=== PATIENT | female | born 1945 | race Caucasian/White ===

== ENCOUNTER 2016-12-29 20:00 | Observation (INO) | payer MEDICARE ==
[2016-12-29] MEDS ORDERED: Ondansetron 4 MG/2 ML SDV IVPUSH ONE (20:45)
[2016-12-29] MEDS ORDERED: Sodium Chloride 0.9% 1,000 ML IV ONE (20:45)
--- NOTE | 2016-12-29 21:10 | EDM.PDOC ---
ED HPI GENERAL MEDICAL PROBLEM - General Chief Complaint: General Stated Complaint: LIGHT HEADED Time Seen by Provider: 12/29/16 20:38 Source of Information: Reports: Patient, Family (son) History Limitations: Reports: No Limitations - History of Present Illness INITIAL COMMENTS - FREE TEXT/NARRATIVE: Patient presents to ER after getting her platelet transfusion here in the hospital, with lightheadedness and nearly fainted when walking out of the hospital. She says she has had diarrhea 4 times today and vomited once. She hasn't been drinking very much water she admits. She had a recent UTI and finished antibiotics 4 days ago with no recent dysuria. She has Myelodysplastic Syndrome. No CHF. She has had episodes of vomiting, diarrhea and dehydration with her chemo a few times in the past. She is still having nausea. - Related Data Allergies Allergy/AdvReac Type Severity Reaction Status Date / Time Penicillins Allergy Respiratory Verified 12/29/16 20:30 Distress Home Meds: Home Meds Cholestyramine/Sucrose [Cholestyramine Packet] 4 gm PO DAILY PRN 09/08/16 [ History] Citalopram Hydrobromide [Celexa] 40 mg PO DAILY 09/08/16 [History] LORazepam 1 mg PO Q6HR PRN 09/08/16 [History] traZODone HCl [Trazodone HCl] 50 mg PO BEDTIME 09/08/16 [History] Albuterol [Proventil Neb Soln] 1 ampule INH QID PRN 12/08/16 [History] Ferrous Sulfate 325 mg PO DAILY 12/08/16 [History] Omeprazole 20 mg PO DAILY PRN 12/08/16 [History] Cholecalciferol (Vitamin D3) [Vitamin D3] 1,000 units PO DAILY 12/09/16 [History ] Cyanocobalamin (Vitamin B12) [Vitamin B12] 500 mcg PO DAILY 12/09/16 [History] Methocarbamol [Robaxin] 500 mg PO TID PRN 12/09/16 [History] Ondansetron [Zofran ODT] 4 mg PO Q6H PRN 12/09/16 [History] Turmeric/Turmeric Root Extract [Turmeric 500 mg Capsule] 1 cap PO DAILY [History] hydrOXYzine HCl [Atarax] 25 mg PO Q6H PRN 12/09/16 [History] Fluticasone/Vilanterol [Breo Ellipta 200-25 Mcg INH] 1 puff INH DAILY 12/29/16 [ History] Past Medical History HEENT History: Reports: Impaired Vision Cardiovascular History: Reports: Blood Clots/VTE/DVT, Hypertension, SOB on Exertion Respiratory History: Reports: COPD Gastrointestinal History: Reports: Chronic Diarrhea Genitourinary History: Reports: None 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: Musculoskeletal History: Reports: Arthritis Psychiatric History: Reports: Anxiety, Depression, Panic Attack Hematologic History: Reports: Other (See Below) Other Hematologic History: platelets range from 8-10 with MDS Immunologic History: Reports: Immunosuppression Oncologic (Cancer) History: Reports: Other (See Below) Other Oncologic History: MDS Dermatologic History: Reports: Psoriasis - Infectious Disease History Infectious Disease History: Reports: Chicken Pox, Measles, Mumps, Shingles - Past Surgical History HEENT Surgical History: Reports: None Cardiovascular Surgical History: Reports: None Respiratory Surgical History: Reports: None GI Surgical History: Reports: Cholecystectomy, Colonoscopy, EGD Female Surgical History: Reports: Hysterectomy Musculoskeletal Surgical History: Reports: None Oncologic Surgical History: Reports: None Dermatological Surgical History: Reports: None Social & Family History - Tobacco Use Smoking Status *Q: Former Smoker Years of Tobacco use: 35 Packs/Tins Daily: 1 Used Tobacco, but Quit: Yes Month Tobacco Last Used: 05/31/2013 Second Hand Smoke Exposure: No - Caffeine Use Caffeine Use: Reports: Coffee, Tea - Alcohol Use Days Per Week of Alcohol Use: 7 Number of Drinks Per Day: 20 Total Drinks Per Week: 140 - Recreational Drug Use Recreational Drug Use: Yes Drug Use in Last 12 Months: No Recreational Drug Type: Reports: Amphetamines (Speed), Marijuana/Hashish ED ROS GENERAL - Review of Systems Review Of Systems: See Below Constitutional: Reports: Decreased Appetite. Denies: Fever, Chills, Diaphoresis HEENT: Denies: Throat Pain, Vision Change Respiratory: Denies: Shortness of Breath, Cough Cardiovascular: Reports: Lightheadedness, Syncope (near). Denies: Chest Pain GI/Abdominal: Reports: Diarrhea, Vomiting. Denies: Abdominal Pain, Constipation : Denies: Dysuria, Flank Pain Musculoskeletal: Reports: No Symptoms Skin: Denies: Cyanosis, Jaundice, Mottled, Pallor, Diaphoresis Neurological: Denies: Confusion, Dizziness, Headache, Seizure, Syncope, Trouble Speaking Psychiatric: Denies: Agitation, Anxiety, Confusion ED EXAM, GENERAL - Physical Exam Exam: See Below Exam Limited By: No Limitations General Appearance: Alert, WD/WN, No Apparent Distress Eye Exam: Bilateral Eye: EOMI, Normal Inspection, PERRL Ears: Normal External Exam, Hearing Grossly Normal Nose: Normal Inspection, No Blood Throat/Mouth: Normal Inspection, Normal Lips, Normal Oropharynx, Normal Voice, No Airway Compromise Head: Atraumatic, Normocephalic Neck: Normal Inspection, Supple, Non-Tender, Full Range of Motion Respiratory/Chest: No Respiratory Distress, Lungs Clear, Normal Breath Sounds, No Accessory Muscle Use Cardiovascular: Normal Peripheral Pulses, Regular Rate, Rhythm, No Murmur Peripheral Pulses: 2+: Carotid (L), Carotid (R), Radial (L), Radial (R), Posterior Tibial (L), Posterior Tibial (R) GI/Abdominal: Normal Bowel Sounds, Soft, No Organomegaly, Tender (mildly, non- localized). No: Distended, Guarding, Rigid Back Exam: No: CVA Tenderness (L), CVA Tenderness (R) Extremities: Normal Inspection, Normal Range of Motion, Non-Tender, No Pedal Edema Neurological: Alert, Oriented, Normal Cognition, No Motor/Sensory Deficits Psychiatric: Normal Affect, Normal Mood Skin Exam: Warm, Dry, Intact, Normal Color, No Rash Course - Vital Signs Last Recorded V/S: Last Vital Signs Temp 98.3 F 12/29/16 20:00 Pulse 75 12/29/16 20:00 Resp 22 H 12/29/16 20:00 BP 125/54 L 12/29/16 20:00 Pulse Ox 82 L 12/29/16 20:00 - Orders/Labs/Meds Orders: Active Orders 24 hr Category Date Time Status Patient Status Manage Transfer [TRANSFER] Routine ADT 12/29/16 22:15 Ordered Patient Status [ADT] Routine ADT 12/29/16 22:14 Ordered RED BLOOD CELLS LP [BBK] Routine Lab 12/29/16 21:53 Ordered TYPE AND SCREEN [BBK] Stat Lab 12/29/16 21:53 Ordered Transfuse PRBC [Transfuse Red Blood Cells] [COMM] Oth 12/29/16 22:04 Ordered Routine Labs: Laboratory Tests 12/29/16 12/29/16 Range/Units 20:55 20:55 WBC 4.8 L (5.0-10.0) 10^3/uL RBC 2.54 L (3.80-5.50) 10^6/uL Hgb 6.6 L* (12.0-16.0) g/dL Hct 21.7 L (37.0-47.0) % MCV 85.6 (82.0-92.0) fL MCH 26.1 L (27.0-31.0) pg MCHC 30.5 L (32.0-36.0) g/dL RDW 27.3 H (11.5-14.5) % Plt Count 32 L (150-300) 10^3/uL MPV 7.0 L (7.4-10.4) fL Neut % (Auto) 61.1 (50.0-70.0) % Lymph % (Auto) 26.1 (20.0-40.0) % [place] % (Auto) 11.5 H (2.0-8.0) % Eos % (Auto) 0.7 L (1.0-3.0) % Baso % (Auto) 0.6 (0.0-1.0) % Neut # (Auto) 2.9 (2.5-7.0) 10^3/uL Lymph # (Auto) 1.3 (1.0-4.0) 10^3/uL [place] # (Auto) 0.6 (0.1-0.8) 10^3/uL Eos # (Auto) 0.0 L (0.1-0.3) 10^3/uL Baso # (Auto) 0.0 (0.0-0.1) 10^3/uL Sodium 143 (136-145) mmol/L Potassium 3.9 (3.3-5.3) mmol/L Chloride 107 (98-115) mmol/L Carbon Dioxide 25.5 (21.0-32.0) mmol/L BUN 16 (6-25) mg/dL Creatinine 0.93 (0.51-1.17) mg/dL Est Cr Clr Drug Dosing 52.69 mL/min Estimated GFR (MDRD) 60 mL/min Glucose 112 H (70-110) mg/dL Calcium 8.5 L (8.7-10.3) mg/dL Meds: Medications Discontinued Medications Generic Name Dose Route Start Last Admin Trade Name Lexy PRN Reason Stop Dose Admin Sodium Chloride 1,000 mls @ 999 mls/hr 12/29/16 20:45 12/29/16 21:03 Normal Saline IV 12/29/16 21:45 999 mls/hr .BOLUS ONE Administration Ondansetron HCl 4 mg 12/29/16 20:45 12/29/16 21:04 Zofran IVPUSH 12/29/16 20:46 4 mg ONETIME ONE Administration - Re-Assessments/Exams Free Text/Narrative Re-Assessment/Exam: 12/29/16 22:09 Hg is 6.6 and platelets 32. Recent labs show Hg 7.7 to 8.5 in last few weeks. Pt has never needed a transfusion before but has had platelets several times. I discussed with Dr. Evelin Simon who accepts for admit and two units of PRBCs. Pt agrees as well. Pt has had one liter of NS and will give the two units IP. Departure - Departure Time of Disposition: 22:12 Disposition: Refer to Observation Condition: Good Clinical Impression: Myelodysplastic syndrome Anemia Qualifiers: Anemia type: other cause - Discharge Information Referrals: Evelin Briones MD [Primary Care Provider] - Forms: ED Department Discharge - My Orders Last 24 Hours: My Active Orders 12/29/16 21:53 RED BLOOD CELLS LP [BBK] Routine TYPE AND SCREEN [BBK] Stat 12/29/16 22:04 Transfuse PRBC [Transfuse Red Blood Cells] [COMM] Routine 12/29/16 22:14 Patient Status [ADT] Routine 12/29/16 22:15 Patient Status Manage Transfer [TRANSFER] Routine - Assessment/Plan Last 24 Hours: My Active Orders 12/29/16 21:53 RED BLOOD CELLS LP [BBK] Routine TYPE AND SCREEN [BBK] Stat 12/29/16 22:04 Transfuse PRBC [Transfuse Red Blood Cells] [COMM] Routine 12/29/16 22:14 Patient Status [ADT] Routine 12/29/16 22:15 Patient Status Manage Transfer [TRANSFER] Routine
[2016-12-29] MEDS ORDERED: Cholestyramine/Sucrose Powder 4 GM Packet PO PRN (22:54)
[2016-12-29] MEDS ORDERED: LORazepam 0.5 MG Tab PO PRN (22:54)
[2016-12-29] MEDS ORDERED: hydrOXYzine HCl 25 MG Tab PO PRN (22:54)
[2016-12-29] MEDS ORDERED: Ondansetron 4 MG Tab.DIS PO PRN (22:54)
[2016-12-29] MEDS ORDERED: Methocarbamol 500 MG Tab PO PRN (22:54)
[2016-12-29] MEDS ORDERED: Omeprazole 20 MG Cap.CR PO PRN (22:54)
[2016-12-29] MEDS ORDERED: Ondansetron 4 MG/2 ML SDV IVPUSH PRN (22:58)
[2016-12-29] MEDS ORDERED: Albuterol 0.083% 2.5 MG/3 ML Neb Soln INH PRN (23:41)
[2016-12-30] MEDS ORDERED: traZODone 50 MG Tab PO ONE
[2016-12-30 06:31] VITALS: BP 112/55
[2016-12-30] MEDS ORDERED: Ferrous Sulfate 325 MG Tab PO SCH (08:00)
--- NOTE | 2016-12-30 08:38 | PCM.DCSUM1 ---
Discharge Summary - Hospital Course Free Text/Narrative:: Jennifer is being discharged from observation. She as admitted yesterday (12/29 ) due to anemia. She has a hx of myelodysplastic syndrome, thus far primarily affecting her platelets. She has an oncologist at [facility] in [place]. She does take chemotherapy. She has also had platelet transfusions. She had just finished getting her platelets yesterday when she went to leave and felt very weak and lightheaded, nearly having a syncopal episode. She was brought to the ER for evaluation. She had also had some diarrhea and an episode of vomiting. IVF's were started. Labs were obtained. She was noted to have a hemoglobin of 6.6. She does have a hx of anemia with recent levels being as high as 8.5. She has no sign of active blood loss. She was typed and screened and received 2 units of PRBC's. She states this morning she is feeling much better. She has more strength. She feels she could go home. Hemoglobin this AM Was 8.7, platelet were 38,000 (up from 32,000 yesterday). BP has been stable. Nausea has resolved and she was able to eat breakfast. She has not had a BM since she was admitted last evening but is passing gas. She is due for repeat CBC on 01/04 as well as going through another round of chemotherapy next week. - Discharge Data Discharge Date: 12/30/16 Discharge Disposition: Home, Self-Care 01 Condition: Good - Patient Instructions Diet: Regular Diet as Tolerated - Discharge Plan Home Medications: Home Meds Cholestyramine/Sucrose [Cholestyramine] 4 gm PO DAILY PRN 09/08/16 [History] Citalopram Hydrobromide [Celexa] 40 mg PO DAILY 09/08/16 [History] LORazepam 1 mg PO Q6HR PRN 09/08/16 [History] traZODone HCl [Trazodone HCl] 50 mg PO BEDTIME 09/08/16 [History] Albuterol [Proventil Neb Soln] 2.5 mg INH QID PRN 12/08/16 [History] Ferrous Sulfate 325 mg PO DAILY 12/08/16 [History] Omeprazole 20 mg PO DAILY PRN 12/08/16 [History] Cholecalciferol (Vitamin D3) [Vitamin D3] 1,000 units PO DAILY 12/09/16 [History ] Cyanocobalamin (Vitamin B12) [Vitamin B12] 500 mcg PO DAILY 12/09/16 [History] Methocarbamol [Robaxin] 500 mg PO TID PRN 12/09/16 [History] Ondansetron [Zofran ODT] 4 mg PO Q6H PRN 12/09/16 [History] Turmeric/Turmeric Root Extract [Turmeric 500 mg Capsule] 1 cap PO DAILY [History] hydrOXYzine HCl [Atarax] 25 mg PO Q6H PRN 12/09/16 [History] Fluticasone/Vilanterol [Breo Ellipta 200-25 Mcg INH] 1 puff INH DAILY 12/29/16 [ History] Referrals: Evelin Briones MD [Primary Care Provider] - - Discharge Summary/Plan Comment DC Time >30 min.: No - General Info Date of Service: 12/30/16 Admission Dx/Problem (Free Text: Anemia, MDS. Subjective Update: 10 point ROS obtained, all pertinent positives listed in summary, all other systems are negative. - Patient Data Vitals - Most Recent: Last Vital Signs Temp 97.5 F 12/30/16 06:30 Pulse 51 L 12/30/16 06:30 Resp 20 12/30/16 06:30 BP 112/55 L 12/30/16 06:30 Pulse Ox 96 12/30/16 06:00 Weight - Most Recent: 171 lb 9.6 oz I&O - Last 24 hours: Intake & Output 12/29/16 12/30/16 12/30/16 22:59 06:59 14:59 Intake Total 1199 1779 Balance 1199 1779 Lab Results - Last 24 hrs: Laboratory Results - last 24 hr 12/30/16 Range/Units 07:40 WBC 3.9 L (5.0-10.0) 10^3/uL RBC 3.29 L (3.80-5.50) 10^6/uL Hgb 8.7 L (12.0-16.0) g/dL Hct 28.6 L (37.0-47.0) % MCV 87.0 (82.0-92.0) fL MCH 26.5 L (27.0-31.0) pg MCHC 30.4 L (32.0-36.0) g/dL RDW 22.4 H (11.5-14.5) % Plt Count 38 L (150-300) 10^3/uL MPV 11.0 H (7.4-10.4) fL Neut % (Auto) 49.5 L (50.0-70.0) % Lymph % (Auto) 42.9 H (20.0-40.0) % [place] % (Auto) 7.1 (2.0-8.0) % Eos % (Auto) 0.1 L (1.0-3.0) % Baso % (Auto) 0.4 (0.0-1.0) % Neut # (Auto) 1.9 L (2.5-7.0) 10^3/uL Lymph # (Auto) 1.7 (1.0-4.0) 10^3/uL [place] # (Auto) 0.3 (0.1-0.8) 10^3/uL Eos # (Auto) 0.0 L (0.1-0.3) 10^3/uL Baso # (Auto) 0.0 (0.0-0.1) 10^3/uL Med Orders - Current: Current Medications Albuterol (Proventil Neb Soln) 2.5 mg INH QID PRN PRN Reason: Dyspnea Cholecalciferol (Vitamin D3) 1,000 units PO DAILY [facility] Last Admin: 12/30/16 08:31 Dose: 1,000 units Cholestyramine Resin (Cholestyramine Packet) 4 gm PO DAILY PRN PRN Reason: Diarrhea Citalopram Hydrobromide (Celexa) 40 mg PO DAILY [facility] Last Admin: 12/30/16 08:31 Dose: 40 mg Cyanocobalamin (Vitamin B12) 500 mcg PO DAILY [facility] Last Admin: 12/30/16 08:31 Dose: 500 mcg Ferrous Sulfate (Ferrous Sulfate) 325 mg PO WITHBREAKFAST [facility] Last Admin: 12/30/16 08:31 Dose: 325 mg Hydroxyzine HCl (Atarax) 25 mg PO Q6H PRN PRN Reason: Itching Lorazepam (Ativan) 1 mg PO Q6H PRN PRN Reason: Anxiety Methocarbamol (Robaxin) 500 mg PO TID PRN PRN Reason: muscle spasms Omeprazole (Omeprazole) 20 mg PO DAILY PRN PRN Reason: reflux Ondansetron HCl (Zofran Odt) 4 mg PO Q6H PRN PRN Reason: Nausea Ondansetron HCl (Zofran) 4 mg IVPUSH Q6H PRN PRN Reason: Nausea/Vomiting Trazodone HCl (Trazodone) 50 mg PO BEDTIME MIKIE Discontinued Medications Sodium Chloride (Normal Saline) 1,000 mls @ 999 mls/hr IV .BOLUS ONE Stop: 12/29/16 21:45 Last Admin: 12/29/16 21:03 Dose: 999 mls/hr Non-Formulary Medication (Turmeric/Turmeric Root Extract [Turmeric 500 Mg Capsule]) 1 cap PO DAILY MIKIE Ondansetron HCl (Zofran) 4 mg IVPUSH ONETIME ONE Stop: 12/29/16 20:46 Last Admin: 12/29/16 21:04 Dose: 4 mg Trazodone HCl (Trazodone) 50 mg PO ONETIME ONE Stop: 12/30/16 00:01 Last Admin: 12/30/16 00:37 Dose: 50 mg - Exam Quality Assessment: Reports: Supplemental Oxygen General: Reports: Alert, Oriented, Cooperative, No Acute Distress Lungs: Reports: Wheezing (Very faint expiratory wheeze at the left lung base, otherwise clear.) Cardiovascular: Reports: Regular Rate, Regular Rhythm, No Murmurs GI/Abdominal Exam: Normal Bowel Sounds *Q Meaningful Use (DIS) - VTE *Q VTE Criteria *Q: - Stroke *Q Stroke Criteria *Q: - AMI *Q AMI Criteria *Q:
[2016-12-30] MEDS ORDERED: Cholecalciferol (Vitamin D3) 1,000 Unit Tab PO SCH (09:00)
[2016-12-30] MEDS ORDERED: Citalopram 20 MG Tab PO SCH (09:00)
[2016-12-30] MEDS ORDERED: Cyanocobalamin (Vitamin B12) 500 MCG Tab PO SCH (09:00)
[2016-12-30] MEDS ORDERED: Fluticasone/Vilanterol 200 MCG/25 MCG Inhalation Powder Kit of 14 IH SCH (09:00)
[2016-12-30] MEDS ORDERED: traZODone 50 MG Tab PO SCH (21:00)
== END 2016-12-30 11:45 | disposition home or self-care (01) ==
LOC: KA.ED 20:00 → KA.MS 22:15
PROVIDERS: ADMIT Physician Assistant Surgical; ATTEND Internal Medicine
DX: D69.3 Immune thrombocytopenic purpura (principal); D46.Z Other myelodysplastic syndromes; I10 Essential (primary) hypertension; J44.9 Chronic obstructive pulmonary disease, unspecified; F41.9 Anxiety disorder, unspecified; F32.9 Major depressive disorder, single episode, unspecified; Z90.49 Acquired absence of other specified parts of digestive tract; Z90.710 Acquired absence of both cervix and uterus; Z98.890 Other specified postprocedural states; Z87.891 Personal history of nicotine dependence; Z88.0 Allergy status to penicillin; Z79.899 Other long term (current) drug therapy
CPT/HCPCS: 36415; 36430; 80048; 85025; 86850; 86900; 86901; 86920; 86922; 96361; 96374; 99285; A9270; G0378; J2405; J7030; J7050; P9016; P9034; 99220

== ENCOUNTER 2017-02-14 21:52 | Inpatient (IN) | payer MEDICARE ==
--- NOTE | 2017-02-14 22:33 | EDM.PDOC ---
ED HPI GENERAL MEDICAL PROBLEM - General Chief Complaint: Gastrointestinal Problem Stated Complaint: rectal bleeding Time Seen by Provider: 02/14/17 22:27 Source of Information: Reports: Patient History Limitations: Reports: No Limitations - History of Present Illness INITIAL COMMENTS - FREE TEXT/NARRATIVE: Patient is a 71-year-old female who presents to emergency department this evening with a complaint of rectal bleeding. She states that she had a bowel movement at noon today and noticed blood on the toilet paper and some in the bowl. She wore an undergarment pad for most of the day and had to change it twice because blood had accumulated. Patient underwent transfusion for 2 units of blood and platelets yesterday for CA condition. Patient denies any bleeding from gums or urine, chest pain, shortness of breath, abdominal pain, day, blurry vision, or recent falls. Onset: Today Onset Date: 02/14/17 Onset Time: 12:00 Duration: Hour(s): Location: Reports: Other (rectum) Improves with: Reports: None Worsens with: Reports: None Associated Symptoms: Reports: No Other Symptoms - Related Data Allergies Allergy/AdvReac Type Severity Reaction Status Date / Time Penicillins Allergy Respiratory Verified 02/14/17 23:05 Distress Home Meds: Home Meds Cholestyramine/Sucrose [Cholestyramine] 4 gm PO DAILY PRN 09/08/16 [History] Citalopram Hydrobromide [Celexa] 40 mg PO DAILY 09/08/16 [History] LORazepam 1 mg PO Q6HR PRN 09/08/16 [History] traZODone HCl [Trazodone HCl] 50 mg PO BEDTIME 09/08/16 [History] Albuterol [Proventil Neb Soln] 2.5 mg INH QID PRN 12/08/16 [History] Ferrous Sulfate 325 mg PO DAILY 12/08/16 [History] Cholecalciferol (Vitamin D3) [Vitamin D3] 1,000 units PO DAILY 12/09/16 [History ] Cyanocobalamin (Vitamin B12) [Vitamin B12] 500 mcg PO DAILY 12/09/16 [History] Methocarbamol [Robaxin] 500 mg PO TID PRN 12/09/16 [History] Ondansetron [Zofran ODT] 4 mg PO Q6H PRN 12/09/16 [History] Turmeric/Turmeric Root Extract [Turmeric 500 mg Capsule] 1 cap PO DAILY [History] hydrOXYzine HCl [Atarax] 25 mg PO Q6H PRN 12/09/16 [History] Fluticasone/Vilanterol [Breo Ellipta 200-25 Mcg INH] 1 puff INH DAILY 12/29/16 [ History] Past Medical History HEENT History: Reports: Impaired Vision Cardiovascular History: Reports: Blood Clots/VTE/DVT, Hypertension, SOB on Exertion Respiratory History: Reports: COPD Gastrointestinal History: Reports: Chronic Diarrhea Genitourinary History: Reports: None [employer]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[employer]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: Musculoskeletal History: Reports: Arthritis Psychiatric History: Reports: Anxiety, Depression, Panic Attack Hematologic History: Reports: Other (See Below) Other Hematologic History: platelets range from 8-10 with MDS Immunologic History: Reports: Immunosuppression Oncologic (Cancer) History: Reports: Other (See Below) Other Oncologic History: MDS Dermatologic History: Reports: Psoriasis - Infectious Disease History Infectious Disease History: Reports: Chicken Pox, Measles, Mumps, Shingles - Past Surgical History HEENT Surgical History: Reports: None Cardiovascular Surgical History: Reports: None Respiratory Surgical History: Reports: None GI Surgical History: Reports: Cholecystectomy, Colonoscopy, EGD Female Surgical History: Reports: Hysterectomy Musculoskeletal Surgical History: Reports: None Oncologic Surgical History: Reports: None Dermatological Surgical History: Reports: None Social & Family History - Tobacco Use Smoking Status *Q: Former Smoker Years of Tobacco use: 35 Packs/Tins Daily: 1 Used Tobacco, but Quit: Yes Month Tobacco Last Used: 05/31/2013 Second Hand Smoke Exposure: No - Caffeine Use Caffeine Use: Reports: Coffee, Tea - Alcohol Use Days Per Week of Alcohol Use: 0 Number of Drinks Per Day: 0 Total Drinks Per Week: 0 - Recreational Drug Use Recreational Drug Use: Yes Drug Use in Last 12 Months: No Recreational Drug Type: Reports: Amphetamines (Speed), Marijuana/Hashish Recreational Drug Use Frequency: Not Used In Over 6 Months ED ROS GENERAL - Review of Systems Review Of Systems: ROS reveals no pertinent complaints other than HPI. Constitutional: Reports: No Symptoms HEENT: Reports: No Symptoms Respiratory: Reports: No Symptoms Cardiovascular: Reports: No Symptoms Endocrine: Reports: No Symptoms GI/Abdominal: Reports: Bloody Stool, Diarrhea : Reports: No Symptoms Musculoskeletal: Reports: No Symptoms Skin: Reports: No Symptoms Neurological: Reports: No Symptoms Psychiatric: Reports: No Symptoms Hematologic/Lymphatic: Reports: Easy Bleeding, Easy Bruising Immunologic: Reports: No Symptoms ED EXAM, GENERAL - Physical Exam Exam: See Below Exam Limited By: No Limitations General Appearance: Alert, WD/WN, No Apparent Distress Eye Exam: Bilateral Eye: Normal Inspection Nose: Normal Inspection, Normal Mucosa, No Blood Throat/Mouth: Normal Inspection, Normal Oropharynx, No Airway Compromise Head: Atraumatic, Normocephalic Neck: Normal Inspection, Supple Respiratory/Chest: No Respiratory Distress, Lungs Clear, Normal Breath Sounds, No Accessory Muscle Use, Chest Non-Tender Cardiovascular: Regular Rate, Rhythm, No Murmur GI/Abdominal: Normal Bowel Sounds, Soft, Non-Tender Rectal (Female) Exam: Hemorrhoids Back Exam: Normal Inspection Extremities: Normal Inspection, No Pedal Edema Neurological: Alert, Oriented, Normal Cognition Psychiatric: Normal Affect, Normal Mood Skin Exam: Warm, Dry, Intact, Normal Color, No Rash Course - Vital Signs Last Recorded V/S: Last Vital Signs Temp 98.5 F 02/14/17 21:55 Pulse 71 02/14/17 21:55 Resp 20 02/14/17 21:55 BP 132/53 L 02/14/17 21:55 Pulse Ox 94 L 02/14/17 21:55 - Orders/Labs/Meds Orders: Active Orders 24 hr Category Date Time Status CBC WITH AUTO DIFF [HEME] Stat Lab 02/14/17 22:00 Ordered CMP [COMPREHENSIVE METABOLIC PN,CMP] [CHEM] Stat Lab 02/14/17 22:00 Ordered INR,PT,PROTHROMBIN TIME [COAG] Stat Lab 02/14/17 22:01 Ordered PTT,PARTIAL THROMBOPLSTIN TIME [COAG] Stat Lab 02/14/17 22:00 Ordered - Re-Assessments/Exams Free Text/Narrative Re-Assessment/Exam: 02/14/17 23:03 Patient afebrile, nontoxic appearing. Vital signs stable, asymptomatic. Platelets on 02/08 and 02/12 were 3L, and although the patient underwent transfusion yesterday, platelet values today are only 2L. WBC has remained stable. Patient will be given platelets and admitted to hospital. 02/14/17 23:05 Departure - Departure Time of Disposition: 23:14 Disposition: Admitted As Inpatient 67 Condition: Fair Clinical Impression: Thrombocytopenia, Hemorrhoids, external, Rectal bleeding - Discharge Information - My Orders Last 24 Hours: My Active Orders 02/14/17 22:00 CBC WITH AUTO DIFF [HEME] Stat CMP [COMPREHENSIVE METABOLIC PN,CMP] [CHEM] Stat PTT,PARTIAL THROMBOPLSTIN TIME [COAG] Stat 02/14/17 22:01 INR,PT,PROTHROMBIN TIME [COAG] Stat - Assessment/Plan Last 24 Hours: My Active Orders 02/14/17 22:00 CBC WITH AUTO DIFF [HEME] Stat CMP [COMPREHENSIVE METABOLIC PN,CMP] [CHEM] Stat PTT,PARTIAL THROMBOPLSTIN TIME [COAG] Stat 02/14/17 22:01 INR,PT,PROTHROMBIN TIME [COAG] Stat Assessment:: Thrombocytopenia Plan: Admission
[2017-02-14 22:51] LABS: CHLORIDE,CL 107 mmol/L (98-115); SODIUM,NA 142 mmol/L (136-145)
[2017-02-14] MEDS ORDERED: Acetaminophen 325 MG Tab PO ONE (23:01)
[2017-02-14] MEDS ORDERED: diphenhydrAMINE 25 MG Cap PO ONE (23:02)
[2017-02-14] MEDS ORDERED: Albuterol 0.083% 2.5 MG/3 ML Neb Soln INH PRN (23:11)
[2017-02-14] MEDS ORDERED: Ondansetron 4 MG Tab.DIS PO PRN (23:11)
[2017-02-14] MEDS ORDERED: LORazepam 0.5 MG Tab PO PRN (23:11)
[2017-02-14] MEDS ORDERED: hydrOXYzine HCl 25 MG Tab PO PRN (23:11)
[2017-02-15] MEDS ORDERED: traZODone 50 MG Tab ONE (01:11)
[2017-02-15 06:55] VITALS: BP 105/50
[2017-02-15] MEDS ORDERED: Ferrous Sulfate 325 MG Tab PO SCH (09:00)
[2017-02-15] MEDS ORDERED: BREO ELLIPTA INH SCH (09:00)
[2017-02-15] MEDS ORDERED: Fluticasone/Vilanterol 200 MCG/25 MCG Inhalation Powder Kit of 14 IH SCH (09:00)
[2017-02-15] MEDS ORDERED: Citalopram 20 MG Tab PO SCH (09:00)
--- NOTE | 2017-02-15 09:44 | PCM.DCSUM1 ---
Discharge Summary - Hospital Course Free Text/Narrative:: Phyllis is discharged from observation due to low platelets and hemorrhoidal bleeding. She follows with Dr. Granados for myelodysplastic syndrome with pancytopenia. On 02/13/17 she received platelets as well as PRBC's due to labs on 02/12/17 showing WBC of 1.5, Hemoglobin 6.6 and platelets of 3. She presented to the ER on 02/14/17 with rectal bleeding which was found to be related to external hemorrhoids. She has had no episodes of bleeding since she has been in. She was found to have platelets of 2 upon presentation to the ER and so she was given another round of platelets and labs this morning show a stable WBC of 1.4 with a hemoglobin of 7.1 and platelets of 18. She has no dizziness or lightheadedness, some mild SOB that is unchanged from her baseline. "I feel pretty good". She is ready to be discharged home. Of note, she dose state that her Breo is not working as well as her symbicort did and she would like to discuss going back on the symbicort, but she will wait and do this at her next clinic appointment. - Discharge Data Discharge Date: 02/15/17 Discharge Disposition: Home, Self-Care 01 Condition: Good - Discharge Diagnosis/Problem(s) (1) Hemorrhoids, external SNOMED Code(s): 54498800 ICD Code: K64.4 - RESIDUAL HEMORRHOIDAL SKIN TAGS Status: Acute Current Visit: Yes (2) Rectal bleeding SNOMED Code(s): 68211994 ICD Code: K62.5 - HEMORRHAGE OF ANUS AND RECTUM Status: Acute Current Visit: Yes (3) Thrombocytopenia SNOMED Code(s): 316602445 ICD Code: D69.6 - THROMBOCYTOPENIA, UNSPECIFIED Status: Acute Current Visit: Yes (4) MDS (myelodysplastic syndrome) SNOMED Code(s): 028173986 ICD Code: D46.9 - MYELODYSPLASTIC SYNDROME, UNSPECIFIED Status: Acute Current Visit: No - Patient Instructions Diet: Regular Diet as Tolerated Activity: As Tolerated - Discharge Plan Home Medications: Home Meds Cholestyramine/Sucrose [Cholestyramine] 4 gm PO DAILY PRN 09/08/16 [History] Citalopram Hydrobromide [Celexa] 40 mg PO DAILY 09/08/16 [History] LORazepam 1 mg PO Q6HR PRN 09/08/16 [History] traZODone HCl [Trazodone HCl] 50 - 100 mg PO BEDTIME 09/08/16 [History] Albuterol [Proventil Neb Soln] 2.5 mg INH QID PRN 12/08/16 [History] Ferrous Sulfate 325 mg PO DAILY 12/08/16 [History] Cholecalciferol (Vitamin D3) [Vitamin D3] 1,000 units PO DAILY 12/09/16 [History ] Cyanocobalamin (Vitamin B12) [Vitamin B12] 500 mcg PO DAILY 12/09/16 [History] Methocarbamol [Robaxin] 500 mg PO TID PRN 12/09/16 [History] Turmeric/Turmeric Root Extract [Turmeric 500 mg Capsule] 1 cap PO DAILY [History] hydrOXYzine HCl [Atarax] 25 mg PO Q6H PRN 12/09/16 [History] Fluticasone/Vilanterol [Breo Ellipta 200-25 Mcg INH] 1 puff INH DAILY 12/29/16 [ History] Ondansetron HCl [Ondansetron] 8 mg PO Q6H PRN 02/15/17 [History] - Discharge Summary/Plan Comment DC Time >30 min.: No - General Info Date of Service: 02/15/17 Admission Dx/Problem (Free Text: Pancytopenia with profound thrombocytopenia secondary to MDS with hemorrhoidal bleeding. - Review of Systems Systems Review Comment: 10 point ROS obtained, all pertinent positives listed in the HPI, all other systems negative. - Patient Data Vitals - Most Recent: Last Vital Signs Temp 97.6 F 02/15/17 06:54 Pulse 61 02/15/17 06:54 Resp 16 02/15/17 06:54 BP 105/50 L 02/15/17 06:54 Pulse Ox 98 02/15/17 06:54 Weight - Most Recent: 162 lb I&O - Last 24 hours: Intake & Output 02/14/17 02/15/17 02/15/17 22:59 06:59 14:59 Intake Total 654 Output Total 1000 Balance -346 Lab Results - Last 24 hrs: Laboratory Results - last 24 hr 11/26/17 11/27/17 11/27/17 Range/Units 23:32 07:22 07:22 WBC 1.4 L* (5.0-10.0) 10^3/uL RBC 2.44 L (3.80-5.50) 10^6/uL Hgb 7.1 L (12.0-16.0) g/dL Hct 20.8 L (37.0-47.0) % MCV 85.3 (82.0-92.0) fL MCH 29.3 (27.0-31.0) pg MCHC 34.3 (32.0-36.0) g/dL RDW 16.7 H (11.5-14.5) % Plt Count 18 L* (150-300) 10^3/uL MPV 10.4 (7.4-10.4) fL Add Manual Diff Yes Magnesium 1.7 L (1.8-2.4) mg/dL Blood Type O POSITIVE Med Orders - Current: Current Medications Albuterol (Proventil Neb Soln) 2.5 mg INH QID PRN PRN Reason: Dyspnea Citalopram Hydrobromide (Celexa) 40 mg PO DAILY MIKIE Ferrous Sulfate (Ferrous Sulfate) 325 mg PO DAILY MIKIE Hydroxyzine HCl (Atarax) 25 mg PO Q6H PRN PRN Reason: Itching Lorazepam (Ativan) 1 mg PO Q6HR PRN PRN Reason: Anxiety Ondansetron HCl (Zofran Odt) 4 mg PO Q6H PRN PRN Reason: Nausea Ptom Breo Ellipta (Fluticasone /Vilanterol) 200 Mcg /25 Mcg Inhalation Powder 0 each INH DAILY [facility] Last Admin: 02/15/17 08:46 Dose: 1 each Trazodone HCl (Trazodone) 50 mg PO BEDTIME MIKIE Last Admin: 02/15/17 01:17 Dose: 50 mg Discontinued Medications Acetaminophen (Tylenol) 325 mg PO NOW ONE Stop: 02/14/17 23:02 Last Admin: 02/15/17 00:11 Dose: 325 mg Diphenhydramine HCl (Benadryl) 25 mg PO ONETIME ONE Stop: 02/14/17 23:03 Last Admin: 02/15/17 00:12 Dose: 25 mg Sodium Chloride (Normal Saline) 150 mls @ 25 mls/hr IV ONETIME ONE Stop: 02/15/17 06:14 Last Admin: 02/15/17 02:20 Dose: Not Given Sodium Chloride (Normal Saline) Confirm Administered Dose 150 mls @ as directed .ROUTE .STK-MED ONE Stop: 02/15/17 00:06 Last Admin: 02/15/17 01:08 Dose: 25 ml Non-Formulary Medication (Lorazepam [Lorazepam]) 1 mg PO Q6HR PRN PRN Reason: Anxiety Trazodone HCl (Trazodone) Confirm Administered Dose 50 mg .ROUTE .STK-MED ONE Stop: 02/15/17 01:12 Last Admin: 02/15/17 02:19 Dose: Not Given - Exam Quality Assessment: Reports: Supplemental Oxygen General: Reports: Alert, Oriented, Cooperative, No Acute Distress Lungs: Reports: Decreased Breath Sounds, Wheezing (Mild wheezing at the bases bilaterally.) Cardiovascular: Reports: Regular Rate, Regular Rhythm, No Murmurs GI/Abdominal Exam: Normal Bowel Sounds *Q Meaningful Use (DIS) - VTE *Q VTE Criteria *Q: - Stroke *Q Stroke Criteria *Q: - AMI *Q AMI Criteria *Q:
[2017-02-15] MEDS ORDERED: traZODone 50 MG Tab PO SCH (21:00)
== END 2017-02-15 10:53 | disposition home or self-care (01) | DRG 813 ==
LOC: KA.ED 21:52 → KA.MS 23:20
PROVIDERS: ADMIT Physician Assistant Surgical; ATTEND Internal Medicine
PROC: 30233N1 Transfusion of Nonautologous Red Blood Cells into Peripheral Vein, Percutaneous Approach (ICD-10-PCS; principal; 2017-02-15)
DX: D69.6 Thrombocytopenia, unspecified (principal); K62.5 Hemorrhage of anus and rectum; D61.818 Other pancytopenia; K64.4 Residual hemorrhoidal skin tags; I10 Essential (primary) hypertension; J44.9 Chronic obstructive pulmonary disease, unspecified; F41.8 Other specified anxiety disorders; Z87.891 Personal history of nicotine dependence; Z88.0 Allergy status to penicillin; D46.9 Myelodysplastic syndrome, unspecified; Z86.718 Personal history of other venous thrombosis and embolism; Z79.899 Other long term (current) drug therapy
CPT/HCPCS: 36415; 36430; 80053; 83735; 85025; 85610; 85730; 86900; 86901; 94640-76; 99285; A9270-GY; J7030; P9037

== ENCOUNTER 2017-02-20 20:30 | Inpatient (IN) | payer MEDICARE ==
--- NOTE | 2017-02-20 21:04 | EDM.PDOC ---
ED HPI GENERAL MEDICAL PROBLEM - General Chief Complaint: General Stated Complaint: bleeding Time Seen by Provider: 02/20/17 20:49 Source of Information: Reports: Patient History Limitations: Reports: No Limitations - History of Present Illness INITIAL COMMENTS - FREE TEXT/NARRATIVE: Patient presents with ecchymosis and swelling of right dorsal wrist. She has myelodysplastic syndrome and thrombocytopenia. A week ago she was admitted overnight for platelets and rectal/hemorrhoid bleeding. She has COPD and says for the past week she has noticed increased shortness of breath along with a productive cough for 2-3 days. She wasn't aware of a fever but with ER vitals temp is elevated. - Related Data Allergies Allergy/AdvReac Type Severity Reaction Status Date / Time Penicillins Allergy Respiratory Verified 02/20/17 21:35 Distress Home Meds: Home Meds Cholestyramine/Sucrose [Cholestyramine] 4 gm PO DAILY PRN 09/08/16 [History] Citalopram Hydrobromide [Celexa] 40 mg PO DAILY 09/08/16 [History] LORazepam 1 mg PO Q6HR PRN 09/08/16 [History] traZODone HCl [Trazodone HCl] 50 - 100 mg PO BEDTIME 09/08/16 [History] Albuterol [Proventil Neb Soln] 2.5 mg INH QID PRN 12/08/16 [History] Ferrous Sulfate 325 mg PO DAILY 12/08/16 [History] Cholecalciferol (Vitamin D3) [Vitamin D3] 1,000 units PO DAILY 12/09/16 [History ] Cyanocobalamin (Vitamin B12) [Vitamin B12] 500 mcg PO DAILY 12/09/16 [History] Methocarbamol [Robaxin] 500 mg PO TID PRN 12/09/16 [History] Turmeric/Turmeric Root Extract [Turmeric 500 mg Capsule] 1 cap PO DAILY [History] hydrOXYzine HCl [Atarax] 25 mg PO Q6H PRN 12/09/16 [History] Fluticasone/Vilanterol [Breo Ellipta 200-25 Mcg INH] 1 puff INH DAILY 12/29/16 [ History] Ondansetron HCl [Ondansetron] 8 mg PO Q6H PRN 02/15/17 [History] Past Medical History HEENT History: Reports: Impaired Vision Cardiovascular History: Reports: Blood Clots/VTE/DVT, Hypertension, SOB on Exertion Respiratory History: Reports: COPD Gastrointestinal History: Reports: Chronic Diarrhea Genitourinary History: Reports: None [employer]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: Musculoskeletal History: Reports: Arthritis Neurological History: Reports: None Psychiatric History: Reports: Anxiety, Depression, Panic Attack Hematologic History: Reports: Other (See Below) Other Hematologic History: platelets range from 8-10 with MDS Immunologic History: Reports: Immunosuppression Oncologic (Cancer) History: Reports: Other (See Below) Other Oncologic History: MDS Dermatologic History: Reports: Psoriasis - Infectious Disease History Infectious Disease History: Reports: Chicken Pox, Measles, Mumps, Shingles - Past Surgical History HEENT Surgical History: Reports: None Cardiovascular Surgical History: Reports: None Respiratory Surgical History: Reports: None GI Surgical History: Reports: Cholecystectomy, Colonoscopy, EGD Female Surgical History: Reports: Hysterectomy Musculoskeletal Surgical History: Reports: None Oncologic Surgical History: Reports: None Dermatological Surgical History: Reports: None Social & Family History - Tobacco Use Smoking Status *Q: Former Smoker Years of Tobacco use: 35 Packs/Tins Daily: 1 Used Tobacco, but Quit: Yes Month Tobacco Last Used: November Second Hand Smoke Exposure: No - Caffeine Use Caffeine Use: Reports: Coffee, Tea - Alcohol Use Days Per Week of Alcohol Use: 0 Number of Drinks Per Day: 0 Total Drinks Per Week: 0 - Recreational Drug Use Recreational Drug Use: Yes Drug Use in Last 12 Months: No Recreational Drug Type: Reports: Amphetamines (Speed), Marijuana/Hashish Recreational Drug Use Frequency: Not Used In Over 6 Months ED ROS GENERAL - Review of Systems Review Of Systems: See Below Constitutional: Reports: Fatigue (low energy). Denies: Fever, Chills, Weakness , Diaphoresis HEENT: Denies: Ear Discharge, Ear Pain, Throat Pain, Vision Change Respiratory: Reports: Shortness of Breath, Wheezing, Cough, Sputum Cardiovascular: Denies: Chest Pain, Lightheadedness, Syncope GI/Abdominal: Denies: Abdominal Pain, Hematochezia, Vomiting : Denies: Dysuria, Hematuria Musculoskeletal: Reports: No Symptoms Skin: Denies: Cyanosis, Jaundice, Mottled, Pallor, Diaphoresis Neurological: Denies: Confusion, Dizziness, Syncope, Trouble Speaking, Difficulty Walking ED EXAM, GENERAL - Physical Exam Exam: See Below Exam Limited By: No Limitations General Appearance: Alert, WD/WN, No Apparent Distress Eye Exam: Bilateral Eye: EOMI, Normal Inspection, PERRL Ears: Normal External Exam, Hearing Grossly Normal Nose: Normal Inspection, No Blood Throat/Mouth: Normal Lips, Normal Voice, No Airway Compromise Head: Atraumatic, Normocephalic Neck: Full Range of Motion Respiratory/Chest: Decreased Breath Sounds, Wheezing (bilat on expiration, L>R) . No: Crackles, Rales, Rhonchi, Stridor, Accessory Muscle Use Cardiovascular: No: Regular Rate, Rhythm, No Murmur GI/Abdominal: Soft, Non-Tender, No Organomegaly, No Distention Extremities: Normal Inspection, Normal Range of Motion, Non-Tender Neurological: Alert, Oriented, Normal Cognition, No Motor/Sensory Deficits Psychiatric: Normal Affect, Normal Mood Skin Exam: Warm, Dry, Intact, Normal Color, No Rash Course - Vital Signs Last Recorded V/S: Last Vital Signs Temp 101.2 F H 02/20/17 20:41 Pulse 91 02/20/17 20:41 Resp 20 02/20/17 20:41 BP 151/76 H 02/20/17 20:41 Pulse Ox 95 02/20/17 20:41 - Orders/Labs/Meds Orders: Active Orders 24 hr Category Date Time Status Patient Status Manage Transfer [TRANSFER] Routine ADT 02/20/17 22:12 Ordered Patient Status [ADT] Routine ADT 02/20/17 22:10 Ordered Chest 2V [CR] Stat Exams 02/20/17 20:57 Taken CULTURE BLOOD [BC] Stat Lab 02/20/17 20:58 Ordered CULTURE BLOOD [BC] Stat Lab 02/20/17 21:40 Received CULTURE SPUTUM + SMEAR [RM] Stat Lab 02/20/17 22:07 Uncollected CULTURE URINE [RM] Stat Lab 02/20/17 22:07 Uncollected UA W/MICROSCOPIC [URIN] Stat Lab 02/20/17 21:27 Uncollected Albuterol [Proventil Neb Soln] Med 02/20/17 22:15 Ordered 2.5 mg INH QID PRN Cholecalciferol (Vitamin D3) [Vitamin D3] Med 02/21/17 09:00 Ordered 1,000 units PO DAILY Cholestyramine/Sucrose [Cholestyramine Packet] Med 02/20/17 22:15 Ordered 4 gm PO DAILY PRN Citalopram Hydrobromide [Celexa] Med 02/21/17 09:00 Ordered 40 mg PO DAILY Cyanocobalamin (Vitamin B12) [Vitamin B12] Med 02/21/17 09:00 Ordered 500 mcg PO DAILY Ferrous Sulfate Med 02/21/17 09:00 Ordered 325 mg PO DAILY Fluticasone/Vilanterol [Breo Ellipta 200-25 MCG Med 02/21/17 09:00 Ordered Inhalation Kit] 1 puff IH DAILY LORazepam [LORazepam] Med 02/20/17 22:15 Ordered 1 mg PO Q6HR PRN Methocarbamol [Robaxin] Med 02/20/17 22:15 Ordered 500 mg PO TID PRN Ondansetron Med 02/20/17 22:15 Ordered 8 mg PO Q6H PRN hydrOXYzine HCl [Atarax] Med 02/20/17 22:15 Ordered 25 mg PO Q6H PRN Blood Culture x2 Reflex Set [OM.PC] Stat Oth 02/20/17 20:57 Ordered Medication Orders Albuterol (Proventil Neb Soln) 2.5 mg INH QID PRN PRN Reason: Dyspnea Cholecalciferol (Vitamin D3) 1,000 units PO DAILY MIKIE Cholestyramine Resin (Cholestyramine Packet) 4 gm PO DAILY PRN PRN Reason: Diarrhea Cyanocobalamin (Vitamin B12) 500 mcg PO DAILY MIKIE Ferrous Sulfate (Ferrous Sulfate) 325 mg PO DAILY MIKIE Hydroxyzine HCl (Atarax) 25 mg PO Q6H PRN PRN Reason: Itching Methocarbamol (Robaxin) 500 mg PO TID PRN PRN Reason: muscle spasms Non-Formulary Medication (Citalopram Hydrobromide [Celexa]) 40 mg PO DAILY MIKIE Non-Formulary Medication (Lorazepam [Lorazepam]) 1 mg PO Q6HR PRN PRN Reason: Anxiety Non-Formulary Medication (Ondansetron) 8 mg PO Q6H PRN PRN Reason: Nausea Labs: Laboratory Tests 02/20/17 02/20/17 02/20/17 Range/Units 21:40 21:40 21:40 WBC 2.0 L (5.0-10.0) 10^3/uL RBC 2.78 L (3.80-5.50) 10^6/uL Hgb 8.0 L (12.0-16.0) g/dL Hct 24.6 L (37.0-47.0) % MCV 88.3 (82.0-92.0) fL MCH 28.6 (27.0-31.0) pg MCHC 32.4 (32.0-36.0) g/dL RDW 16.8 H (11.5-14.5) % Plt Count 11 L* (150-300) 10^3/uL MPV Not Reportable Neut % (Auto) 42.9 L (50.0-70.0) % Lymph % (Auto) 49.7 H (20.0-40.0) % [place] % (Auto) 5.8 (2.0-8.0) % Eos % (Auto) 0.5 L (1.0-3.0) % Baso % (Auto) 1.1 H (0.0-1.0) % Neut # (Auto) 0.9 L (2.5-7.0) 10^3/uL Lymph # (Auto) 1.0 (1.0-4.0) 10^3/uL [place] # (Auto) 0.1 (0.1-0.8) 10^3/uL Eos # (Auto) 0.0 L (0.1-0.3) 10^3/uL Baso # (Auto) 0.0 (0.0-0.1) 10^3/uL Sodium 142 (136-145) mmol/L Potassium 4.2 (3.3-5.3) mmol/L Chloride 107 (98-115) mmol/L Carbon Dioxide 25.0 (21.0-32.0) mmol/L BUN 20 (6-25) mg/dL Creatinine 0.82 (0.51-1.17) mg/dL Est Cr Clr Drug Dosing 59.76 mL/min Estimated GFR (MDRD) > 60 mL/min Glucose 109 (70-110) mg/dL Lactic Acid 1.0 (0.4-2.0) mmol/L Calcium 8.8 (8.7-10.3) mg/dL Meds: Medications Generic Name Dose Route Start Last Admin Trade Name Freq PRN Reason Stop Dose Admin Albuterol 2.5 mg 02/20/17 22:15 Proventil Neb Soln INH QID PRN Dyspnea Cholecalciferol 1,000 units 02/21/17 09:00 Vitamin D3 PO DAILY MIKIE Cholestyramine Resin 4 gm 02/20/17 22:15 Cholestyramine Packet PO DAILY PRN Diarrhea Cyanocobalamin 500 mcg 02/21/17 09:00 Vitamin B12 PO DAILY MIKIE Ferrous Sulfate 325 mg 02/21/17 09:00 Ferrous Sulfate PO DAILY MIKIE Hydroxyzine HCl 25 mg 02/20/17 22:15 Atarax PO Q6H PRN Itching Methocarbamol 500 mg 02/20/17 22:15 Robaxin PO TID PRN muscle spasms Non-Formulary Medication 40 mg 02/21/17 09:00 Citalopram Hydrobromide [Celexa] PO DAILY MIKIE Non-Formulary Medication 1 mg 02/20/17 22:15 Lorazepam [Lorazepam] PO Q6HR PRN Anxiety Non-Formulary Medication 8 mg 02/20/17 22:15 Ondansetron PO Q6H PRN Nausea - Re-Assessments/Exams Free Text/Narrative Re-Assessment/Exam: 02/20/17 22:43 Neutropenic fever, will admit. Hg is 8.0 and platelets 11 so won't transfuse tonight. ANC is 0.9 which was 0.6 two days ago. Discussed findings with Dr. Evelin Simon and the on-call oncologist at [facility] for the best plan for treatment. Wrapped ELISHA on wrist with hematoma. Patient remained stable throughout ER course and is admitted for treatment. Departure - Departure Time of Disposition: 22:04 Disposition: Admitted As Inpatient 67 Condition: Fair Clinical Impression: Neutropenic fever, Thrombocytopenia, Myelodysplastic syndrome CAP (community acquired pneumonia) Qualifiers: Laterality: right - Discharge Information Forms: ED Department Discharge - My Orders Last 24 Hours: My Active Orders 02/20/17 20:57 Chest 2V [CR] Stat Blood Culture x2 Reflex Set [OM.PC] Stat 02/20/17 20:58 CULTURE BLOOD [BC] Stat 02/20/17 21:27 UA W/MICROSCOPIC [URIN] Stat 02/20/17 21:40 CULTURE BLOOD [BC] Stat 02/20/17 22:07 CULTURE SPUTUM + SMEAR [RM] Stat CULTURE URINE [RM] Stat 02/20/17 22:10 Patient Status [ADT] Routine 02/20/17 22:12 Patient Status Manage Transfer [TRANSFER] Routine 02/20/17 22:15 Albuterol [Proventil Neb Soln] 2.5 mg INH QID PRN Cholestyramine/Sucrose [Cholestyramine Packet] 4 gm PO DAILY PRN LORazepam [LORazepam] 1 mg PO Q6HR PRN Methocarbamol [Robaxin] 500 mg PO TID PRN Ondansetron 8 mg PO Q6H PRN hydrOXYzine HCl [Atarax] 25 mg PO Q6H PRN 02/21/17 09:00 Cholecalciferol (Vitamin D3) [Vitamin D3] 1,000 units PO DAILY Citalopram Hydrobromide [Celexa] 40 mg PO DAILY Cyanocobalamin (Vitamin B12) [Vitamin B12] 500 mcg PO DAILY Ferrous Sulfate 325 mg PO DAILY Fluticasone/Vilanterol [Breo Ellipta 200-25 MCG Inhalation Kit] 1 puff IH DAILY - Assessment/Plan Last 24 Hours: My Active Orders 02/20/17 20:57 Chest 2V [CR] Stat Blood Culture x2 Reflex Set [OM.PC] Stat 02/20/17 20:58 CULTURE BLOOD [BC] Stat 02/20/17 21:27 UA W/MICROSCOPIC [URIN] Stat 02/20/17 21:40 CULTURE BLOOD [BC] Stat 02/20/17 22:07 CULTURE SPUTUM + SMEAR [RM] Stat CULTURE URINE [RM] Stat 02/20/17 22:10 Patient Status [ADT] Routine 02/20/17 22:12 Patient Status Manage Transfer [TRANSFER] Routine 02/20/17 22:15 Albuterol [Proventil Neb Soln] 2.5 mg INH QID PRN Cholestyramine/Sucrose [Cholestyramine Packet] 4 gm PO DAILY PRN LORazepam [LORazepam] 1 mg PO Q6HR PRN Methocarbamol [Robaxin] 500 mg PO TID PRN Ondansetron 8 mg PO Q6H PRN hydrOXYzine HCl [Atarax] 25 mg PO Q6H PRN 02/21/17 09:00 Cholecalciferol (Vitamin D3) [Vitamin D3] 1,000 units PO DAILY Citalopram Hydrobromide [Celexa] 40 mg PO DAILY Cyanocobalamin (Vitamin B12) [Vitamin B12] 500 mcg PO DAILY Ferrous Sulfate 325 mg PO DAILY Fluticasone/Vilanterol [Breo Ellipta 200-25 MCG Inhalation Kit] 1 puff IH DAILY
[2017-02-20 22:08] LABS: CHLORIDE,CL 107 mmol/L (98-115); SODIUM,NA 142 mmol/L (136-145)
[2017-02-20] MEDS ORDERED: Albuterol 0.083% 2.5 MG/3 ML Neb Soln INH PRN (22:15)
[2017-02-20] MEDS ORDERED: hydrOXYzine HCl 25 MG Tab PO PRN (22:15)
[2017-02-20] MEDS ORDERED: Methocarbamol 500 MG Tab PO PRN (22:15)
[2017-02-20] MEDS ORDERED: Cholestyramine/Sucrose Powder 4 GM Packet PO PRN (22:15)
[2017-02-20] MEDS ORDERED: Non-Formulary Medication 1 Each (Ondansetron 8 MG) PO PRN (22:15)
[2017-02-21] MEDS ORDERED: traZODone 50 MG Tab PO ONE (00:06)
[2017-02-21] MEDS: Cefepime 2 GM in Sodium Chloride 0.9% 50 ML IV SCH ×3 (05:36→22:06)
[2017-02-21 07:46] LABS: CHLORIDE,CL 110 mmol/L (98-115); SODIUM,NA 144 mmol/L (136-145)
[2017-02-21] MEDS: Ferrous Sulfate 325 MG Tab PO SCH (08:44)
[2017-02-21] MEDS: Cholecalciferol (Vitamin D3) 1,000 Unit Tab PO SCH (08:44)
[2017-02-21] MEDS: Cyanocobalamin (Vitamin B12) 500 MCG Tab PO SCH (08:44)
[2017-02-21] MEDS ORDERED: Citalopram 20 MG Tab PO ONE (08:48)
[2017-02-21] MEDS: Fluticasone/Vilanterol 200 MCG/25 MCG Inhalation Powder Kit of 14 IH SCH (08:51)
[2017-02-21] MEDS ORDERED: Non-Formulary Medication 1 Each (Triamcinolone Acetonide [Triamcinolone Acetonide 0.5%] 15 TOP PRN (08:53)
[2017-02-21] MEDS ORDERED: Acetaminophen 325 MG Tab PO ONE (09:00)
[2017-02-21] MEDS ORDERED: Non-Formulary Medication 1 Each (Citalopram Hydrobromide [Celexa] 40 MG) PO SCH (09:00)
[2017-02-21] MEDS ORDERED: diphenhydrAMINE 25 MG Cap PO ONE (09:00)
--- NOTE | 2017-02-21 13:51 | PCM.PN ---
- General Info Date of Service: 02/21/17 Admission Dx/Problem (Free Text): MDS with profound pancytopenia and fever with hematoma of the right wrist. - Review of Systems Systems Review Comment:: Phyllis is seen today on inpatient rounds. She was admitted with neutropenic fever yesterday in the setting of MDS with profound pancytopenia. She sees Dr. Granados at [facility] in [place]. She actually came in due to a right wrist hematoma of unknown origin. She does not recall hitting it. She was incidentally noted to have a fever of 101.2 with an ANC of 0.6 (stable). She was unaware of any fevers at home and has no ill symptoms. Oncology was contacted and they recommend vancomycin and Cefipime, which she is currently on. She is currently receiving PRBC's, 2 units per standing orders from oncology. She is set to get platelets tomorrow, also per oncology outpatient standing orders. She states "I feel pretty good right now". No N/V/D. She was in a week ago with rectal bleeding from a hemorrhoid and also had thrombocytopenia. She was in overnight and has not had recurrence of her rectal bleeding. Her wrist is currently wrapped in an ELISHA wrap due to the swelling from the hematoma. Reportedly the swelling is improving. She has been pancultured, not yet able to leave a sputum sample. Results are pending. - Patient Data Vitals - Most Recent: Last Vital Signs Temp 99.1 F 02/21/17 12:40 Pulse 63 02/21/17 12:40 Resp 18 02/21/17 12:40 BP 92/36 L 02/21/17 12:40 Pulse Ox 94 L 02/21/17 11:00 Weight - Most Recent: 160 lb 9.6 oz I&O - Last 24 Hours: Intake & Output 02/20/17 02/21/17 02/21/17 22:59 06:59 14:59 Intake Total 550 0 Output Total 1300 Balance -750 0 Lab Results Last 24 Hours: Laboratory Results - last 24 hr 02/21/17 02/21/17 02/21/17 Range/Units 07:20 07:20 07:20 WBC 1.2 L* (5.0-10.0) 10^3/uL RBC 2.43 L (3.80-5.50) 10^6/uL Hgb 7.0 L (12.0-16.0) g/dL Hct 21.6 L (37.0-47.0) % MCV 88.1 (82.0-92.0) fL MCH 28.5 (27.0-31.0) pg MCHC 32.4 (32.0-36.0) g/dL RDW 16.7 H (11.5-14.5) % Plt Count 8 L* (150-300) 10^3/uL MPV 6.3 L (7.4-10.4) fL Neut % (Auto) 42.2 L (50.0-70.0) % Lymph % (Auto) 49.6 H (20.0-40.0) % [place] % (Auto) 7.5 (2.0-8.0) % Eos % (Auto) 0.7 L (1.0-3.0) % Baso % (Auto) 0.0 (0.0-1.0) % Neut # (Auto) 0.5 L (2.5-7.0) 10^3/uL Lymph # (Auto) 0.6 L (1.0-4.0) 10^3/uL [place] # (Auto) 0.1 (0.1-0.8) 10^3/uL Eos # (Auto) 0.0 L (0.1-0.3) 10^3/uL Baso # (Auto) 0.0 (0.0-0.1) 10^3/uL Sodium 144 (136-145) mmol/L Potassium 4.4 (3.3-5.3) mmol/L Chloride 110 (98-115) mmol/L Carbon Dioxide 27.0 (21.0-32.0) mmol/L BUN 15 (6-25) mg/dL Creatinine 0.71 (0.51-1.17) mg/dL Est Cr Clr Drug Dosing 69.02 mL/min Estimated GFR (MDRD) > 60 mL/min Glucose 96 (70-110) mg/dL Calcium 8.6 L (8.7-10.3) mg/dL Blood Type O POSITIVE Gel Antibody Screen Negative Crossmatch See Detail Med Orders - Current: Current Medications Albuterol (Proventil Neb Soln) 2.5 mg INH QID PRN PRN Reason: Dyspnea Cholecalciferol (Vitamin D3) 1,000 units PO DAILY [facility] Last Admin: 02/21/17 08:44 Dose: 1,000 units Cholestyramine Resin (Cholestyramine Packet) 4 gm PO DAILY PRN PRN Reason: Diarrhea Cyanocobalamin (Vitamin B12) 500 mcg PO DAILY [facility] Last Admin: 02/21/17 08:44 Dose: 500 mcg Ferrous Sulfate (Ferrous Sulfate) 325 mg PO DAILY [facility] Last Admin: 02/21/17 08:44 Dose: 325 mg Hydroxyzine HCl (Atarax) 25 mg PO Q6H PRN PRN Reason: Itching Cefepime HCl 2 gm/ Sodium (Chloride) 50 mls @ 100 mls/hr IV Q8HR [facility] Last Admin: 02/21/17 05:36 Dose: 100 mls/hr Vancomycin HCl 1 gm/ Sodium (Chloride) 250 mls @ 166.667 mls/hr IV Q12H [facility] Last Admin: 02/21/17 10:10 Dose: 166.667 mls/hr Methocarbamol (Robaxin) 500 mg PO TID PRN PRN Reason: muscle spasms Non-Formulary Medication (Citalopram Hydrobromide [Celexa]) 40 mg PO DAILY [facility] Last Admin: 02/21/17 08:48 Dose: 40 mg Non-Formulary Medication (Lorazepam [Lorazepam]) 1 mg PO Q6HR PRN PRN Reason: Anxiety Non-Formulary Medication (Ondansetron) 8 mg PO Q6H PRN PRN Reason: Nausea Non-Formulary Medication (Triamcinolone Acetonide [Triamcinolone Acetonide 0.5%] ) 15 gm TOP TID PRN PRN Reason: Rash Trazodone HCl (Trazodone) 50 mg PO BEDTIME [facility] Vancomycin HCl (Pharmacy To Dose - Vancomycin) 1 dose .XX ASDIRECTED [facility] Discontinued Medications Acetaminophen (Tylenol) 650 mg PO NOW ONE Stop: 02/21/17 09:01 Last Admin: 02/21/17 08:45 Dose: 650 mg Diphenhydramine HCl (Benadryl) 25 mg PO ONETIME ONE Stop: 02/21/17 09:01 Last Admin: 02/21/17 11:40 Dose: 25 mg Vancomycin HCl 1 gm/ Sodium (Chloride) 250 mls @ 167 mls/hr IV ONETIME ONE Stop: 02/21/17 00:24 Last Admin: 02/20/17 23:40 Dose: 167 mls/hr Trazodone HCl (Trazodone) 50 mg PO ONETIME ONE Stop: 02/21/17 00:07 Last Admin: 02/21/17 00:26 Dose: 50 mg - Exam Quality Assessment: Supplemental Oxygen General: Alert, Oriented, Cooperative, No Acute Distress Lungs: Clear to Auscultation, Decreased Breath Sounds Cardiovascular: Regular Rate, Regular Rhythm, No Murmurs GI/Abdominal Exam: Normal Bowel Sounds Extremities: Other (ELISHA wrap to right wrist.) - Problem List & Annotations (1) MDS (myelodysplastic syndrome) SNOMED Code(s): 650350863 Code(s): D46.9 - MYELODYSPLASTIC SYNDROME, UNSPECIFIED Status: Acute Current Visit: Yes (2) Neutropenic fever SNOMED Code(s): 494030784 Code(s): D70.9 - NEUTROPENIA, UNSPECIFIED; R50.81 - FEVER PRESENTING WITH CONDITIONS CLASSIFIED ELSEWHERE Status: Acute Current Visit: Yes (3) Thrombocytopenia SNOMED Code(s): 108232744 Code(s): D69.6 - THROMBOCYTOPENIA, UNSPECIFIED Status: Acute Current Visit: Yes (4) Anemia SNOMED Code(s): 987565487 Code(s): D64.9 - ANEMIA, UNSPECIFIED Status: Acute Current Visit: No Qualifiers: Anemia type: other cause (5) COPD (chronic obstructive pulmonary disease) SNOMED Code(s): 42243609 Code(s): J44.9 - CHRONIC OBSTRUCTIVE PULMONARY DISEASE, UNSPECIFIED Status : Chronic Current Visit: No - Problem List Review Problem List Initiated/Reviewed/Updated: Yes - My Orders Last 24 Hours: My Active Orders 02/22/17 05:11 BMP [BASIC METABOLIC PANEL,BMP] [CHEM] AM CBC WITH AUTO DIFF [HEME] AM 02/23/17 05:11 BMP [BASIC METABOLIC PANEL,BMP] [CHEM] AM CBC WITH AUTO DIFF [HEME] AM 02/24/17 05:11 BMP [BASIC METABOLIC PANEL,BMP] [CHEM] AM CBC WITH AUTO DIFF [HEME] AM 02/25/17 05:11 BMP [BASIC METABOLIC PANEL,BMP] [CHEM] AM CBC WITH AUTO DIFF [HEME] AM 02/26/17 05:11 BMP [BASIC METABOLIC PANEL,BMP] [CHEM] AM CBC WITH AUTO DIFF [HEME] AM - Assessment Assessment:: Neutropenia fever MDS with profound pancytopenia COPD Right wrist hematoma - Plan Plan:: Neutropenia fever. Continue vancomycin and Cefepime. MDS with profound pancytopenia. PRBC's today, platelets tomorrow. Daily CBC and BMP. COPD. Continue home meds. Right wrist hematoma. Continue with ELISHA wrap. May not be discharged until fever free for 24 hours and cultures negative for 48 hours.
[2017-02-21] MEDS ORDERED: Ondansetron 4 MG Tab.DIS PO PRN (21:49)
[2017-02-21] MEDS ORDERED: LORazepam 0.5 MG Tab PO PRN (22:00)
[2017-02-21] MEDS: traZODone 50 MG Tab PO SCH (22:06)
[2017-02-22] MEDS: Cefepime 2 GM in Sodium Chloride 0.9% 50 ML IV SCH ×3 (05:58→21:07)
--- NOTE | 2017-02-22 08:41 | PCM.PN ---
- General Info Date of Service: 02/22/17 Admission Dx/Problem (Free Text): MDS with profound pancytopenia and fever with hematoma of the right wrist. - Review of Systems Systems Review Comment:: Phyllis is seen today on inpatient rounds. She was admitted on 02/20/17 with neutropenic fever. Blood cultures are negative x 1 day. She was started on Cefepime and Vancomycin. She feels "tired, not like a kind of tired where you aren't getting enough sleep, this is different". She has SOB when she is up and moving around but not at rest. She did have one albuterol neb yesterday and "that really seemed to help". She would be interested in having this scheduled. She has been sleeping well, normal appetite and BM's. She has not been afebrile for nearly 24 hours. She received PRBC's x 2 units on 02/21/17 and is scheduled to get platelets today. She has not had her labs drawn yet this morning as she has a vanco trough due at 10:30 and lab is waiting until that time to draw her labs. She feels the swelling in her wrist is improving. - Patient Data Vitals - Most Recent: Last Vital Signs Temp 97.6 F 02/22/17 06:05 Pulse 67 02/22/17 06:05 Resp 16 02/22/17 06:05 BP 130/68 02/22/17 06:05 Pulse Ox 94 L 02/22/17 06:05 Weight - Most Recent: 160 lb 9.6 oz I&O - Last 24 Hours: Intake & Output 02/21/17 02/22/17 02/22/17 22:59 06:59 14:59 Intake Total 855 710 Output Total 200 2600 Balance 655 -1890 Lab Results Last 24 Hours: Laboratory Results - last 24 hr 02/21/17 Range/Units 07:20 Blood Type O POSITIVE Gel Antibody Screen Negative Crossmatch See Detail Med Orders - Current: Current Medications Albuterol (Proventil Neb Soln) 2.5 mg INH QID PRN PRN Reason: Dyspnea Last Admin: 02/21/17 15:44 Dose: 2.5 mg Albuterol/Ipratropium (Duoneb 3.0-0.5 Mg/3 Ml) 3 ml NEB Q6HRRT [facility] Cholecalciferol (Vitamin D3) 1,000 units PO DAILY [facility] Last Admin: 02/21/17 08:44 Dose: 1,000 units Cholestyramine Resin (Cholestyramine Packet) 4 gm PO DAILY PRN PRN Reason: Diarrhea Citalopram Hydrobromide (Celexa) 40 mg PO DAILY [facility] Cyanocobalamin (Vitamin B12) 500 mcg PO DAILY [facility] Last Admin: 02/21/17 08:44 Dose: 500 mcg Ferrous Sulfate (Ferrous Sulfate) 325 mg PO DAILY [facility] Last Admin: 02/21/17 08:44 Dose: 325 mg Hydroxyzine HCl (Atarax) 25 mg PO Q6H PRN PRN Reason: Itching Cefepime HCl 2 gm/ Sodium (Chloride) 50 mls @ 100 mls/hr IV Q8HR [facility] Last Admin: 02/22/17 05:58 Dose: 100 mls/hr Vancomycin HCl 1 gm/ Sodium (Chloride) 270 mls @ 180 mls/hr IV Q12H [facility] Last Admin: 02/21/17 23:01 Dose: 180 mls/hr Lorazepam (Ativan) 1 mg PO Q6HR PRN PRN Reason: Anxiety Methocarbamol (Robaxin) 500 mg PO TID PRN PRN Reason: muscle spasms Non-Formulary Medication (Triamcinolone Acetonide [Triamcinolone Acetonide 0.5%] ) 15 gm TOP TID PRN PRN Reason: Rash Ondansetron HCl (Zofran Odt) 8 mg PO Q6H PRN PRN Reason: Nausea Trazodone HCl (Trazodone) 50 mg PO BEDTIME [facility] Last Admin: 02/21/17 22:06 Dose: 50 mg Vancomycin HCl (Pharmacy To Dose - Vancomycin) 1 dose .XX ASDIRECTED [facility] Discontinued Medications Acetaminophen (Tylenol) 650 mg PO NOW ONE Stop: 02/21/17 09:01 Last Admin: 02/21/17 08:45 Dose: 650 mg Citalopram Hydrobromide (Celexa) 40 mg PO .STK-MED ONE Stop: 02/21/17 08:49 Diphenhydramine HCl (Benadryl) 25 mg PO ONETIME ONE Stop: 02/21/17 09:01 Last Admin: 02/21/17 11:40 Dose: 25 mg Vancomycin HCl 1 gm/ Sodium (Chloride) 250 mls @ 167 mls/hr IV ONETIME ONE Stop: 02/21/17 00:24 Last Admin: 02/20/17 23:40 Dose: 167 mls/hr Vancomycin HCl 1 gm/ Sodium (Chloride) 250 mls @ 166.667 mls/hr IV Q12H [facility] Last Admin: 02/21/17 10:10 Dose: 166.667 mls/hr Vancomycin HCl 1 gm/ Sodium (Chloride) 270 mls @ 180 mls/hr IV Q12H [facility] Last Admin: 02/21/17 22:14 Dose: Not Given Non-Formulary Medication (Citalopram Hydrobromide [Celexa]) 40 mg PO DAILY [facility] Last Admin: 02/21/17 08:48 Dose: 40 mg Non-Formulary Medication (Lorazepam [Lorazepam]) 1 mg PO Q6HR PRN PRN Reason: Anxiety Non-Formulary Medication (Ondansetron) 8 mg PO Q6H PRN PRN Reason: Nausea Trazodone HCl (Trazodone) 50 mg PO ONETIME ONE Stop: 02/21/17 00:07 Last Admin: 02/21/17 00:26 Dose: 50 mg - Exam Quality Assessment: Supplemental Oxygen General: Alert, Oriented, Cooperative, No Acute Distress Lungs: Decreased Breath Sounds, Wheezing Cardiovascular: Regular Rate, Regular Rhythm, No Murmurs GI/Abdominal Exam: Normal Bowel Sounds - Problem List & Annotations (1) MDS (myelodysplastic syndrome) SNOMED Code(s): 769585483 Code(s): D46.9 - MYELODYSPLASTIC SYNDROME, UNSPECIFIED Status: Acute Current Visit: Yes (2) Neutropenic fever SNOMED Code(s): 016869309 Code(s): D70.9 - NEUTROPENIA, UNSPECIFIED; R50.81 - FEVER PRESENTING WITH CONDITIONS CLASSIFIED ELSEWHERE Status: Acute Current Visit: Yes (3) Thrombocytopenia SNOMED Code(s): 513631368 Code(s): D69.6 - THROMBOCYTOPENIA, UNSPECIFIED Status: Acute Current Visit: Yes (4) Anemia SNOMED Code(s): 976163347 Code(s): D64.9 - ANEMIA, UNSPECIFIED Status: Acute Current Visit: No Qualifiers: Anemia type: other cause (5) COPD (chronic obstructive pulmonary disease) SNOMED Code(s): 57243142 Code(s): J44.9 - CHRONIC OBSTRUCTIVE PULMONARY DISEASE, UNSPECIFIED Status : Chronic Current Visit: No - Problem List Review Problem List Initiated/Reviewed/Updated: Yes - My Orders Last 24 Hours: My Active Orders 02/22/17 05:11 BMP [BASIC METABOLIC PANEL,BMP] [CHEM] AM CBC WITH AUTO DIFF [HEME] AM 02/22/17 08:36 RT Aerosol Therapy [RC] ASDIRECTED 02/22/17 11:00 Albuterol/Ipratropium [DuoNeb 3.0-0.5 MG/3 ML] 3 ml NEB Q6HRRT 02/23/17 05:11 BMP [BASIC METABOLIC PANEL,BMP] [CHEM] AM CBC WITH AUTO DIFF [HEME] AM 02/24/17 05:11 BMP [BASIC METABOLIC PANEL,BMP] [CHEM] AM CBC WITH AUTO DIFF [HEME] AM 02/25/17 05:11 BMP [BASIC METABOLIC PANEL,BMP] [CHEM] AM CBC WITH AUTO DIFF [HEME] AM 02/26/17 05:11 BMP [BASIC METABOLIC PANEL,BMP] [CHEM] AM CBC WITH AUTO DIFF [HEME] AM - Assessment Assessment:: Neutropenia fever MDS with profound pancytopenia COPD Right wrist hematoma - Plan Plan:: Neutropenia fever. Continue vancomycin and Cefepime. MDS with profound pancytopenia. Platelets will be administered today. Daily CBC and BMP. COPD. Continue home meds. Will add scheduled duonebs q 6 hours. Right wrist hematoma. Continue with ELISHA wrap. May not be discharged until fever free for 24 hours and cultures negative for 48 hours.
[2017-02-22] MEDS: Citalopram 20 MG Tab PO SCH (09:04)
[2017-02-22] MEDS: Fluticasone/Vilanterol 200 MCG/25 MCG Inhalation Powder Kit of 14 IH SCH (09:05)
[2017-02-22] MEDS: Cyanocobalamin (Vitamin B12) 500 MCG Tab PO SCH (09:05)
[2017-02-22] MEDS: Cholecalciferol (Vitamin D3) 1,000 Unit Tab PO SCH (09:05)
[2017-02-22] MEDS: Ferrous Sulfate 325 MG Tab PO SCH (09:05)
[2017-02-22] MEDS: FLUTICASONE INH SCH (10:08)
[2017-02-22] MEDS: VILANTEROL INH SCH (10:08)
[2017-02-22] MEDS: Albuterol/Ipratropium 3.0-0.5 MG/3 ML Neb Soln NEB SCH ×3 (10:14→21:59)
[2017-02-22 11:08] LABS: CHLORIDE,CL 108 mmol/L (98-115); SODIUM,NA 144 mmol/L (136-145)
[2017-02-22] MEDS ORDERED: Magnesium Hydroxide 400 MG/5 ML Susp 30 ML Cup PO PRN (13:37)
[2017-02-22] MEDS: traZODone 50 MG Tab PO SCH (21:59)
[2017-02-23] MEDS: Albuterol/Ipratropium 3.0-0.5 MG/3 ML Neb Soln NEB SCH ×4 (06:00→22:10)
[2017-02-23] MEDS: Cefepime 2 GM in Sodium Chloride 0.9% 50 ML IV SCH ×3 (06:10→21:21)
[2017-02-23] MEDS: VILANTEROL INH SCH (06:20)
[2017-02-23] MEDS: FLUTICASONE INH SCH (06:20)
[2017-02-23 08:12] LABS: CHLORIDE,CL 107 mmol/L (98-115); SODIUM,NA 141 mmol/L (136-145)
[2017-02-23] MEDS: Ferrous Sulfate 325 MG Tab PO SCH (08:14)
[2017-02-23] MEDS: Cyanocobalamin (Vitamin B12) 500 MCG Tab PO SCH (08:14)
[2017-02-23] MEDS: Citalopram 20 MG Tab PO SCH (08:14)
[2017-02-23] MEDS: Cholecalciferol (Vitamin D3) 1,000 Unit Tab PO SCH (08:15)
--- NOTE | 2017-02-23 08:58 | PCM.PN ---
- General Info Date of Service: 02/23/17 Admission Dx/Problem (Free Text): MDS with profound pancytopenia and fever with hematoma of the right wrist. - Review of Systems Systems Review Comment:: Phyllis is seen today on inpatient rounds. "I still feel pretty weak". She received PRBC's x 2 units on 02/21 and platelets on 02/22. Platelets and Hgb are better (15 and 10.2 respectively). She has been afebrile for nearly 48 hours. She is receiving vancomycin and Cefepime for neutropenic fever. Blood cultures are negative x 2 days, urine culture is showing mixed bry and sputum culture is pending. Appetite has been OK and she has been having normal BM's. SOB is at baseline. No ST. - Patient Data Vitals - Most Recent: Last Vital Signs Temp 97.3 F 02/23/17 06:41 Pulse 62 02/23/17 06:41 Resp 18 02/23/17 06:41 BP 116/58 L 02/23/17 06:41 Pulse Ox 95 02/23/17 06:41 Weight - Most Recent: 160 lb 9.6 oz I&O - Last 24 Hours: Intake & Output 02/22/17 02/23/17 02/23/17 22:59 06:59 14:59 Intake Total 810 335 Output Total 725 1500 Balance 85 -1165 Lab Results Last 24 Hours: Laboratory Results - last 24 hr 02/21/17 02/22/17 02/22/17 Range/Units 07:20 10:35 10:35 WBC 1.9 L* (5.0-10.0) 10^3/uL RBC 3.31 L (3.80-5.50) 10^6/uL Hgb 9.8 L (12.0-16.0) g/dL Hct 29.6 L (37.0-47.0) % MCV 89.5 (82.0-92.0) fL MCH 29.5 (27.0-31.0) pg MCHC 33.0 (32.0-36.0) g/dL RDW 16.0 H (11.5-14.5) % Plt Count 8 L* (150-300) 10^3/uL MPV 5.4 L (7.4-10.4) fL Neut % (Auto) 45.5 L (50.0-70.0) % Lymph % (Auto) 44.3 H (20.0-40.0) % [place] % (Auto) 7.8 (2.0-8.0) % Eos % (Auto) 0.4 L (1.0-3.0) % Baso % (Auto) 2.0 H (0.0-1.0) % Neut # (Auto) 1.0 L (2.5-7.0) 10^3/uL Lymph # (Auto) 0.8 L (1.0-4.0) 10^3/uL [place] # (Auto) 0.1 (0.1-0.8) 10^3/uL Eos # (Auto) 0.0 L (0.1-0.3) 10^3/uL Baso # (Auto) 0.0 (0.0-0.1) 10^3/uL Add Manual Diff Sodium (136-145) mmol/L Potassium (3.3-5.3) mmol/L Chloride (98-115) mmol/L Carbon Dioxide (21.0-32.0) mmol/L BUN (6-25) mg/dL Creatinine (0.51-1.17) mg/dL Est Cr Clr Drug Dosing mL/min Estimated GFR (MDRD) mL/min Glucose (70-110) mg/dL Calcium (8.7-10.3) mg/dL Vancomycin Trough 10.5 (10-20) ug/mL Crossmatch See Detail 02/22/17 02/23/17 02/23/17 Range/Units 10:35 07:30 07:30 WBC 1.6 L* (5.0-10.0) 10^3/uL RBC 3.49 L (3.80-5.50) 10^6/uL Hgb 10.2 L (12.0-16.0) g/dL Hct 31.3 L (37.0-47.0) % MCV 89.7 (82.0-92.0) fL MCH 29.2 (27.0-31.0) pg MCHC 32.5 (32.0-36.0) g/dL RDW 16.0 H (11.5-14.5) % Plt Count 15 L* (150-300) 10^3/uL MPV 8.6 (7.4-10.4) fL Neut % (Auto) (50.0-70.0) % Lymph % (Auto) (20.0-40.0) % [place] % (Auto) (2.0-8.0) % Eos % (Auto) (1.0-3.0) % Baso % (Auto) (0.0-1.0) % Neut # (Auto) (2.5-7.0) 10^3/uL Lymph # (Auto) (1.0-4.0) 10^3/uL [place] # (Auto) (0.1-0.8) 10^3/uL Eos # (Auto) (0.1-0.3) 10^3/uL Baso # (Auto) (0.0-0.1) 10^3/uL Add Manual Diff Yes Sodium 144 141 (136-145) mmol/L Potassium 4.7 4.6 (3.3-5.3) mmol/L Chloride 108 107 (98-115) mmol/L Carbon Dioxide 29.1 26.5 (21.0-32.0) mmol/L BUN 17 16 (6-25) mg/dL Creatinine 0.67 0.68 (0.51-1.17) mg/dL Est Cr Clr Drug Dosing 73.14 72.07 mL/min Estimated GFR (MDRD) > 60 > 60 mL/min Glucose 96 114 H (70-110) mg/dL Calcium 8.6 L 8.9 (8.7-10.3) mg/dL Vancomycin Trough (10-20) ug/mL Crossmatch Manuel Results Last 24 Hours: Microbiology 02/20/17 23:05 Urine Culture - Preliminary Urine, Voided MIXED POSITIVE BRY DAY 1 Med Orders - Current: Current Medications Albuterol (Proventil Neb Soln) 2.5 mg INH QID PRN PRN Reason: Dyspnea Last Admin: 02/21/17 15:44 Dose: 2.5 mg Albuterol/Ipratropium (Duoneb 3.0-0.5 Mg/3 Ml) 3 ml NEB Q6HRRT [facility] Last Admin: 02/23/17 06:00 Dose: 3 ml Cholecalciferol (Vitamin D3) 1,000 units PO DAILY [facility] Last Admin: 02/23/17 08:15 Dose: 1,000 units Cholestyramine Resin (Cholestyramine Packet) 4 gm PO DAILY PRN PRN Reason: Diarrhea Citalopram Hydrobromide (Celexa) 40 mg PO DAILY [facility] Last Admin: 02/23/17 08:14 Dose: 40 mg Cyanocobalamin (Vitamin B12) 500 mcg PO DAILY [facility] Last Admin: 02/23/17 08:14 Dose: 500 mcg Ferrous Sulfate (Ferrous Sulfate) 325 mg PO DAILY [facility] Last Admin: 02/23/17 08:14 Dose: 325 mg Hydroxyzine HCl (Atarax) 25 mg PO Q6H PRN PRN Reason: Itching Cefepime HCl 2 gm/ Sodium (Chloride) 50 mls @ 100 mls/hr IV Q8HR [facility] Last Admin: 02/23/17 06:10 Dose: 100 mls/hr Vancomycin HCl 1 gm/ Sodium (Chloride) 270 mls @ 180 mls/hr IV Q12H [facility] Last Admin: 02/22/17 22:02 Dose: 180 mls/hr Lorazepam (Ativan) 1 mg PO Q6HR PRN PRN Reason: Anxiety Magnesium Hydroxide (Milk Of Magnesia) 30 ml PO DAILY PRN PRN Reason: Constipation Methocarbamol (Robaxin) 500 mg PO TID PRN PRN Reason: muscle spasms Non-Formulary Medication (Triamcinolone Acetonide [Triamcinolone Acetonide 0.5%] ) 15 gm TOP TID PRN PRN Reason: Rash Ondansetron HCl (Zofran Odt) 8 mg PO Q6H PRN PRN Reason: Nausea Ptom Fluticasone /Vilanterol (Bre0 Ellipta) 200 Mcg/25 Mcg Inhaler 1 each INH DAILY@0700 [facility] Last Admin: 02/23/17 06:20 Dose: 1 each Trazodone HCl (Trazodone) 50 mg PO BEDTIME [facility] Last Admin: 02/22/17 21:59 Dose: 50 mg Vancomycin HCl (Pharmacy To Dose - Vancomycin) 1 dose .XX ASDIRECTED [facility] Discontinued Medications Acetaminophen (Tylenol) 650 mg PO NOW ONE Stop: 02/21/17 09:01 Last Admin: 02/21/17 08:45 Dose: 650 mg Citalopram Hydrobromide (Celexa) 40 mg PO .STK-MED ONE Stop: 02/21/17 08:49 Diphenhydramine HCl (Benadryl) 25 mg PO ONETIME ONE Stop: 02/21/17 09:01 Last Admin: 02/21/17 11:40 Dose: 25 mg Vancomycin HCl 1 gm/ Sodium (Chloride) 250 mls @ 167 mls/hr IV ONETIME ONE Stop: 02/21/17 00:24 Last Admin: 02/20/17 23:40 Dose: 167 mls/hr Vancomycin HCl 1 gm/ Sodium (Chloride) 250 mls @ 166.667 mls/hr IV Q12H [facility] Last Admin: 02/21/17 10:10 Dose: 166.667 mls/hr Vancomycin HCl 1 gm/ Sodium (Chloride) 270 mls @ 180 mls/hr IV Q12H [facility] Last Admin: 02/21/17 22:14 Dose: Not Given Non-Formulary Medication (Citalopram Hydrobromide [Celexa]) 40 mg PO DAILY [facility] Last Admin: 02/21/17 08:48 Dose: 40 mg Non-Formulary Medication (Lorazepam [Lorazepam]) 1 mg PO Q6HR PRN PRN Reason: Anxiety Non-Formulary Medication (Ondansetron) 8 mg PO Q6H PRN PRN Reason: Nausea Ptom Fluticasone /Vilanterol (Bre0 Ellipta) 200 Mcg/25 Mcg Inhaler 1 each INH DAILY [facility] Trazodone HCl (Trazodone) 50 mg PO ONETIME ONE Stop: 02/21/17 00:07 Last Admin: 02/21/17 00:26 Dose: 50 mg - Exam Quality Assessment: Supplemental Oxygen General: Alert, Oriented, Cooperative, No Acute Distress Lungs: Decreased Breath Sounds (Wheezing is absent today) Cardiovascular: Regular Rate, Regular Rhythm, Murmurs (2/6 systolic murmur heard best at the RUSB.) GI/Abdominal Exam: Normal Bowel Sounds Extremities: No Pedal Edema - Problem List & Annotations (1) MDS (myelodysplastic syndrome) SNOMED Code(s): 182989103 Code(s): D46.9 - MYELODYSPLASTIC SYNDROME, UNSPECIFIED Status: Acute Current Visit: Yes (2) Neutropenic fever SNOMED Code(s): 270472123 Code(s): D70.9 - NEUTROPENIA, UNSPECIFIED; R50.81 - FEVER PRESENTING WITH CONDITIONS CLASSIFIED ELSEWHERE Status: Acute Current Visit: Yes (3) Thrombocytopenia SNOMED Code(s): 240911574 Code(s): D69.6 - THROMBOCYTOPENIA, UNSPECIFIED Status: Acute Current Visit: Yes (4) Anemia SNOMED Code(s): 587738934 Code(s): D64.9 - ANEMIA, UNSPECIFIED Status: Acute Current Visit: No Qualifiers: Anemia type: other cause (5) COPD (chronic obstructive pulmonary disease) SNOMED Code(s): 65732546 Code(s): J44.9 - CHRONIC OBSTRUCTIVE PULMONARY DISEASE, UNSPECIFIED Status : Chronic Current Visit: No - Problem List Review Problem List Initiated/Reviewed/Updated: Yes - My Orders Last 24 Hours: My Active Orders 02/22/17 08:36 RT Aerosol Therapy [RC] ASDIRECTED 02/22/17 08:41 Resuscitation Status Routine 02/22/17 11:00 Albuterol/Ipratropium [DuoNeb 3.0-0.5 MG/3 ML] 3 ml NEB Q6HRRT 02/22/17 12:59 Oxygen Therapy [RC] ASDIRECTED 02/22/17 13:37 Magnesium Hydroxide [Milk of Magnesia] 30 ml PO DAILY PRN 02/23/17 07:30 CBC WITH AUTO DIFF [HEME] AM MANUAL DIFFERENTIAL QA/NC [HEME] Routine 02/24/17 05:11 BMP [BASIC METABOLIC PANEL,BMP] [CHEM] AM CBC WITH AUTO DIFF [HEME] AM 02/24/17 10:30 VANCOMYCIN TROUGH [CHEM] Routine 02/25/17 05:11 BMP [BASIC METABOLIC PANEL,BMP] [CHEM] AM CBC WITH AUTO DIFF [HEME] AM 02/26/17 05:11 BMP [BASIC METABOLIC PANEL,BMP] [CHEM] AM CBC WITH AUTO DIFF [HEME] AM - Assessment Assessment:: Neutropenia fever MDS with profound pancytopenia COPD Right wrist hematoma - Plan Plan:: Neutropenia fever. Continue vancomycin and Cefepime. MDS with profound pancytopenia. Hgb and platelets improved today. Daily CBC and BMP. COPD. Continue home meds. Will add scheduled duonebs q 6 hours. Right wrist hematoma. Continue with ELISHA wrap. May not be discharged until fever free for 24 hours and cultures negative for 48 hours. Do not anticipate discharged until sputum culture is back and she is being treated appropriately per culture results and sensitivities. She is ambulatory. Due to risk of bleeding due to low platelets she is not receiving DVT prophylaxis.
[2017-02-23] MEDS ORDERED: VILANTEROL INH SCH (09:00)
[2017-02-23] MEDS ORDERED: FLUTICASONE INH SCH (09:00)
[2017-02-23] MEDS: traZODone 50 MG Tab PO SCH (22:09)
[2017-02-24] MEDS: Albuterol/Ipratropium 3.0-0.5 MG/3 ML Neb Soln NEB SCH ×2 (06:00→11:22)
[2017-02-24] MEDS: Cefepime 2 GM in Sodium Chloride 0.9% 50 ML IV SCH (06:03)
[2017-02-24] MEDS: FLUTICASONE INH SCH (06:24)
[2017-02-24] MEDS: VILANTEROL INH SCH (06:24)
[2017-02-24 06:28] VITALS: BP 128/55
[2017-02-24 07:51] LABS: CHLORIDE,CL 109 mmol/L (98-115); SODIUM,NA 145 mmol/L (136-145)
[2017-02-24] MEDS: Cyanocobalamin (Vitamin B12) 500 MCG Tab PO SCH (08:06)
[2017-02-24] MEDS: Cholecalciferol (Vitamin D3) 1,000 Unit Tab PO SCH (08:06)
[2017-02-24] MEDS: Citalopram 20 MG Tab PO SCH (08:06)
[2017-02-24] MEDS: Ferrous Sulfate 325 MG Tab PO SCH (08:06)
--- NOTE | 2017-02-24 08:55 | PCM.DCSUM1 ---
Discharge Summary - Hospital Course Free Text/Narrative:: Jennifer was admitted on 02/20/17 through the ER for neutropenic fever. Her hospital stay was 02/20/17 - 02/24/17. She was actually seen in the ER for a right wrist hematoma but was noted to have a fever of 101.2. She is neutropenic due to myelodysplastic syndrome. She was unaware of fevers at home. She had a CXR which shows a left lower lobe infiltrate. Her mat repairer /oncologist was contacted and recommended vancomycin daily along with cefepine q 8 hours. She has received this since 02/20/17. She was loera-cultured. Sputum shows normal respiratory bry, urine showed mixed bry and blood cultures have been negative 17. now for 3 days. She has been afebrile for over 48 hours. She received PRBC's, 2 units on 02/21/17 and she received platelets on . At discharge her labs are stable, WBC 1.6 with an ANC of 0.8, platelets 15 and hemoglobin 9.5. Prior to discharge she will receive her vancomycin dose. I did speak to Dr. Granados, her oncologist, and he felt she was safe to discharge to home with levofloxacin to treat for a total of 12 days of antibiotics. She will be discharged home with eight additional days. Her wrist hematoma was treated with an ELISHA wrap and had improved markedly at discharge. No adjustments were made to medications. Her COPD remained stable. I did start scheduled duonebs in the hospital but her nebs can go back to PRN at discharge. She will come in for 3x weekly blood counts. Next draw will be on 02/26/17 with platelet and PRBC transfusions per outpatient parameters. - Discharge Data Discharge Date: 02/24/17 Discharge Disposition: Home, Self-Care 01 Condition: Good - Discharge Diagnosis/Problem(s) (1) MDS (myelodysplastic syndrome) SNOMED Code(s): 743310477 ICD Code: D46.9 - MYELODYSPLASTIC SYNDROME, UNSPECIFIED Status: Acute Current Visit: Yes (2) Neutropenic fever SNOMED Code(s): 131773720 ICD Code: D70.9 - NEUTROPENIA, UNSPECIFIED; R50.81 - FEVER PRESENTING WITH CONDITIONS CLASSIFIED ELSEWHERE Status: Acute Current Visit: Yes (3) Thrombocytopenia SNOMED Code(s): 426658957 ICD Code: D69.6 - THROMBOCYTOPENIA, UNSPECIFIED Status: Acute Current Visit: Yes (4) Anemia SNOMED Code(s): 232183513 ICD Code: D64.9 - ANEMIA, UNSPECIFIED Status: Acute Current Visit: No Qualifiers: Anemia type: other cause (5) COPD (chronic obstructive pulmonary disease) SNOMED Code(s): 30006110 ICD Code: J44.9 - CHRONIC OBSTRUCTIVE PULMONARY DISEASE, UNSPECIFIED Status : Chronic Current Visit: No - Patient Instructions Diet: Regular Diet as Tolerated Activity: As Tolerated Notify Provider of: Fever - Discharge Plan Prescriptions/Med Rec: Levofloxacin [IMW: Levofloxacin] 750 mg PO DAILY #8 tab Home Medications: Home Meds Citalopram Hydrobromide [Celexa] 40 mg PO DAILY 09/08/16 [History] LORazepam 1 mg PO Q6HR PRN 09/08/16 [History] traZODone HCl [Trazodone HCl] 50 - 100 mg PO BEDTIME 09/08/16 [History] Albuterol [Proventil Neb Soln] 2.5 mg INH QID PRN 12/08/16 [History] Ferrous Sulfate 325 mg PO DAILY 12/08/16 [History] Cholecalciferol (Vitamin D3) [Vitamin D3] 1,000 units PO DAILY 12/09/16 [History ] Cyanocobalamin (Vitamin B12) [Vitamin B12] 500 mcg PO DAILY 12/09/16 [History] Methocarbamol [Robaxin] 500 mg PO TID PRN 12/09/16 [History] Turmeric/Turmeric Root Extract [Turmeric 500 mg Capsule] 1 cap PO DAILY [History] hydrOXYzine HCl [Atarax] 25 mg PO Q6H PRN 12/09/16 [History] Fluticasone/Vilanterol [Breo Ellipta 200-25 Mcg INH] 1 puff INH DAILY 12/29/16 [ History] Ondansetron HCl [Ondansetron] 8 mg PO Q6H PRN 02/15/17 [History] Triamcinolone Acetonide [Triamcinolone Acetonide 0.5%] 15 gm TOP TID PRN [History] Levofloxacin [IMW: Levofloxacin] 750 mg PO DAILY #8 tab 02/24/17 [Rx] Forms: ED Department Discharge Referrals: PCP,Unobtain [Ordering Only Provider] - - Discharge Summary/Plan Comment DC Time >30 min.: No - General Info Date of Service: 02/24/17 Admission Dx/Problem (Free Text: MDS with profound pancytopenia and fever with hematoma of the right wrist. - Review of Systems Systems Review Comment: 10 point ROS obtained. All pertinent positives listed in HPI, all other systems negative. She reports she has more energy today. - Patient Data Vitals - Most Recent: Last Vital Signs Temp 97.9 F 02/24/17 06:27 Pulse 60 02/24/17 06:27 Resp 18 02/24/17 06:27 BP 128/55 L 02/24/17 06:27 Pulse Ox 95 02/24/17 06:30 Weight - Most Recent: 160 lb 9.6 oz I&O - Last 24 hours: Intake & Output 02/23/17 02/24/17 02/24/17 22:59 06:59 14:59 Intake Total 260 495 Output Total 300 1000 Balance -40 -505 Lab Results - Last 24 hrs: Laboratory Results - last 24 hr 02/23/17 02/24/17 02/24/17 Range/Units 07:30 07:05 07:05 WBC 1.6 L* 1.6 L* (5.0-10.0) 10^3/uL RBC 3.49 L 3.47 L (3.80-5.50) 10^6/uL Hgb 10.2 L 9.8 L (12.0-16.0) g/dL Hct 31.3 L 31.1 L (37.0-47.0) % MCV 89.7 89.6 (82.0-92.0) fL MCH 29.2 28.3 (27.0-31.0) pg MCHC 32.5 31.5 L (32.0-36.0) g/dL RDW 16.0 H 16.1 H (11.5-14.5) % Plt Count 15 L* 15 L* (150-300) 10^3/uL MPV 8.6 7.0 L (7.4-10.4) fL Neut % (Auto) 47.8 L (50.0-70.0) % Lymph % (Auto) 45.1 H (20.0-40.0) % [place] % (Auto) 5.0 (2.0-8.0) % Eos % (Auto) 0.7 L (1.0-3.0) % Baso % (Auto) 1.4 H (0.0-1.0) % Neut # (Auto) 0.8 L (2.5-7.0) 10^3/uL Lymph # (Auto) 0.7 L (1.0-4.0) 10^3/uL [place] # (Auto) 0.1 (0.1-0.8) 10^3/uL Eos # (Auto) 0.0 L (0.1-0.3) 10^3/uL Baso # (Auto) 0.0 (0.0-0.1) 10^3/uL Add Manual Diff Yes Neutrophils % (Manual) 53 (50-70) % Lymphocytes % (Manual) 45 H (20-40) % Monocytes % (Manual) 2 (2-8) % Eosinophils % (Manual) 0 L (1-3) % Basophils % (Manual) 0 (0-1) % Tear Drop Cells 1+ slight Elliptocytes 1+ slight Schistocytes Occasional Sodium 145 (136-145) mmol/L Potassium 4.9 (3.3-5.3) mmol/L Chloride 109 (98-115) mmol/L Carbon Dioxide 28.5 (21.0-32.0) mmol/L BUN 18 (6-25) mg/dL Creatinine 0.60 (0.51-1.17) mg/dL Est Cr Clr Drug Dosing 81.67 mL/min Estimated GFR (MDRD) > 60 mL/min Glucose 105 (70-110) mg/dL Calcium 8.8 (8.7-10.3) mg/dL NOA Results - Last 24 hrs: Microbiology 02/20/17 23:05 Urine Culture - Final Urine, Voided MIXED POSITIVE BRY DAY 2 02/22/17 08:58 Gram Stain - Final Sputum - Expectorated Sputum Culture - Preliminary REDUCED NORMAL RESPIRATORY BRY Med Orders - Current: Current Medications Albuterol (Proventil Neb Soln) 2.5 mg INH QID PRN PRN Reason: Dyspnea Last Admin: 02/21/17 15:44 Dose: 2.5 mg Albuterol/Ipratropium (Duoneb 3.0-0.5 Mg/3 Ml) 3 ml NEB Q6HRRT [facility] Last Admin: 02/24/17 06:00 Dose: 3 ml Cholecalciferol (Vitamin D3) 1,000 units PO DAILY [facility] Last Admin: 02/24/17 08:06 Dose: 1,000 units Cholestyramine Resin (Cholestyramine Packet) 4 gm PO DAILY PRN PRN Reason: Diarrhea Citalopram Hydrobromide (Celexa) 40 mg PO DAILY [facility] Last Admin: 02/24/17 08:06 Dose: 40 mg Cyanocobalamin (Vitamin B12) 500 mcg PO DAILY [facility] Last Admin: 02/24/17 08:06 Dose: 500 mcg Ferrous Sulfate (Ferrous Sulfate) 325 mg PO DAILY [facility] Last Admin: 02/24/17 08:06 Dose: 325 mg Hydroxyzine HCl (Atarax) 25 mg PO Q6H PRN PRN Reason: Itching Cefepime HCl 2 gm/ Sodium (Chloride) 50 mls @ 100 mls/hr IV Q8HR [facility] Last Admin: 02/24/17 06:03 Dose: 100 mls/hr Vancomycin HCl 1 gm/ Sodium (Chloride) 270 mls @ 180 mls/hr IV Q12H [facility] Last Admin: 02/23/17 22:11 Dose: 180 mls/hr Lorazepam (Ativan) 1 mg PO Q6HR PRN PRN Reason: Anxiety Magnesium Hydroxide (Milk Of Magnesia) 30 ml PO DAILY PRN PRN Reason: Constipation Methocarbamol (Robaxin) 500 mg PO TID PRN PRN Reason: muscle spasms Ondansetron HCl (Zofran Odt) 8 mg PO Q6H PRN PRN Reason: Nausea Ptom Fluticasone /Vilanterol (Bre0 Ellipta) 200 Mcg/25 Mcg Inhaler 1 each INH DAILY@0700 [facility] Last Admin: 02/24/17 06:24 Dose: 1 each Trazodone HCl (Trazodone) 50 mg PO BEDTIME [facility] Last Admin: 02/23/17 22:09 Dose: 50 mg Vancomycin HCl (Pharmacy To Dose - Vancomycin) 1 dose .XX ASDIRECTED [facility] Discontinued Medications Acetaminophen (Tylenol) 650 mg PO NOW ONE Stop: 02/21/17 09:01 Last Admin: 02/21/17 08:45 Dose: 650 mg Citalopram Hydrobromide (Celexa) 40 mg PO .STK-MED ONE Stop: 02/21/17 08:49 Diphenhydramine HCl (Benadryl) 25 mg PO ONETIME ONE Stop: 02/21/17 09:01 Last Admin: 02/21/17 11:40 Dose: 25 mg Vancomycin HCl 1 gm/ Sodium (Chloride) 250 mls @ 167 mls/hr IV ONETIME ONE Stop: 02/21/17 00:24 Last Admin: 02/20/17 23:40 Dose: 167 mls/hr Vancomycin HCl 1 gm/ Sodium (Chloride) 250 mls @ 166.667 mls/hr IV Q12H [facility] Last Admin: 02/21/17 10:10 Dose: 166.667 mls/hr Vancomycin HCl 1 gm/ Sodium (Chloride) 270 mls @ 180 mls/hr IV Q12H [facility] Last Admin: 02/21/17 22:14 Dose: Not Given Non-Formulary Medication (Citalopram Hydrobromide [Celexa]) 40 mg PO DAILY [facility] Last Admin: 02/21/17 08:48 Dose: 40 mg Non-Formulary Medication (Lorazepam [Lorazepam]) 1 mg PO Q6HR PRN PRN Reason: Anxiety Non-Formulary Medication (Ondansetron) 8 mg PO Q6H PRN PRN Reason: Nausea Ptom Fluticasone /Vilanterol (Bre0 Ellipta) 200 Mcg/25 Mcg Inhaler 1 each INH DAILY [facility] Trazodone HCl (Trazodone) 50 mg PO ONETIME ONE Stop: 02/21/17 00:07 Last Admin: 02/21/17 00:26 Dose: 50 mg - Exam Quality Assessment: Reports: Supplemental Oxygen General: Reports: Alert, Oriented, Cooperative, No Acute Distress Lungs: Reports: Normal Respiratory Effort, Decreased Breath Sounds Cardiovascular: Reports: Regular Rate, Regular Rhythm, Murmurs (2/6 systolic murmur) GI/Abdominal Exam: Normal Bowel Sounds Extremities: No Pedal Edema Skin: Reports: Ecchymosis (Right wrist, improving.) *Q Meaningful Use (DIS) - VTE *Q VTE Criteria *Q: - Stroke *Q Stroke Criteria *Q: - AMI *Q AMI Criteria *Q:
== END 2017-02-24 13:14 | disposition home or self-care (01) | DRG 808 ==
LOC: KA.ED 20:30 → KA.MS 22:15
PROVIDERS: ADMIT Internal Medicine; ATTEND Internal Medicine
PROC: 30233N1 Transfusion of Nonautologous Red Blood Cells into Peripheral Vein, Percutaneous Approach (ICD-10-PCS; principal; 2017-02-21)
PROC: 30233R1 Transfusion of Nonautologous Platelets into Peripheral Vein, Percutaneous Approach (ICD-10-PCS; 2017-02-22)
DX: D70.9 Neutropenia, unspecified (principal); D61.818 Other pancytopenia; J18.9 Pneumonia, unspecified organism; R50.81 Fever presenting with conditions classified elsewhere; D46.9 Myelodysplastic syndrome, unspecified; D69.6 Thrombocytopenia, unspecified; D64.9 Anemia, unspecified; S60.211A Contusion of right wrist, initial encounter; X58.XXXA Exposure to other specified factors, initial encounter; Y92.019 Unspecified place in single-family (private) house as the place of occurrence of the external cause; J44.9 Chronic obstructive pulmonary disease, unspecified; I10 Essential (primary) hypertension; F41.8 Other specified anxiety disorders; Z87.891 Personal history of nicotine dependence; Z79.899 Other long term (current) drug therapy; Z88.0 Allergy status to penicillin; Z86.718 Personal history of other venous thrombosis and embolism
CPT/HCPCS: 36415; 36430; 71020; 80048; 80202; 83605; 85025; 86850; 86900; 86901; 86920; 86922; 87040; 87070; 87086; 87205; 94640; 94640-76; 99285; A9270-GY; J0692; J3370; J7050; J7620-GY; P9016; P9037

== ENCOUNTER 2017-03-19 15:50 | Inpatient (IN) | payer MEDICARE ==
[2017-03-19] MEDS ORDERED: Methocarbamol 500 MG Tab PO PRN (16:33)
[2017-03-19] MEDS ORDERED: TRIAMCINOLONE ACETONIDE 0.5% TOP PRN (16:33)
[2017-03-19] MEDS ORDERED: hydrOXYzine HCl 25 MG Tab PO PRN (16:33)
[2017-03-19] MEDS ORDERED: LORazepam 0.5 MG Tab PO PRN (17:30)
[2017-03-19] MEDS ORDERED: Ondansetron 4 MG Tab.DIS PO PRN (17:30)
[2017-03-19] MEDS: Cefepime 1 GM in Sodium Chloride 0.9% 50 ML IV SCH (21:15)
[2017-03-19] MEDS: traZODone 50 MG Tab PO SCH (21:15)
[2017-03-20] MEDS: Cefepime 1 GM in Sodium Chloride 0.9% 50 ML IV SCH ×3 (05:53→21:25)
[2017-03-20] MEDS: Cholecalciferol (Vitamin D3) 1,000 Unit Tab PO SCH (08:03)
[2017-03-20] MEDS: Cyanocobalamin (Vitamin B12) 500 MCG Tab PO SCH (08:03)
[2017-03-20] MEDS: BREO ELLIPTA INH SCH (08:03)
[2017-03-20] MEDS: Ferrous Sulfate 325 MG Tab PO SCH (08:04)
[2017-03-20] MEDS: Citalopram 20 MG Tab PO SCH (08:04)
[2017-03-20 08:25] LABS: CHLORIDE,CL 108 mmol/L (98-115); SODIUM,NA 144 mmol/L (136-145)
[2017-03-20] MEDS ORDERED: TURMERIC 500 MG PO SCH (09:00)
--- NOTE | 2017-03-20 10:46 | PCM.PN ---
- General Info Date of Service: 03/20/17 Admission Dx/Problem (Free Text): Patient is a 71-year-old female who was admitted inpatient to [facility] yesterday. After receiving platelet therapy yesterday morning, patient was found to have fever of 101. She was hospitalized last month with diagnosis of pneumonia and just completed a 10 day course of Levaquin. She admits to intermittent shortness of breath and fatigue. She has a history of COPD and is currently on oxygen therapy, 2 L nasal cannula at night. She is currently on vancomycin and cefepime for suspected left lower lobe pneumonia. Previous WBC was 2.5, hemoglobin 8.5, hematocrit 27.1, and platelet 14. Functional Status: Reports: Pain Controlled - Review of Systems General: Reports: Malaise HEENT: Reports: No Symptoms Pulmonary: Reports: No Symptoms Cardiovascular: Reports: No Symptoms Gastrointestinal: Reports: No Symptoms Genitourinary: Reports: No Symptoms Musculoskeletal: Reports: No Symptoms Skin: Reports: No Symptoms Neurological: Reports: No Symptoms Psychiatric: Reports: No Symptoms - Patient Data Vitals - Most Recent: Last Vital Signs Temp 98.9 F 03/20/17 10:33 Pulse 69 03/20/17 10:33 Resp 18 03/20/17 10:33 BP 106/44 L 03/20/17 10:33 Pulse Ox 98 03/20/17 10:33 Weight - Most Recent: 158 lb 15.253 oz I&O - Last 24 Hours: Intake & Output 03/19/17 03/20/17 03/20/17 22:59 06:59 14:59 Intake Total 450 455 Output Total 400 1200 Balance 50 -745 Lab Results Last 24 Hours: Laboratory Results - last 24 hr 03/20/17 03/20/17 Range/Units 07:10 07:10 WBC 1.9 L* (5.0-10.0) 10^3/uL RBC 2.51 L (3.80-5.50) 10^6/uL Hgb 7.2 L (12.0-16.0) g/dL Hct 22.6 L (37.0-47.0) % MCV 90.1 (82.0-92.0) fL MCH 28.6 (27.0-31.0) pg MCHC 31.7 L (32.0-36.0) g/dL RDW 17.6 H (11.5-14.5) % Plt Count 12 L* (150-300) 10^3/uL MPV 7.7 (7.4-10.4) fL Neut % (Auto) 53.3 (50.0-70.0) % Lymph % (Auto) 38.5 (20.0-40.0) % [place] % (Auto) 6.4 (2.0-8.0) % Eos % (Auto) 0.8 L (1.0-3.0) % Baso % (Auto) 1.0 (0.0-1.0) % Neut # (Auto) 1.1 L (2.5-7.0) 10^3/uL Lymph # (Auto) 0.7 L (1.0-4.0) 10^3/uL [place] # (Auto) 0.1 (0.1-0.8) 10^3/uL Eos # (Auto) 0.0 L (0.1-0.3) 10^3/uL Baso # (Auto) 0.0 (0.0-0.1) 10^3/uL Sodium 144 (136-145) mmol/L Potassium 4.5 (3.3-5.3) mmol/L Chloride 108 (98-115) mmol/L Carbon Dioxide 25.2 (21.0-32.0) mmol/L BUN 13 (6-25) mg/dL Creatinine 0.70 (0.51-1.17) mg/dL Est Cr Clr Drug Dosing 70.01 mL/min Estimated GFR (MDRD) > 60 mL/min Glucose 103 (70-110) mg/dL Calcium 8.3 L (8.7-10.3) mg/dL Total Bilirubin 1.1 H (0.2-1.0) mg/dL AST 6 L (15-37) U/L ALT < 6 L (12-78) U/L Alkaline Phosphatase 44 L (46-116) IU/L Total Protein 6.1 L (6.4-8.2) g/dL Albumin 3.38 (3.00-4.80) g/dL Med Orders - Current: Current Medications Albuterol (Proventil Neb Soln) 2.5 mg INH QID PRN PRN Reason: Dyspnea Cholecalciferol (Vitamin D3) 1,000 units PO DAILY [facility] Last Admin: 03/20/17 08:03 Dose: 1,000 units Citalopram Hydrobromide (Celexa) 40 mg PO DAILY [facility] Last Admin: 03/20/17 08:04 Dose: 40 mg Cyanocobalamin (Vitamin B12) 500 mcg PO DAILY [facility] Last Admin: 03/20/17 08:03 Dose: 500 mcg Ferrous Sulfate (Ferrous Sulfate) 325 mg PO DAILY [facility] Last Admin: 03/20/17 08:04 Dose: 325 mg Hydroxyzine HCl (Atarax) 25 mg PO Q6H PRN PRN Reason: Itching Cefepime HCl 1 gm/ Sodium (Chloride) 60 mls @ 120 mls/hr IV Q8HR [facility] Last Admin: 03/20/17 05:53 Dose: 120 mls/hr Vancomycin HCl 1 gm/ Sodium (Chloride) 270 mls @ 180 mls/hr IV Q12H [facility] Last Admin: 03/20/17 06:39 Dose: 180 mls/hr Lorazepam (Ativan) 1 mg PO Q6H PRN PRN Reason: ANXIETY Methocarbamol (Robaxin) 500 mg PO TID PRN PRN Reason: muscle spasms Ondansetron HCl (Zofran Odt) 8 mg PO Q6H PRN PRN Reason: NAUSEA Ptom Breo Ellipta (Fluticasone /Vilanterol 200 Mcg/25 Mcg) Inhaler 1 each INH DAILY [facility] Last Admin: 03/20/17 08:03 Dose: 1 each Trazodone HCl (Trazodone) 50 - 100 mg PO BEDTIME [facility] Last Admin: 03/19/17 21:15 Dose: 50 mg Vancomycin HCl (Pharmacy To Dose - Vancomycin) 1 dose .XX ASDIRECTED [facility] - Exam General: Alert, Oriented, Cooperative, No Acute Distress HEENT: Mucous Membr. Moist/[place] Neck: Supple Lungs: Clear to Auscultation Cardiovascular: Regular Rate, Regular Rhythm GI/Abdominal Exam: Normal Bowel Sounds, Soft, Non-Tender Back Exam: Normal Inspection. No: CVA Tenderness (L), CVA Tenderness (R) Extremities: Normal Inspection Skin: Warm, Dry, Intact Neurological: No New Focal Deficit Psy/Mental Status: Alert, Normal Affect, Normal Mood - Problem List Review Problem List Initiated/Reviewed/Updated: Yes - Assessment Assessment:: Suspected left lower lobe pneumonia, COPD, myelodysplastic syndrome, anemia, leukopenia, thrombocytopenia - Plan Plan:: Lab work performed this morning indicate a decrease in WBCs to 1.9, hemoglobin 7.2, and hematocrit 22.6. Lab work will be repeated at 1800 today and transfusion decision will be made at that point. Patient is afebrile, nontoxic appearing, in good spirits, and vital signs are stable.
[2017-03-20 18:09] LABS: CHLORIDE,CL 107 mmol/L (98-115); SODIUM,NA 142 mmol/L (136-145)
[2017-03-20] MEDS: traZODone 50 MG Tab PO SCH (21:25)
[2017-03-21] MEDS: Cefepime 1 GM in Sodium Chloride 0.9% 50 ML IV SCH ×3 (05:40→21:59)
--- NOTE | 2017-03-21 08:35 | PCM.PN ---
- General Info Admission Dx/Problem (Free Text): Patient is a 71-year-old female who was admitted inpatient to [facility] yesterday. After receiving platelet therapy yesterday morning, patient was found to have fever of 101. She was hospitalized last month with diagnosis of pneumonia and just completed a 10 day course of Levaquin. She admits to intermittent shortness of breath and fatigue. She has a history of COPD and is currently on oxygen therapy, 2 L nasal cannula at night. She is currently on vancomycin and cefepime for suspected left lower lobe pneumonia. Previous WBC was 2.5, hemoglobin 8.5, hematocrit 27.1, and platelet 14. Subjective Update: Patient states she slept well during the night and feels good this morning. Functional Status: Reports: Pain Controlled - Review of Systems General: Reports: No Symptoms HEENT: Reports: No Symptoms Pulmonary: Reports: No Symptoms Cardiovascular: Reports: No Symptoms Gastrointestinal: Reports: No Symptoms Genitourinary: Reports: No Symptoms Musculoskeletal: Reports: No Symptoms Skin: Reports: No Symptoms Neurological: Reports: No Symptoms Psychiatric: Reports: No Symptoms - Patient Data Vitals - Most Recent: Last Vital Signs Temp 99.2 F 03/21/17 06:21 Pulse 63 03/21/17 06:21 Resp 18 03/21/17 06:21 BP 98/60 03/21/17 06:21 Pulse Ox 98 03/21/17 06:21 Weight - Most Recent: 158 lb 15.253 oz I&O - Last 24 Hours: Intake & Output 03/20/17 03/21/17 03/21/17 22:59 06:59 14:59 Intake Total 1145 115 Output Total 300 500 Balance 845 -385 Lab Results Last 24 Hours: Laboratory Results - last 24 hr 03/20/17 03/20/17 03/20/17 Range/Units 07:10 17:35 17:35 WBC 1.9 L* 2.5 L (5.0-10.0) 10^3/uL RBC 2.51 L 2.72 L (3.80-5.50) 10^6/uL Hgb 7.2 L 7.5 L (12.0-16.0) g/dL Hct 22.6 L 24.2 L (37.0-47.0) % MCV 90.1 89.1 (82.0-92.0) fL MCH 28.6 27.7 (27.0-31.0) pg MCHC 31.7 L 31.1 L (32.0-36.0) g/dL RDW 17.6 H 17.9 H (11.5-14.5) % Plt Count 12 L* 11 L* (150-300) 10^3/uL MPV 7.7 7.8 (7.4-10.4) fL Neut % (Auto) 53.3 54.7 (50.0-70.0) % Lymph % (Auto) 38.5 36.3 (20.0-40.0) % [place] % (Auto) 6.4 6.8 (2.0-8.0) % Eos % (Auto) 0.8 L 0.9 L (1.0-3.0) % Baso % (Auto) 1.0 1.3 H (0.0-1.0) % Neut # (Auto) 1.1 L 1.4 L (2.5-7.0) 10^3/uL Lymph # (Auto) 0.7 L 0.9 L (1.0-4.0) 10^3/uL [place] # (Auto) 0.1 0.2 (0.1-0.8) 10^3/uL Eos # (Auto) 0.0 L 0.0 L (0.1-0.3) 10^3/uL Baso # (Auto) 0.0 0.0 (0.0-0.1) 10^3/uL Sodium 142 (136-145) mmol/L Potassium 4.3 (3.3-5.3) mmol/L Chloride 107 (98-115) mmol/L Carbon Dioxide 26.3 (21.0-32.0) mmol/L BUN 13 (6-25) mg/dL Creatinine 0.79 (0.51-1.17) mg/dL Est Cr Clr Drug Dosing 62.03 mL/min Estimated GFR (MDRD) > 60 mL/min Glucose 104 (70-110) mg/dL Calcium 8.5 L (8.7-10.3) mg/dL Total Bilirubin 0.7 (0.2-1.0) mg/dL AST 5 L (15-37) U/L ALT 8 L (12-78) U/L Alkaline Phosphatase 56 (46-116) IU/L Total Protein 6.4 (6.4-8.2) g/dL Albumin 3.58 (3.00-4.80) g/dL Vancomycin Trough (10-20) ug/mL 03/21/17 03/21/17 Range/Units 06:10 06:10 WBC 1.9 L* (5.0-10.0) 10^3/uL RBC 2.56 L (3.80-5.50) 10^6/uL Hgb 7.2 L (12.0-16.0) g/dL Hct 22.9 L (37.0-47.0) % MCV 89.2 (82.0-92.0) fL MCH 28.1 (27.0-31.0) pg MCHC 31.5 L (32.0-36.0) g/dL RDW 18.3 H (11.5-14.5) % Plt Count 10 L* (150-300) 10^3/uL MPV 10.0 (7.4-10.4) fL Neut % (Auto) 54.8 (50.0-70.0) % Lymph % (Auto) 36.5 (20.0-40.0) % [place] % (Auto) 6.2 (2.0-8.0) % Eos % (Auto) 0.9 L (1.0-3.0) % Baso % (Auto) 1.6 H (0.0-1.0) % Neut # (Auto) 1.1 L (2.5-7.0) 10^3/uL Lymph # (Auto) 0.7 L (1.0-4.0) 10^3/uL [place] # (Auto) 0.1 (0.1-0.8) 10^3/uL Eos # (Auto) 0.0 L (0.1-0.3) 10^3/uL Baso # (Auto) 0.0 (0.0-0.1) 10^3/uL Sodium (136-145) mmol/L Potassium (3.3-5.3) mmol/L Chloride (98-115) mmol/L Carbon Dioxide (21.0-32.0) mmol/L BUN (6-25) mg/dL Creatinine (0.51-1.17) mg/dL Est Cr Clr Drug Dosing mL/min Estimated GFR (MDRD) mL/min Glucose (70-110) mg/dL Calcium (8.7-10.3) mg/dL Total Bilirubin (0.2-1.0) mg/dL AST (15-37) U/L ALT (12-78) U/L Alkaline Phosphatase (46-116) IU/L Total Protein (6.4-8.2) g/dL Albumin (3.00-4.80) g/dL Vancomycin Trough 9.9 L (10-20) ug/mL Manuel Results Last 24 Hours: Microbiology 03/20/17 16:30 Clostridium difficile Toxin A&B (M) - Final Stool / Feces - Stool, Liquid NEGATIVE CDIFF TOXIN 03/19/17 17:10 Aerobic Blood Culture - Preliminary Blood - Venous - Lab Draw NO GROWTH AFTER 1 DAY Anaerobic Blood Culture - Preliminary NO GROWTH AFTER 1 DAY 03/19/17 16:50 Aerobic Blood Culture - Preliminary Blood - Venous NO GROWTH AFTER 1 DAY Anaerobic Blood Culture - Preliminary NO GROWTH AFTER 1 DAY 03/19/17 18:40 Gram Stain - Final Sputum - Expectorated Sputum Culture - Preliminary No Growth 03/19/17 18:40 Urine Culture - Preliminary Urine, Clean Catch No Growth Med Orders - Current: Current Medications Albuterol (Proventil Neb Soln) 2.5 mg INH QID PRN PRN Reason: Dyspnea Albuterol/Ipratropium (Duoneb 3.0-0.5 Mg/3 Ml) 3 ml NEB Q4HRRT PRN PRN Reason: Wheezing Cholecalciferol (Vitamin D3) 1,000 units PO DAILY [facility] Last Admin: 03/20/17 08:03 Dose: 1,000 units Citalopram Hydrobromide (Celexa) 40 mg PO DAILY [facility] Last Admin: 03/20/17 08:04 Dose: 40 mg Cyanocobalamin (Vitamin B12) 500 mcg PO DAILY [facility] Last Admin: 03/20/17 08:03 Dose: 500 mcg Ferrous Sulfate (Ferrous Sulfate) 325 mg PO DAILY [facility] Last Admin: 03/20/17 08:04 Dose: 325 mg Hydroxyzine HCl (Atarax) 25 mg PO Q6H PRN PRN Reason: Itching Cefepime HCl 1 gm/ Sodium (Chloride) 60 mls @ 120 mls/hr IV Q8HR [facility] Last Admin: 03/21/17 05:40 Dose: 120 mls/hr Vancomycin HCl 1 gm/ Sodium (Chloride) 270 mls @ 180 mls/hr IV Q12H [facility] Last Admin: 03/20/17 17:33 Dose: 180 mls/hr Lorazepam (Ativan) 1 mg PO Q6H PRN PRN Reason: ANXIETY Methocarbamol (Robaxin) 500 mg PO TID PRN PRN Reason: muscle spasms Ondansetron HCl (Zofran Odt) 8 mg PO Q6H PRN PRN Reason: NAUSEA Ptom Breo Ellipta (Fluticasone /Vilanterol 200 Mcg/25 Mcg) Inhaler 1 each INH DAILY [facility] Last Admin: 03/20/17 08:03 Dose: 1 each Trazodone HCl (Trazodone) 50 - 100 mg PO BEDTIME [facility] Last Admin: 03/20/17 21:25 Dose: 50 mg Vancomycin HCl (Pharmacy To Dose - Vancomycin) 1 dose .XX ASDIRECTED [facility] Comments:: Decrease in platelets from 14-10, hemoglobin 7.4-7.2, hematocrit maintained. - Exam General: Alert, Oriented, Cooperative, No Acute Distress HEENT: Pupils Equal, Pupils Reactive Lungs: Wheezing (Right upper and lower end expiratory) Cardiovascular: Regular Rate, Regular Rhythm GI/Abdominal Exam: Normal Bowel Sounds, Soft Extremities: Normal Inspection Skin: Warm, Dry, Intact Neurological: No New Focal Deficit Psy/Mental Status: Alert, Normal Affect - Problem List Review Problem List Initiated/Reviewed/Updated: Yes - My Orders Last 24 Hours: My Active Orders 03/21/17 08:05 RT Aerosol Therapy [RC] ASDIRECTED Albuterol/Ipratropium [DuoNeb 3.0-0.5 MG/3 ML] 3 ml NEB Q4HRRT PRN 03/21/17 08:27 Transfuse Platelets [COMM] Urgent - Assessment Assessment:: Suspected left lower lobe pneumonia, COPD, myelodysplastic syndrome, anemia, leukopenia, thrombocytopenia Wheezing noted on right upper and lower lung. Platelets decreased from 11-10, WBC 2.5-1.9, hemoglobin 7.5-7.2, and hematocrit 24.2-22.9. However, patient looks and feels better. - Plan Plan:: Lab work performed this morning indicate a decrease in WBCs to 1.9, hemoglobin 7.2, and hematocrit 22.9, platelets 10. Patient is afebrile, nontoxic appearing, in good spirits, and vital signs are stable. 1 unit platelets will be transfused today.
[2017-03-21] MEDS: Ferrous Sulfate 325 MG Tab PO SCH (08:51)
[2017-03-21] MEDS: Cyanocobalamin (Vitamin B12) 500 MCG Tab PO SCH (08:51)
[2017-03-21] MEDS: Cholecalciferol (Vitamin D3) 1,000 Unit Tab PO SCH (08:51)
[2017-03-21] MEDS: Citalopram 20 MG Tab PO SCH (08:51)
[2017-03-21] MEDS: BREO ELLIPTA INH SCH (08:51)
[2017-03-21] MEDS: Albuterol/Ipratropium 3.0-0.5 MG/3 ML Neb Soln NEB PRN ×2 (08:53→13:35)
[2017-03-21] MEDS: Acetaminophen 325 MG Tab PO PRN ×2 (11:50→15:50)
[2017-03-21] MEDS ORDERED: Sodium Chloride 0.9% 500 ML IV SCH (17:15)
[2017-03-21] MEDS: traZODone 50 MG Tab PO SCH (21:59)
[2017-03-22] MEDS: Cefepime 1 GM in Sodium Chloride 0.9% 50 ML IV SCH ×3 (06:23→21:55)
[2017-03-22] MEDS ORDERED: Sodium Chloride 0.9% 250 ML ONE (06:35)
[2017-03-22] MEDS ORDERED: Sodium Chloride 0.9% 250 ML IV SCH (06:45)
[2017-03-22] MEDS: Albuterol 0.083% 2.5 MG/3 ML Neb Soln INH PRN ×2 (07:23→07:47)
[2017-03-22] MEDS: Citalopram 20 MG Tab PO SCH (08:45)
[2017-03-22] MEDS: Cyanocobalamin (Vitamin B12) 500 MCG Tab PO SCH (08:45)
[2017-03-22] MEDS: Ferrous Sulfate 325 MG Tab PO SCH (08:45)
[2017-03-22] MEDS: BREO ELLIPTA INH SCH (08:45)
[2017-03-22] MEDS: Cholecalciferol (Vitamin D3) 1,000 Unit Tab PO SCH (08:45)
[2017-03-22] MEDS: Albuterol/Ipratropium 3.0-0.5 MG/3 ML Neb Soln NEB PRN (16:16)
--- NOTE | 2017-03-22 16:27 | PCM.PN ---
- General Info Admission Dx/Problem (Free Text): Patient is a 71-year-old female who was admitted inpatient to [facility] yesterday. After receiving platelet therapy yesterday morning, patient was found to have fever of 101. She was hospitalized last month with diagnosis of pneumonia and just completed a 10 day course of Levaquin. She admits to intermittent shortness of breath and fatigue. She has a history of COPD and is currently on oxygen therapy, 2 L nasal cannula at night. She is currently on vancomycin and cefepime for suspected left lower lobe pneumonia. Previous WBC was 2.5, hemoglobin 8.5, hematocrit 27.1, and platelet 14. Subjective Update: Patient denies any complaints, has been afebrile during night, and states she feels better. Functional Status: Reports: Pain Controlled - Review of Systems General: Reports: No Symptoms HEENT: Reports: No Symptoms Pulmonary: Reports: No Symptoms Cardiovascular: Reports: No Symptoms Gastrointestinal: Reports: No Symptoms Genitourinary: Reports: No Symptoms Musculoskeletal: Reports: No Symptoms Skin: Reports: No Symptoms Neurological: Reports: No Symptoms Psychiatric: Reports: No Symptoms - Patient Data Vitals - Most Recent: Last Vital Signs Temp 98.7 F 03/22/17 15:00 Pulse 63 03/22/17 15:00 Resp 16 03/22/17 15:00 BP 116/56 L 03/22/17 15:00 Pulse Ox 95 03/22/17 16:16 Weight - Most Recent: 158 lb 15.253 oz I&O - Last 24 Hours: Intake & Output 03/22/17 03/22/17 03/22/17 06:59 14:59 22:59 Intake Total 300 1625 Output Total 1600 700 Balance -1300 925 Lab Results Last 24 Hours: Laboratory Results - last 24 hr 03/22/17 Range/Units 07:30 WBC 1.6 L* (5.0-10.0) 10^3/uL RBC 2.53 L (3.80-5.50) 10^6/uL Hgb 7.3 L (12.0-16.0) g/dL Hct 22.7 L (37.0-47.0) % MCV 89.7 (82.0-92.0) fL MCH 28.7 (27.0-31.0) pg MCHC 32.0 (32.0-36.0) g/dL RDW 18.3 H (11.5-14.5) % Plt Count 22 L* (150-300) 10^3/uL MPV 9.1 (7.4-10.4) fL Neut % (Auto) 51.1 (50.0-70.0) % Lymph % (Auto) 41.1 H (20.0-40.0) % [place] % (Auto) 5.6 (2.0-8.0) % Eos % (Auto) 0.7 L (1.0-3.0) % Baso % (Auto) 1.5 H (0.0-1.0) % Neut # (Auto) 0.8 L (2.5-7.0) 10^3/uL Lymph # (Auto) 0.7 L (1.0-4.0) 10^3/uL [place] # (Auto) 0.1 (0.1-0.8) 10^3/uL Eos # (Auto) 0.0 L (0.1-0.3) 10^3/uL Baso # (Auto) 0.0 (0.0-0.1) 10^3/uL Manuel Results Last 24 Hours: Microbiology 03/19/17 18:40 Gram Stain - Final Sputum - Expectorated Sputum Culture - Final 03/19/17 17:10 Aerobic Blood Culture - Preliminary Blood - Venous - Lab Draw NO GROWTH AFTER 2 DAYS Anaerobic Blood Culture - Preliminary NO GROWTH AFTER 2 DAYS 03/19/17 16:50 Aerobic Blood Culture - Preliminary Blood - Venous NO GROWTH AFTER 2 DAYS Anaerobic Blood Culture - Preliminary NO GROWTH AFTER 2 DAYS 03/19/17 18:40 Urine Culture - Final Urine, Clean Catch MIXED BARRIE SUGGESTIVE OF CONTAMINATION. Med Orders - Current: Current Medications Acetaminophen (Tylenol) 650 mg PO Q4H PRN PRN Reason: Fever Last Admin: 03/21/17 15:50 Dose: 650 mg Albuterol (Proventil Neb Soln) 2.5 mg INH QID PRN PRN Reason: Dyspnea Last Admin: 03/22/17 07:47 Dose: 2.5 mg Albuterol/Ipratropium (Duoneb 3.0-0.5 Mg/3 Ml) 3 ml NEB Q4HRRT PRN PRN Reason: Wheezing Last Admin: 03/22/17 16:16 Dose: 3 ml Cholecalciferol (Vitamin D3) 1,000 units PO DAILY [facility] Last Admin: 03/22/17 08:45 Dose: 1,000 units Citalopram Hydrobromide (Celexa) 40 mg PO DAILY [facility] Last Admin: 03/22/17 08:45 Dose: 40 mg Cyanocobalamin (Vitamin B12) 500 mcg PO DAILY [facility] Last Admin: 03/22/17 08:45 Dose: 500 mcg Ferrous Sulfate (Ferrous Sulfate) 325 mg PO DAILY [facility] Last Admin: 03/22/17 08:45 Dose: 325 mg Hydroxyzine HCl (Atarax) 25 mg PO Q6H PRN PRN Reason: Itching Cefepime HCl 1 gm/ Sodium (Chloride) 60 mls @ 120 mls/hr IV Q8HR [facility] Last Admin: 03/22/17 13:57 Dose: 120 mls/hr Vancomycin HCl 1 gm/ Sodium (Chloride) 270 mls @ 180 mls/hr IV Q12H [facility] Last Admin: 03/22/17 07:18 Dose: 180 mls/hr Sodium Chloride (Normal Saline) 250 mls @ 25 mls/hr IV ASDIRECTED [facility] Lorazepam (Ativan) 1 mg PO Q6H PRN PRN Reason: ANXIETY Methocarbamol (Robaxin) 500 mg PO TID PRN PRN Reason: muscle spasms Ondansetron HCl (Zofran Odt) 8 mg PO Q6H PRN PRN Reason: NAUSEA Ptom Breo Ellipta (Fluticasone /Vilanterol 200 Mcg/25 Mcg) Inhaler 1 each INH DAILY [facility] Last Admin: 03/22/17 08:45 Dose: 1 each Trazodone HCl (Trazodone) 50 - 100 mg PO BEDTIME [facility] Last Admin: 03/21/17 21:59 Dose: 50 mg Vancomycin HCl (Pharmacy To Dose - Vancomycin) 1 dose .XX ASDIRECTED [facility] Discontinued Medications Sodium Chloride (Normal Saline) 500 mls @ 100 mls/hr IV ASDIRECTED [facility] Last Admin: 03/21/17 17:40 Dose: 100 mls/hr Sodium Chloride (Normal Saline) Confirm Administered Dose 250 mls @ as directed .ROUTE .STK-MED ONE Stop: 03/22/17 06:36 Last Admin: 03/22/17 07:19 Dose: Not Given - Exam General: Alert, Oriented, Cooperative, No Acute Distress Neck: Supple Lungs: Clear to Auscultation, Normal Respiratory Effort Cardiovascular: Regular Rate, Regular Rhythm GI/Abdominal Exam: Normal Bowel Sounds, Soft, Non-Tender Back Exam: Normal Inspection. No: CVA Tenderness (L), CVA Tenderness (R) Extremities: Normal Inspection Skin: Warm, Dry, Intact Neurological: No New Focal Deficit Psy/Mental Status: Alert, Normal Affect, Normal Mood - Problem List Review Problem List Initiated/Reviewed/Updated: Yes - My Orders Last 24 Hours: My Active Orders 03/21/17 17:05 Blood Culture x2 Reflex Set [OM.PC] Stat 03/21/17 18:20 CULTURE BLOOD [BC] Stat 03/21/17 19:20 CULTURE BLOOD [BC] Stat - Assessment Assessment:: Suspected left lower lobe pneumonia, COPD, myelodysplastic syndrome, anemia, leukopenia, thrombocytopenia Episode of fever to 102 following platelet transfusion. Patient was given Tylenol 650 mg and temperature return to normal. Patient afebrile, nontoxic appearing, vital signs stable today. Wheezing on right lung has resolved. Lab values of this a.m., 1.6 down from 1.9, platelets 22, up from 10, hemoglobin 7.3, up from 7.2, hematocrit 22.7, down from 22.9 Patient will be seen by Dr. Ibarra in the a.m. and disposition will be decided at that point. - Plan Plan:: Patient will be seen by Dr. Ibarra tomorrow morning and disposition will be decided upon at that point.
[2017-03-22] MEDS: traZODone 50 MG Tab PO SCH (21:49)
[2017-03-23] MEDS: Cefepime 1 GM in Sodium Chloride 0.9% 50 ML IV SCH ×2 (05:35→14:07)
[2017-03-23] MEDS: Albuterol/Ipratropium 3.0-0.5 MG/3 ML Neb Soln NEB PRN ×2 (06:24→12:55)
[2017-03-23 06:51] VITALS: BP 112/60
[2017-03-23] MEDS: BREO ELLIPTA INH SCH (08:42)
--- NOTE | 2017-03-23 08:49 | PCM.DCSUM1 ---
Discharge Summary - Hospital Course Free Text/Narrative:: Phyllis is a very pleasant 71 yo F with MDS who was admitted from clinic on due to neutropenic fever. She was in getting platelets that day and her temp was noted to be 101. CXR showed possible LLL PNA and she was admitted with vancomycin and cefepime per oncology recommendations. She had done well. She was getting another platelet transfusion on 03/21/17 and she was noted to have a temp of 102.8 when she was assisted through the bag. Repeat blood cultures were done which have been negative for 24 hours. She does have a hx of having positive sputum culture for aspergillus from her previous hospitalization but this is felt to be colonization and not a true pathogen. She has been afebrile for over 24 hours. All cultures are negative to date. She will be discharged home on levofloxacin. She is scheduled to have a bone marrow biopsy tomorrow morning in [place] at [facility]. Phyllis is discharged today, 03/23/17. She states overall she is feeling quite a bit better. She states the duonebs have been working well for her cough and her breathing, much better than the albuterol nebs alone. She will be discharged on those. - Discharge Data Discharge Date: 03/23/17 Discharge Disposition: Home, Self-Care 01 Condition: Good - Discharge Diagnosis/Problem(s) (1) Anemia SNOMED Code(s): 220105031 ICD Code: D64.9 - ANEMIA, UNSPECIFIED Status: Acute Current Visit: No Qualifiers: Anemia type: other cause (2) MDS (myelodysplastic syndrome) SNOMED Code(s): 978875212 ICD Code: D46.9 - MYELODYSPLASTIC SYNDROME, UNSPECIFIED Status: Acute Current Visit: No (3) Neutropenic fever SNOMED Code(s): 246812596 ICD Code: D70.9 - NEUTROPENIA, UNSPECIFIED; R50.81 - FEVER PRESENTING WITH CONDITIONS CLASSIFIED ELSEWHERE Status: Acute Current Visit: No (4) Thrombocytopenia SNOMED Code(s): 346383074 ICD Code: D69.6 - THROMBOCYTOPENIA, UNSPECIFIED Status: Acute Current Visit: No (5) COPD (chronic obstructive pulmonary disease) SNOMED Code(s): 64396503 ICD Code: J44.9 - CHRONIC OBSTRUCTIVE PULMONARY DISEASE, UNSPECIFIED Status : Chronic Current Visit: No - Patient Instructions Diet: Regular Diet as Tolerated Activity: As Tolerated Notify Provider of: Fever - Discharge Plan Home Medications: Home Meds Citalopram Hydrobromide [Celexa] 40 mg PO DAILY 09/08/16 [History] LORazepam 1 mg PO Q6HR PRN 09/08/16 [History] traZODone HCl [Trazodone HCl] 50 - 100 mg PO BEDTIME 09/08/16 [History] Ferrous Sulfate 325 mg PO DAILY 12/08/16 [History] Cholecalciferol (Vitamin D3) [Vitamin D3] 1,000 units PO DAILY 12/09/16 [History ] Cyanocobalamin (Vitamin B12) [Vitamin B12] 500 mcg PO DAILY 12/09/16 [History] Methocarbamol [Robaxin] 500 mg PO TID PRN 12/09/16 [History] Turmeric/Turmeric Root Extract [Turmeric 500 mg Capsule] 1 cap PO DAILY [History] hydrOXYzine HCl [Atarax] 25 mg PO Q6H PRN 12/09/16 [History] Fluticasone/Vilanterol [Breo Ellipta 200-25 Mcg INH] 1 puff INH DAILY 12/29/16 [ History] Ondansetron HCl [Ondansetron] 8 mg PO Q6H PRN 02/15/17 [History] Triamcinolone Acetonide [Triamcinolone Acetonide 0.5%] 15 gm TOP TID PRN [History] Albuterol/Ipratropium [DuoNeb 3.0-0.5 MG/3 ML] 3 ml NEB Q4HRRT PRN neb [Rx] - General Info Date of Service: 03/23/17 Admission Dx/Problem (Free Text: Neutropenic fever, pancytopenia, COPD, MDS. . - Review of Systems Systems Review Comment: 10 point ROS obtained. All pertinent positives listed in the HPI, all other systems negative. - Patient Data Vitals - Most Recent: Last Vital Signs Temp 98.5 F 03/23/17 06:51 Pulse 69 03/23/17 06:51 Resp 20 03/23/17 06:51 BP 112/60 03/23/17 06:51 Pulse Ox 94 L 03/23/17 06:51 Weight - Most Recent: 158 lb 15.253 oz I&O - Last 24 hours: Intake & Output 03/22/17 03/23/17 03/23/17 22:59 06:59 14:59 Intake Total 880 290 Output Total 1400 1500 Balance -520 -1210 NOA Results - Last 24 hrs: Microbiology 03/21/17 19:20 Aerobic Blood Culture - Preliminary Blood - Venous - Lab Draw NO GROWTH AFTER 1 DAY Anaerobic Blood Culture - Preliminary NO GROWTH AFTER 1 DAY 03/21/17 18:20 Aerobic Blood Culture - Preliminary Blood - Venous NO GROWTH AFTER 1 DAY Anaerobic Blood Culture - Preliminary NO GROWTH AFTER 1 DAY 03/19/17 17:10 Aerobic Blood Culture - Preliminary Blood - Venous - Lab Draw NO GROWTH AFTER 3 DAYS Anaerobic Blood Culture - Preliminary NO GROWTH AFTER 3 DAYS 03/19/17 16:50 Aerobic Blood Culture - Preliminary Blood - Venous NO GROWTH AFTER 3 DAYS Anaerobic Blood Culture - Preliminary NO GROWTH AFTER 3 DAYS 03/19/17 18:40 Gram Stain - Final Sputum - Expectorated Sputum Culture - Final Med Orders - Current: Current Medications Acetaminophen (Tylenol) 650 mg PO Q4H PRN PRN Reason: Fever Last Admin: 03/21/17 15:50 Dose: 650 mg Albuterol (Proventil Neb Soln) 2.5 mg INH QID PRN PRN Reason: Dyspnea Last Admin: 03/22/17 07:47 Dose: 2.5 mg Albuterol/Ipratropium (Duoneb 3.0-0.5 Mg/3 Ml) 3 ml NEB Q4HRRT PRN PRN Reason: Wheezing Last Admin: 03/23/17 06:24 Dose: 3 ml Cholecalciferol (Vitamin D3) 1,000 units PO DAILY [facility] Last Admin: 03/22/17 08:45 Dose: 1,000 units Citalopram Hydrobromide (Celexa) 40 mg PO DAILY [facility] Last Admin: 03/22/17 08:45 Dose: 40 mg Cyanocobalamin (Vitamin B12) 500 mcg PO DAILY [facility] Last Admin: 03/22/17 08:45 Dose: 500 mcg Ferrous Sulfate (Ferrous Sulfate) 325 mg PO DAILY [facility] Last Admin: 03/22/17 08:45 Dose: 325 mg Hydroxyzine HCl (Atarax) 25 mg PO Q6H PRN PRN Reason: Itching Cefepime HCl 1 gm/ Sodium (Chloride) 60 mls @ 120 mls/hr IV Q8HR [facility] Last Admin: 03/23/17 05:35 Dose: 120 mls/hr Vancomycin HCl 1 gm/ Sodium (Chloride) 270 mls @ 180 mls/hr IV Q12H [facility] Last Admin: 03/23/17 06:25 Dose: 180 mls/hr Sodium Chloride (Normal Saline) 250 mls @ 25 mls/hr IV ASDIRECTED [facility] Lorazepam (Ativan) 1 mg PO Q6H PRN PRN Reason: ANXIETY Methocarbamol (Robaxin) 500 mg PO TID PRN PRN Reason: muscle spasms Ondansetron HCl (Zofran Odt) 8 mg PO Q6H PRN PRN Reason: NAUSEA Ptom Breo Ellipta (Fluticasone /Vilanterol 200 Mcg/25 Mcg) Inhaler 1 each INH DAILY [facility] Last Admin: 03/23/17 08:42 Dose: 1 each Trazodone HCl (Trazodone) 50 - 100 mg PO BEDTIME [facility] Last Admin: 03/22/17 21:49 Dose: 50 mg Vancomycin HCl (Pharmacy To Dose - Vancomycin) 1 dose .XX ASDIRECTED [facility] Discontinued Medications Sodium Chloride (Normal Saline) 500 mls @ 100 mls/hr IV ASDIRECTED [facility] Last Admin: 03/21/17 17:40 Dose: 100 mls/hr Sodium Chloride (Normal Saline) Confirm Administered Dose 250 mls @ as directed .ROUTE .STK-MED ONE Stop: 03/22/17 06:36 Last Admin: 03/22/17 07:19 Dose: Not Given - Exam General: Reports: Alert, Oriented, Cooperative, No Acute Distress Lungs: Reports: Normal Respiratory Effort, Wheezing (Left upper lobe) Cardiovascular: Reports: Regular Rate, Regular Rhythm, No Murmurs GI/Abdominal Exam: Normal Bowel Sounds *Q Meaningful Use (DIS) - VTE *Q VTE Criteria *Q: - Stroke *Q Stroke Criteria *Q: - AMI *Q AMI Criteria *Q:
[2017-03-23] MEDS: Cholecalciferol (Vitamin D3) 1,000 Unit Tab PO SCH (09:12)
[2017-03-23] MEDS: Cyanocobalamin (Vitamin B12) 500 MCG Tab PO SCH (09:12)
[2017-03-23] MEDS: Citalopram 20 MG Tab PO SCH (09:12)
[2017-03-23] MEDS: Ferrous Sulfate 325 MG Tab PO SCH (09:13)
[2017-03-23 09:38] LABS: CHLORIDE,CL 107 mmol/L (98-115); SODIUM,NA 142 mmol/L (136-145)
== END 2017-03-23 17:10 | disposition home or self-care (01) | DRG 810 ==
LOC: KA.MS 15:54
PROC: 30233R1 Transfusion of Nonautologous Platelets into Peripheral Vein, Percutaneous Approach (ICD-10-PCS; principal; 2017-03-21)
DX: D70.9 Neutropenia, unspecified (principal); D64.9 Anemia, unspecified; D46.9 Myelodysplastic syndrome, unspecified; D69.6 Thrombocytopenia, unspecified; J44.9 Chronic obstructive pulmonary disease, unspecified; Z79.899 Other long term (current) drug therapy
CPT/HCPCS: 36415; 36430; 71020; 80048; 80053; 80202; 85025; 86880; 86900; 86901; 87040; 87070; 87086; 87106; 87205; 87324; 94640; 94640-76; A9270-GY; J0692; J3370; J7040; J7050; J7620-GY; P9034

== ENCOUNTER 2017-04-18 17:36 | Emergency (ER) | payer MEDICARE ==
[2017-04-18 18:06] VITALS: BP 133/49
[2017-04-18] MEDS ORDERED: Ondansetron 4 MG/2 ML SDV IVPUSH ONE (18:31)
--- NOTE | 2017-04-18 18:35 | EDM.PDOC ---
ED HPI GENERAL MEDICAL PROBLEM - General Chief Complaint: Respiratory Problem Stated Complaint: COUGHING UP BLOOD Time Seen by Provider: 04/18/17 18:15 Source of Information: Reports: Patient History Limitations: Reports: No Limitations - History of Present Illness INITIAL COMMENTS - FREE TEXT/NARRATIVE: Patient presents with episode 15 minutes before arrival of coughing up blood. She has had a cough for 4-5 days. She also has nausea and vomited once here in ER. Yesterday while bending over to pull on her boots she pulled a muscle in low left back that is hurting now too. Patient is receiving chemo for MDS. Bilateral Lower Back Pain Score (Numeric/FACES): 10 - Related Data Allergies Allergy/AdvReac Type Severity Reaction Status Date / Time Penicillins Allergy Respiratory Verified 04/18/17 18:16 Distress Home Meds: Home Meds Citalopram Hydrobromide [Celexa] 40 mg PO DAILY 09/08/16 [History] LORazepam 1 mg PO Q6HR PRN 09/08/16 [History] traZODone HCl [Trazodone HCl] 50 - 100 mg PO BEDTIME 09/08/16 [History] Ferrous Sulfate 325 mg PO DAILY 12/08/16 [History] Cholecalciferol (Vitamin D3) [Vitamin D3] 1,000 units PO DAILY 12/09/16 [History ] Cyanocobalamin (Vitamin B12) [Vitamin B12] 500 mcg PO DAILY 12/09/16 [History] Methocarbamol [Robaxin] 500 mg PO TID PRN 12/09/16 [History] Turmeric/Turmeric Root Extract [Turmeric 500 mg Capsule] 1 cap PO DAILY [History] hydrOXYzine HCl [Atarax] 25 mg PO Q6H PRN 12/09/16 [History] Fluticasone/Vilanterol [Breo Ellipta 200-25 Mcg INH] 1 puff INH DAILY 12/29/16 [ History] Ondansetron HCl [Ondansetron] 8 mg PO Q6H PRN 02/15/17 [History] Triamcinolone Acetonide [Triamcinolone Acetonide 0.5%] 15 gm TOP TID PRN [History] Albuterol/Ipratropium [DuoNeb 3.0-0.5 MG/3 ML] 3 ml NEB Q4HRRT PRN neb [Rx] Docusate Sodium [Colace] 100 mg PO BID PRN 04/05/17 [History] Past Medical History HEENT History: Reports: Impaired Vision Cardiovascular History: Reports: Blood Clots/VTE/DVT, Hypertension, SOB on Exertion Respiratory History: Reports: COPD, Other (See Below) Other Respiratory History: Home oxygen prn. 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 Immunologic History: Reports: Immunosuppression Oncologic (Cancer) History: Reports: Other (See Below) Other Oncologic History: MDS Dermatologic History: Reports: Psoriasis - Infectious Disease History Infectious Disease History: Reports: Chicken Pox, Measles, Mumps, Shingles - Past Surgical History HEENT Surgical History: Reports: None Cardiovascular Surgical History: Reports: None Respiratory Surgical History: Reports: None GI Surgical History: Reports: Cholecystectomy, Colonoscopy, EGD Female Surgical History: Reports: Hysterectomy Musculoskeletal Surgical History: Reports: None Oncologic Surgical History: Reports: Bone Marrow Aspiration, Other (See Below) Other Oncologic Surgeries/Procedures: Bone Marrow Biopsy completed first week of March 2017. Dermatological Surgical History: Reports: None Social & Family History - Tobacco Use Smoking Status *Q: Former Smoker Years of Tobacco use: 40 Packs/Tins Daily: 1 Used Tobacco, but Quit: Yes Month Tobacco Last Used: 05/2014 Second Hand Smoke Exposure: No - Caffeine Use Caffeine Use: Reports: Coffee - Alcohol Use Days Per Week of Alcohol Use: 0 Number of Drinks Per Day: 0 Total Drinks Per Week: 0 - Recreational Drug Use Recreational Drug Use: No Drug Use in Last 12 Months: No Recreational Drug Type: Reports: Amphetamines (Speed), Marijuana/Hashish Recreational Drug Use Frequency: Not Used In Over 6 Months ED ROS GENERAL - Review of Systems Review Of Systems: See Below Constitutional: Reports: Weakness. Denies: Fever, Chills HEENT: Denies: Throat Pain, Vision Change Respiratory: Reports: Cough. Denies: Shortness of Breath Cardiovascular: Denies: Chest Pain, Lightheadedness, Syncope GI/Abdominal: Reports: Abdominal Pain (EPIGASTRIC), Constipation, Nausea, Vomiting. Denies: Black Stool, Bloody Stool, Diarrhea : Denies: Discharge, Dysuria, Flank Pain Musculoskeletal: Reports: No Symptoms Skin: Denies: Cyanosis, Jaundice, Mottled, Pallor, Diaphoresis Neurological: Denies: Confusion, Headache, Seizure, Syncope Psychiatric: Denies: Agitation, Anxiety, Confusion ED EXAM, GENERAL - Physical Exam Exam: See Below Exam Limited By: No Limitations General Appearance: Alert, WD/WN, No Apparent Distress Eye Exam: Bilateral Eye: EOMI, Normal Inspection, PERRL Ears: Normal External Exam, Hearing Grossly Normal Nose: Normal Inspection, No Blood Throat/Mouth: Normal Inspection, Normal Lips, Normal Voice, No Airway Compromise Head: Atraumatic, Normocephalic Neck: Normal Inspection, Full Range of Motion Respiratory/Chest: No Respiratory Distress, No Accessory Muscle Use, Wheezing ( right lung), Other (left lung clear]) Cardiovascular: Regular Rate, Rhythm, No Murmur Peripheral Pulses: 2+: Radial (L), Radial (R), Dorsalis Pedis (L), Dorsalis Pedis (R) GI/Abdominal: Normal Bowel Sounds, Soft, Tender (epigastrium). No: Distended, Guarding, Rigid Back Exam: Muscle Spasm (left lumbar region). No: CVA Tenderness (L), CVA Tenderness (R) Extremities: Normal Inspection, Normal Range of Motion, No Pedal Edema Neurological: Alert, Oriented, Normal Cognition, No Motor/Sensory Deficits Psychiatric: Normal Affect, Normal Mood Skin Exam: Warm, Dry, Intact, Normal Color, No Rash Course - Vital Signs Last Recorded V/S: Last Vital Signs Temp 96.8 F 04/18/17 17:57 Pulse 98 04/18/17 17:57 Resp 18 04/18/17 17:57 BP 133/49 L 04/18/17 17:57 Pulse Ox 94 L 04/18/17 17:57 - Orders/Labs/Meds Orders: Active Orders 24 hr Category Date Time Status CXR [Chest 2V] [CR] Stat Exams 04/18/17 18:30 Ordered UA W/MICROSCOPIC [URIN] Stat Lab 04/18/17 19:06 Uncollected Azithromycin [Zithromax] 500 mg Med 04/18/17 19:26 Ordered Sodium Chloride 0.9% [Normal Saline] 250 ml IV ONETIME Sodium Chloride 0.9% [Normal Saline] 1,000 ml Med 04/18/17 18:41 Active IV .BOLUS Medication Orders Sodium Chloride (Normal Saline) 1,000 mls @ 999 mls/hr IV .BOLUS ONE Stop: 04/18/17 19:41 Last Admin: 04/18/17 18:48 Dose: 999 mls/hr Azithromycin 500 mg/ Sodium (Chloride) 250 mls @ 250 mls/hr IV ONETIME ONE Stop: 04/18/17 20:25 Labs: Laboratory Tests 04/18/17 04/18/17 04/18/17 Range/Units 18:15 18:15 18:15 WBC 2.0 L (5.0-10.0) 10^3/uL RBC 2.96 L (3.80-5.50) 10^6/uL Hgb 7.9 L (12.0-16.0) g/dL Hct 25.1 L (37.0-47.0) % MCV 84.8 (82.0-92.0) fL MCH 26.8 L (27.0-31.0) pg MCHC 31.6 L (32.0-36.0) g/dL RDW 19.9 H (11.5-14.5) % Plt Count 3 L* (150-300) 10^3/uL MPV 19.9 H (7.4-10.4) fL Add Manual Diff Yes Neutrophils % (Manual) 26 L (50-70) % Lymphocytes % (Manual) 70 H (20-40) % Monocytes % (Manual) 3 (2-8) % Eosinophils % (Manual) 1 (1-3) % Basophils % (Manual) 0 (0-1) % Anisocytosis 1+ slight Tear Drop Cells Occasional Elliptocytes 1+ slight Schistocytes 1+ slight Sodium 144 (136-145) mmol/L Potassium 4.0 (3.3-5.3) mmol/L Chloride 107 (98-115) mmol/L Carbon Dioxide 26.4 (21.0-32.0) mmol/L BUN 19 (6-25) mg/dL Creatinine 0.65 (0.51-1.17) mg/dL Est Cr Clr Drug Dosing 75.39 mL/min Estimated GFR (MDRD) > 60 mL/min Glucose 121 H (70-110) mg/dL Calcium 8.5 L (8.7-10.3) mg/dL Total Bilirubin 0.7 (0.2-1.0) mg/dL AST 5 L (15-37) U/L ALT 11 L (12-78) U/L Alkaline Phosphatase 49 (46-116) IU/L Total Protein 7.2 (6.4-8.2) g/dL Albumin 4.00 (3.00-4.80) g/dL Lipase 68 L (73-393) U/L Meds: Medications Generic Name Dose Route Start Last Admin Trade Name Freq PRN Reason Stop Dose Admin Sodium Chloride 1,000 mls @ 999 mls/hr 04/18/17 18:41 04/18/17 18:48 Normal Saline IV 04/18/17 19:41 999 mls/hr .BOLUS ONE Administration Azithromycin 500 mg/ Sodium 250 mls @ 250 mls/hr 04/18/17 19:26 Chloride IV 04/18/17 20:25 ONETIME ONE Discontinued Medications Generic Name Dose Route Start Last Admin Trade Name Freq PRN Reason Stop Dose Admin Ceftriaxone Sodium 1 gm 04/18/17 19:27 Rocephin IVPUSH 04/18/17 19:28 ONETIME ONE Ketorolac Tromethamine 30 mg 04/18/17 19:03 04/18/17 19:07 Toradol IVPUSH 04/18/17 19:04 30 mg ONETIME ONE Administration Ondansetron HCl 4 mg 04/18/17 18:31 04/18/17 18:48 Zofran IVPUSH 04/18/17 18:32 4 mg ONETIME ONE Administration - Re-Assessments/Exams Free Text/Narrative Re-Assessment/Exam: 04/18/17 19:30 CXR shows small infiltrate in left lung base and questionable infiltrate in right lung base along with small effusions in each. WBC and platelets are low secondary to chemo. She will come in for platelets tomorrow since we don't have them available tonight. Patient is feeling better and thinks she will be okay going home tonight. Discussed with Dr. Evelin Simon who is okay with this plan. Patient discharged in stable condition after receiving Rocephin and Zithromax IV in ER. Departure - Departure Time of Disposition: 19:28 Disposition: Home, Self-Care 01 Condition: Fair Clinical Impression: CAP (community acquired pneumonia) Qualifiers: Laterality: left Lung location: lower lobe of lung Qualified Code(s): J18.1 - Lobar pneumonia, unspecified organism - Discharge Information Referrals: Evelin Briones MD [Primary Care Provider] - Forms: ED Department Discharge Additional Instructions: 1. Take the Zithromax as directed. 2. Return tomorrow for platelets and followup with Dr. Simon. 3. Return to ER if fever develops. - My Orders Last 24 Hours: My Active Orders 04/18/17 18:30 CXR [Chest 2V] [CR] Stat 04/18/17 18:41 Sodium Chloride 0.9% [Normal Saline] 1,000 ml IV .BOLUS 04/18/17 19:06 UA W/MICROSCOPIC [URIN] Stat 04/18/17 19:26 Azithromycin [Zithromax] 500 mg Sodium Chloride 0.9% [Normal Saline] 250 ml IV ONETIME - Assessment/Plan Last 24 Hours: My Active Orders 04/18/17 18:30 CXR [Chest 2V] [CR] Stat 04/18/17 18:41 Sodium Chloride 0.9% [Normal Saline] 1,000 ml IV .BOLUS 04/18/17 19:06 UA W/MICROSCOPIC [URIN] Stat 04/18/17 19:26 Azithromycin [Zithromax] 500 mg Sodium Chloride 0.9% [Normal Saline] 250 ml IV ONETIME
[2017-04-18] MEDS ORDERED: Sodium Chloride 0.9% 1,000 ML IV ONE (18:41)
[2017-04-18 18:52] LABS: CHLORIDE,CL 107 mmol/L (98-115); SODIUM,NA 144 mmol/L (136-145)
[2017-04-18] MEDS ORDERED: Ketorolac 30 MG/ML SDV IVPUSH ONE (19:03)
[2017-04-18] MEDS ORDERED: Azithromycin 500 MG in Sodium Chloride 0.9% 250 ML IV ONE (19:26)
[2017-04-18] MEDS ORDERED: cefTRIAXone 1 GM Vial IVPUSH ONE (19:27)
== END 2017-04-18 21:30 | disposition home or self-care (01) ==
LOC: KA.ED 17:36
DX: J18.9 Pneumonia, unspecified organism (principal); I10 Essential (primary) hypertension; J44.9 Chronic obstructive pulmonary disease, unspecified; Z87.891 Personal history of nicotine dependence; Z88.0 Allergy status to penicillin; Z79.899 Other long term (current) drug therapy
CPT/HCPCS: 71046; 80053; 83690; 85025; 96361; 96365; 96375; 99284; J0456; J0696; J1885; J2405; J7030; J7050; 36415

== ENCOUNTER 2017-06-17 20:24 | Inpatient (IN) | payer MEDICARE ==
[2017-06-17] MEDS ORDERED: Sodium Chloride 0.9% 5 ML Syringe FLUSH PRN (20:44)
[2017-06-17] MEDS ORDERED: Sodium Chloride 0.9% 1,000 ML IV ONE (20:44)
[2017-06-17] MEDS ORDERED: Acetaminophen 500 MG Tab PO ONE (20:44)
[2017-06-17] MEDS ORDERED: Albuterol/Ipratropium 3.0-0.5 MG/3 ML Neb Soln NEB ONE (20:51)
--- NOTE | 2017-06-17 20:51 | EDM.PDOC ---
ED HPI GENERAL MEDICAL PROBLEM - General Chief Complaint: Respiratory Problem Stated Complaint: shortness of breath/fever Time Seen by Provider: 06/17/17 20:40 Source of Information: Reports: Patient, EMS History Limitations: Reports: No Limitations - History of Present Illness INITIAL COMMENTS - FREE TEXT/NARRATIVE: 72 YO WF presents to ER with shortness of breath x 2 days and fever which began today. Pt reports productive cough with hemoptysis. Pt with history of MDS and had chemo therapy 06/15/17 as well as blood transfusion and platelet transfusion due to thrombocytopenia. Pt denies chest pain, denies N/V/D. Pt looks well but states she feels weak. Duration: Day(s): (2) Location: Reports: Generalized Severity: Moderate Improves with: Reports: Rest Worsens with: Reports: Breathing Associated Symptoms: Reports: Cough, cough w sputum, Fever/Chills, Shortness of Breath. Denies: Chest Pain, Nausea/Vomiting Treatments [employer]: Reports: Acetaminophen Headache Pain Score (Numeric/FACES): 8 - Related Data Allergies Allergy/AdvReac Type Severity Reaction Status Date / Time Penicillins Allergy Respiratory Verified 06/17/17 21:17 Distress Home Meds: Home Meds Citalopram Hydrobromide [Celexa] 20 mg PO DAILY 09/08/16 [History] LORazepam 1 mg PO Q6HR PRN 09/08/16 [History] traZODone HCl [Trazodone HCl] 50 - 100 mg PO BEDTIME 09/08/16 [History] Ferrous Sulfate 325 mg PO DAILY 12/08/16 [History] Cholecalciferol (Vitamin D3) [Vitamin D3] 1,000 units PO DAILY 12/09/16 [History ] Cyanocobalamin (Vitamin B12) [Vitamin B12] 500 mcg PO DAILY 12/09/16 [History] Turmeric/Turmeric Root Extract [Turmeric 500 mg Capsule] 1 cap PO DAILY [History] Fluticasone/Vilanterol [Breo Ellipta 200-25 Mcg INH] 1 puff INH DAILY 12/29/16 [ History] Ondansetron HCl [Ondansetron] 8 mg PO Q6H PRN 02/15/17 [History] Albuterol/Ipratropium [DuoNeb 3.0-0.5 MG/3 ML] 3 ml NEB Q4HRRT PRN neb [Rx] Albuterol [Ventolin HFA] 1 - 2 puff INH Q4HR PRN 04/19/17 [History] Polyethylene Glycol 3350 [Miralax] 1 pack PO DAILY PRN 06/08/17 [History] LORazepam 1 mg PO BID PRN 06/11/17 [History] Voriconazole 200 mg PO ASDIRECTED 06/11/17 [History] Past Medical History HEENT History: Reports: Impaired Vision Cardiovascular History: Reports: Blood Clots/VTE/DVT, Hypertension, SOB on Exertion Respiratory History: Reports: COPD, Other (See Below) Other Respiratory History: Home oxygen prn. Gastrointestinal History: Reports: Chronic Diarrhea Genitourinary History: Reports: None SHIP RUNNER History: Reports: Musculoskeletal History: Reports: Arthritis Neurological History: Reports: None Psychiatric History: Reports: Addiction, Anxiety, Depression, Panic Attack Hematologic History: Reports: Other (See Below) Other Hematologic History: MDS, standing orders for platelet and PRBC transfusions. Immunologic History: Reports: Immunosuppression Oncologic (Cancer) History: Reports: Other (See Below) Other Oncologic History: MDS Dermatologic History: Reports: Psoriasis - Infectious Disease History Infectious Disease History: Reports: Chicken Pox, Measles, Mumps, Shingles - Past Surgical History HEENT Surgical History: Reports: None Cardiovascular Surgical History: Reports: None Respiratory Surgical History: Reports: None GI Surgical History: Reports: Cholecystectomy, Colonoscopy, EGD Female Surgical History: Reports: Hysterectomy Musculoskeletal Surgical History: Reports: None Other Oncologic Surgeries/Procedures: Bone Marrow Biopsy completed first week of March 2017. Dermatological Surgical History: Reports: None Social & Family History - Tobacco Use Smoking Status *Q: Former Smoker Years of Tobacco use: 40 Packs/Tins Daily: 1 Used Tobacco, but Quit: Yes Month/Year Tobacco Last Used: 05/2014 Second Hand Smoke Exposure: No - Caffeine Use Caffeine Use: Reports: Coffee - Alcohol Use Days Per Week of Alcohol Use: 0 Number of Drinks Per Day: 0 Total Drinks Per Week: 0 - Recreational Drug Use Recreational Drug Use: Yes Drug Use in Last 12 Months: No Recreational Drug Type: Reports: Marijuana/Hashish Recreational Drug Use Frequency: Not Used In Over 6 Months ED ROS GENERAL - Review of Systems Review Of Systems: See Below Constitutional: Reports: Fever, Chills, Weakness HEENT: Reports: No Symptoms Respiratory: Reports: Shortness of Breath, Wheezing, Cough, Sputum Cardiovascular: Reports: No Symptoms Endocrine: Reports: No Symptoms GI/Abdominal: Reports: No Symptoms : Reports: No Symptoms Musculoskeletal: Reports: No Symptoms Skin: Reports: No Symptoms Neurological: Reports: No Symptoms Psychiatric: Reports: No Symptoms Hematologic/Lymphatic: Reports: No Symptoms Immunologic: Reports: No Symptoms ED EXAM, GENERAL - Physical Exam Exam: See Below Exam Limited By: No Limitations General Appearance: Alert, WD/WN, No Apparent Distress Head: Atraumatic, Normocephalic Neck: Normal Inspection, Supple, Non-Tender, Full Range of Motion Respiratory/Chest: No Respiratory Distress, No Accessory Muscle Use, Rhonchi, Wheezing. No: Respiratory Distress, Accessory Muscle Use Cardiovascular: Normal Peripheral Pulses, Regular Rate, Rhythm, No Edema, No Gallop, No JVD, No Murmur, No Rub GI/Abdominal: Normal Bowel Sounds, Soft, Non-Tender, No Organomegaly, No Distention, No Abnormal Bruit, No Mass Back Exam: Normal Inspection, Full Range of Motion, NT Extremities: Normal Inspection, Normal Range of Motion, Non-Tender, Normal Capillary Refill, No Pedal Edema Neurological: Alert, Oriented, CN II-XII Intact, Normal Cognition, Normal Gait, Normal Reflexes, No Motor/Sensory Deficits Psychiatric: Normal Affect, Normal Mood Skin Exam: Warm, Dry, Intact, Normal Color, No Rash Lymphatic: No Adenopathy Course - Vital Signs Last Recorded V/S: Last Vital Signs Temp 38.4 C H 06/17/17 21:00 Pulse 83 06/17/17 20:51 Resp 17 06/17/17 20:25 BP 101/36 L 06/17/17 20:25 Pulse Ox 90 L 06/17/17 20:51 - Orders/Labs/Meds Orders: Active Orders 24 hr Category Date Time Status Patient Status Manage Transfer [TRANSFER] Routine ADT 06/17/17 21:39 Ordered Patient Status [ADT] Routine ADT 06/17/17 21:41 Ordered Bedrest Bathroom Privileges [RC] ASDIRECTED Care 06/17/17 21:41 Active Oxygen Therapy [RC] PRN Care 06/17/17 21:41 Active Peripheral IV Care [RC] . DIRECTED Care 06/17/17 20:44 Active Peripheral IV Care [RC] . DIRECTED Care 06/17/17 21:43 Active RT Aerosol Therapy [RC] ASDIRECTED Care 06/17/17 20:51 Active RT Aerosol Therapy [RC] ASDIRECTED Care 06/17/17 21:53 Active VTE/DVT Education [RC] PER UNIT ROUTINE Care 06/17/17 21:41 Active Vital Signs [RC] Q4H Care 06/17/17 21:41 Active Regular Diet [DIET] Diet 06/18/17 Breakfast Active Chest 2V [CR] Stat Exams 06/17/17 20:44 Taken Chest w Cont [CT] Timed Exams 06/18/17 21:47 Ordered BASIC METABOLIC PANEL,BMP [CHEM] AM Lab 06/18/17 05:11 Ordered CBC WITH AUTO DIFF [HEME] AM Lab 06/18/17 05:11 Ordered CULTURE BLOOD [BC] Stat Lab 06/17/17 20:45 Received CULTURE BLOOD [BC] Stat Lab 06/17/17 21:05 Received CULTURE SPUTUM + SMEAR [RM] Stat Lab 06/17/17 21:41 Ordered UA W/MICROSCOPIC [URIN] Stat Lab 06/17/17 21:45 Ordered Albuterol/Ipratropium [DuoNeb 3.0-0.5 MG/3 ML] Med 06/17/17 23:00 Active 3 ml NEB Q6HRRT Levofloxacin/Dextrose 5%-Water [Levaquin in D5W 500 MG/ Med 06/17/17 21:45 Active 100 ML] 500 mg Premix Bag 1 bag IV Q24H Sodium Chloride 0.9% [Syrex Flush] Med 06/17/17 20:44 Active 5 ml FLUSH Q8HR PRN Sodium Chloride 0.9% [Syrex Flush] Med 06/17/17 21:41 Active 5 ml FLUSH Q8HR PRN Vancomycin 1 gm Med 06/17/17 21:45 Active Sodium Chloride 0.9% [Normal Saline] 250 ml IV Q24H Blood Culture x2 Reflex Set [OM.PC] Stat Oth 06/17/17 20:44 Ordered Isolation [COMM] Routine Oth 06/17/17 21:49 Ordered Peripheral IV Insertion Adult [OM.PC] Routine Oth 06/17/17 20:44 Ordered Peripheral IV Insertion Adult [OM.PC] Routine Oth 06/17/17 21:41 Ordered Resuscitation Status Routine Resus Stat 06/17/17 21:41 Ordered Medication Orders Albuterol/Ipratropium (Duoneb 3.0-0.5 Mg/3 Ml) 3 ml NEB Q6HRRT MIKIE Levofloxacin/Dextrose 500 mg/ (Premix) 100 mls @ 100 mls/hr IV Q24H MIKIE Vancomycin HCl 1 gm/ Sodium (Chloride) 250 mls @ 167 mls/hr IV Q24H MIKIE Sodium Chloride (Syrex Flush) 5 ml FLUSH Q8HR PRN PRN Reason: Keep Vein Open Sodium Chloride (Syrex Flush) 5 ml FLUSH Q8HR PRN PRN Reason: Keep Vein Open Labs: Laboratory Tests 06/17/17 06/17/17 06/17/17 Range/Units 21:05 21:05 21:05 WBC 1.2 L* (5.0-10.0) 10^3/uL RBC 2.27 L (3.80-5.50) 10^6/uL Hgb 6.8 L* (12.0-16.0) g/dL Hct 20.5 L (37.0-47.0) % MCV 90.1 (82.0-92.0) fL MCH 29.9 (27.0-31.0) pg MCHC 33.1 (32.0-36.0) g/dL RDW 15.4 H (11.5-14.5) % Plt Count 3 L* (150-300) 10^3/uL MPV 4.2 L (7.4-10.4) fL Neut % (Auto) 44.9 L (50.0-70.0) % Lymph % (Auto) 50.9 H (20.0-40.0) % [place] % (Auto) 3.1 (2.0-8.0) % Eos % (Auto) 0.6 L (1.0-3.0) % Baso % (Auto) 0.5 (0.0-1.0) % Neut # (Auto) 0.5 L (2.5-7.0) 10^3/uL Lymph # (Auto) 0.7 L (1.0-4.0) 10^3/uL [place] # (Auto) 0.0 L (0.1-0.8) 10^3/uL Eos # (Auto) 0.0 L (0.1-0.3) 10^3/uL Baso # (Auto) 0.0 (0.0-0.1) 10^3/uL Sodium 141 (136-145) mmol/L Potassium 4.1 (3.3-5.3) mmol/L Chloride 104 (98-115) mmol/L Carbon Dioxide 25.5 (21.0-32.0) mmol/L BUN 19 (6-25) mg/dL Creatinine 0.78 (0.51-1.17) mg/dL Est Cr Clr Drug Dosing 61.93 mL/min Estimated GFR (MDRD) > 60 mL/min Glucose 112 H (70-110) mg/dL Lactic Acid 1.9 (0.4-2.0) mmol/L Calcium 8.5 L (8.7-10.3) mg/dL Total Bilirubin 0.8 (0.2-1.0) mg/dL AST 5 L (15-37) U/L ALT 17 (12-78) U/L Alkaline Phosphatase 43 L (46-116) IU/L Total Protein 6.8 (6.4-8.2) g/dL Albumin 3.92 (3.00-4.80) g/dL Urine Color (YELLOW) Urine Appearance (CLEAR) Urine pH (5.0-9.0) Ur Specific [place] (1.005-1.030) Urine Protein (NEGATIVE) mg/dL Urine Glucose (UA) (NEGATIVE) mg/dL Urine Ketones (NEGATIVE) mg/dL Urine Occult Blood (NEGATIVE) Urine Nitrite (NEGATIVE) Urine Bilirubin (NEGATIVE) Urine Urobilinogen (0.2-1.0) E.U./dL Ur Leukocyte Esterase (NEGATIVE) 06/17/17 Range/Units 21:45 WBC (5.0-10.0) 10^3/uL RBC (3.80-5.50) 10^6/uL Hgb (12.0-16.0) g/dL Hct (37.0-47.0) % MCV (82.0-92.0) fL MCH (27.0-31.0) pg MCHC (32.0-36.0) g/dL RDW (11.5-14.5) % Plt Count (150-300) 10^3/uL MPV (7.4-10.4) fL Neut % (Auto) (50.0-70.0) % Lymph % (Auto) (20.0-40.0) % [place] % (Auto) (2.0-8.0) % Eos % (Auto) (1.0-3.0) % Baso % (Auto) (0.0-1.0) % Neut # (Auto) (2.5-7.0) 10^3/uL Lymph # (Auto) (1.0-4.0) 10^3/uL [place] # (Auto) (0.1-0.8) 10^3/uL Eos # (Auto) (0.1-0.3) 10^3/uL Baso # (Auto) (0.0-0.1) 10^3/uL Sodium (136-145) mmol/L Potassium (3.3-5.3) mmol/L Chloride (98-115) mmol/L Carbon Dioxide (21.0-32.0) mmol/L BUN (6-25) mg/dL Creatinine (0.51-1.17) mg/dL Est Cr Clr Drug Dosing mL/min Estimated GFR (MDRD) mL/min Glucose (70-110) mg/dL Lactic Acid (0.4-2.0) mmol/L Calcium (8.7-10.3) mg/dL Total Bilirubin (0.2-1.0) mg/dL AST (15-37) U/L ALT (12-78) U/L Alkaline Phosphatase (46-116) IU/L Total Protein (6.4-8.2) g/dL Albumin (3.00-4.80) g/dL Urine Color Yellow (YELLOW) Urine Appearance Slightly cloudy H (CLEAR) Urine pH 5.5 (5.0-9.0) Ur Specific [place] 1.020 (1.005-1.030) Urine Protein Negative (NEGATIVE) mg/dL Urine Glucose (UA) Negative (NEGATIVE) mg/dL Urine Ketones Negative (NEGATIVE) mg/dL Urine Occult Blood Moderate H (NEGATIVE) Urine Nitrite Positive H (NEGATIVE) Urine Bilirubin Negative (NEGATIVE) Urine Urobilinogen 0.2 (0.2-1.0) E.U./dL Ur Leukocyte Esterase Small H (NEGATIVE) Meds: Medications Generic Name Dose Route Start Last Admin Trade Name Freq PRN Reason Stop Dose Admin Albuterol/Ipratropium 3 ml 06/17/17 23:00 Duoneb 3.0-0.5 Mg/3 Ml NEB Q6HRRT MIKIE Levofloxacin/Dextrose 500 mg/ 100 mls @ 100 mls/hr 06/17/17 21:45 Premix IV Q24H MIKIE Vancomycin HCl 1 gm/ Sodium 250 mls @ 167 mls/hr 06/17/17 21:45 Chloride IV Q24H MIKIE Sodium Chloride 5 ml 06/17/17 20:44 Syrex Flush FLUSH Q8HR PRN Keep Vein Open Sodium Chloride 5 ml 06/17/17 21:41 Syrex Flush FLUSH Q8HR PRN Keep Vein Open Discontinued Medications Generic Name Dose Route Start Last Admin Trade Name Freq PRN Reason Stop Dose Admin Acetaminophen 1,000 mg 06/17/17 20:44 06/17/17 21:00 Tylenol Extra Strength PO 06/17/17 20:45 1,000 mg ONETIME ONE Administration Albuterol/Ipratropium 3 ml 06/17/17 20:51 06/17/17 21:22 Duoneb 3.0-0.5 Mg/3 Ml NEB 06/17/17 20:52 3 ml ONETIME ONE Administration Sodium Chloride 1,000 mls @ 999 mls/hr 06/17/17 20:44 06/17/17 21:00 Normal Saline IV 06/17/17 21:44 999 mls/hr .BOLUS ONE Administration - Radiology Interpretation Free Text/Narrative:: CXR- left upper lobe nodular opacity; cephalization Departure - Departure Time of Disposition: 21:38 Disposition: Admitted As Inpatient 67 Condition: Serious Clinical Impression: Neutropenic fever, MDS (myelodysplastic syndrome), Thrombocytopenia Anemia Qualifiers: Anemia type: other cause - Discharge Information Forms: ED Department Discharge - My Orders Last 24 Hours: My Active Orders 06/17/17 20:44 Peripheral IV Care [RC] . DIRECTED Chest 2V [CR] Stat Sodium Chloride 0.9% [Syrex Flush] 5 ml FLUSH Q8HR PRN Blood Culture x2 Reflex Set [OM.PC] Stat Peripheral IV Insertion Adult [OM.PC] Routine 06/17/17 20:45 CULTURE BLOOD [BC] Stat 06/17/17 20:51 RT Aerosol Therapy [RC] ASDIRECTED 06/17/17 21:05 CULTURE BLOOD [BC] Stat 06/17/17 21:39 Patient Status Manage Transfer [TRANSFER] Routine 06/17/17 21:41 Patient Status [ADT] Routine Bedrest Bathroom Privileges [RC] ASDIRECTED Oxygen Therapy [RC] PRN VTE/DVT Education [RC] PER UNIT ROUTINE Vital Signs [RC] Q4H CULTURE SPUTUM + SMEAR [RM] Stat Sodium Chloride 0.9% [Syrex Flush] 5 ml FLUSH Q8HR PRN Peripheral IV Insertion Adult [OM.PC] Routine Resuscitation Status Routine 06/17/17 21:43 Peripheral IV Care [RC] . DIRECTED 06/17/17 21:45 UA W/MICROSCOPIC [URIN] Stat Levofloxacin/Dextrose 5%-Water [Levaquin in D5W 500 MG/100 ML] 500 mg Premix Bag 1 bag IV Q24H Vancomycin 1 gm Sodium Chloride 0.9% [Normal Saline] 250 ml IV Q24H 06/17/17 21:49 Isolation [COMM] Routine 06/17/17 21:53 RT Aerosol Therapy [RC] ASDIRECTED 06/17/17 23:00 Albuterol/Ipratropium [DuoNeb 3.0-0.5 MG/3 ML] 3 ml NEB Q6HRRT 06/18/17 05:11 BASIC METABOLIC PANEL,BMP [CHEM] AM CBC WITH AUTO DIFF [HEME] AM 06/18/17 21:47 Chest w Cont [CT] Timed 06/18/17 Breakfast Regular Diet [DIET] - Assessment/Plan Last 24 Hours: My Active Orders 06/17/17 20:44 Peripheral IV Care [RC] . DIRECTED Chest 2V [CR] Stat Sodium Chloride 0.9% [Syrex Flush] 5 ml FLUSH Q8HR PRN Blood Culture x2 Reflex Set [OM.PC] Stat Peripheral IV Insertion Adult [OM.PC] Routine 06/17/17 20:45 CULTURE BLOOD [BC] Stat 06/17/17 20:51 RT Aerosol Therapy [RC] ASDIRECTED 06/17/17 21:05 CULTURE BLOOD [BC] Stat 06/17/17 21:39 Patient Status Manage Transfer [TRANSFER] Routine 06/17/17 21:41 Patient Status [ADT] Routine Bedrest Bathroom Privileges [RC] ASDIRECTED Oxygen Therapy [RC] PRN VTE/DVT Education [RC] PER UNIT ROUTINE Vital Signs [RC] Q4H CULTURE SPUTUM + SMEAR [RM] Stat Sodium Chloride 0.9% [Syrex Flush] 5 ml FLUSH Q8HR PRN Peripheral IV Insertion Adult [OM.PC] Routine Resuscitation Status Routine 06/17/17 21:43 Peripheral IV Care [RC] . DIRECTED 06/17/17 21:45 UA W/MICROSCOPIC [URIN] Stat Levofloxacin/Dextrose 5%-Water [Levaquin in D5W 500 MG/100 ML] 500 mg Premix Bag 1 bag IV Q24H Vancomycin 1 gm Sodium Chloride 0.9% [Normal Saline] 250 ml IV Q24H 06/17/17 21:49 Isolation [COMM] Routine 06/17/17 21:53 RT Aerosol Therapy [RC] ASDIRECTED 06/17/17 23:00 Albuterol/Ipratropium [DuoNeb 3.0-0.5 MG/3 ML] 3 ml NEB Q6HRRT 06/18/17 05:11 BASIC METABOLIC PANEL,BMP [CHEM] AM CBC WITH AUTO DIFF [HEME] AM 06/18/17 21:47 Chest w Cont [CT] Timed 06/18/17 Breakfast Regular Diet [DIET] Assessment:: 1. neutropenic fever 2. hypoxemia 3. thrombocytopenia 4. anemia Plan: 1. admit to Dr Ibarra 2. vancomycin 1g IV 3. Levaquin 400mg IV 4. transfuse platelets 5. oxygen 6. duoneb tx Q4 and PRN
[2017-06-17 21:29] LABS: CHLORIDE,CL 104 mmol/L (98-115); SODIUM,NA 141 mmol/L (136-145)
[2017-06-17] MEDS: Levofloxacin/Dextrose 5%-Water 500 MG in Premix Bag 1 BAG IV SCH (22:56)
[2017-06-17] MEDS ORDERED: traZODone 50 MG Tab PO SCH (23:24)
[2017-06-17] MEDS: Albuterol/Ipratropium 3.0-0.5 MG/3 ML Neb Soln NEB SCH (23:27)
[2017-06-18] MEDS ORDERED: Albuterol/Ipratropium 3.0-0.5 MG/3 ML Neb Soln NEB PRN (00:34)
[2017-06-18] MEDS: LORazepam 0.5 MG Tab PO PRN ×2 (00:48→23:11)
[2017-06-18] MEDS: Albuterol/Ipratropium 3.0-0.5 MG/3 ML Neb Soln NEB SCH ×4 (05:53→23:12)
[2017-06-18] MEDS: Acetaminophen 325 MG Tab PO PRN ×2 (06:22→23:11)
[2017-06-18] MEDS ORDERED: Albuterol HFA 18 Gm Inhaler INH PRN (08:23)
[2017-06-18] MEDS ORDERED: Polyethylene Glycol 3350 Powder 17 GM Packet PO PRN (08:23)
[2017-06-18] MEDS ORDERED: Ondansetron 4 MG Tab.DIS PO PRN (08:23)
[2017-06-18] MEDS ORDERED: Sodium Chloride 0.9% 50 ML IV SCH (08:30)
--- NOTE | 2017-06-18 08:54 | PCM.PN ---
- General Info Date of Service: 06/18/17 Admission Dx/Problem (Free Text): Neutropenic fever. - Review of Systems Systems Review Comment:: Phyllis is seen today on inpatient rounds. I briefly saw her on 06/15/17, it was not a scheduled visit but rather a check-in while she was getting her chemo. She had no fevers but had a productive cough with hemoptysis. Platelets are chronically low with her MDS and she was receiving PRBC's and platelets that day. She was prophylactically started on azithromycin. She developed a fever on 06/17/17 and presented to the ER. CXR showed a right upper lobe abnormality and recommended CT chest, which she will have this morning. She also was typed and screened for platelets and has yet to get those. Her level was 3 with a hemoglobin of 6.8. Temp was 101.2. She was started on vancomycin and levofloxacin avoiding zosyn due to her PCN allergy. 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 She was seen by infectious disease and the recommended starting her on treatment with voriconazole. She was, however, on citalopram 40 mg PO daily and there is a risk of QT prolongation with this. She has now weaned down to citalopram 10 mg and it is not felt to be safe for her to start that, however her first dose was scheduled to be today and so she has not had this yet. She was also noted to have a urine positive for UTI with >100 WBC's. Urine culture is pending. Blood cultures have been obtained, she has been unable to cough up sputum at this time. She notes feeling weak and run down today. Vital signs have remained stable, she has been afebrile for nearly 10 hours. She is passing her bowels OK. Appetite is reported as "OK". - Patient Data Vitals - Most Recent: Last Vital Signs Temp 98.9 F 06/18/17 06:04 Pulse 90 06/18/17 06:04 Resp 20 06/18/17 06:04 BP 99/48 L 06/18/17 06:04 Pulse Ox 97 06/18/17 06:04 Weight - Most Recent: 157 lb 11.2 oz I&O - Last 24 Hours: Intake & Output 06/17/17 06/18/17 06/18/17 22:59 06:59 14:59 Intake Total 50 770 Output Total 800 Balance 50 -30 Lab Results Last 24 Hours: Laboratory Results - last 24 hr 06/17/17 06/17/17 06/17/17 Range/Units 21:05 21:05 21:05 WBC 1.2 L* (5.0-10.0) 10^3/uL RBC 2.27 L (3.80-5.50) 10^6/uL Hgb 6.8 L* (12.0-16.0) g/dL Hct 20.5 L (37.0-47.0) % MCV 90.1 (82.0-92.0) fL MCH 29.9 (27.0-31.0) pg MCHC 33.1 (32.0-36.0) g/dL RDW 15.4 H (11.5-14.5) % Plt Count 3 L* (150-300) 10^3/uL MPV 4.2 L (7.4-10.4) fL Neut % (Auto) 44.9 L (50.0-70.0) % Lymph % (Auto) 50.9 H (20.0-40.0) % [place] % (Auto) 3.1 (2.0-8.0) % Eos % (Auto) 0.6 L (1.0-3.0) % Baso % (Auto) 0.5 (0.0-1.0) % Neut # (Auto) 0.5 L (2.5-7.0) 10^3/uL Lymph # (Auto) 0.7 L (1.0-4.0) 10^3/uL [place] # (Auto) 0.0 L (0.1-0.8) 10^3/uL Eos # (Auto) 0.0 L (0.1-0.3) 10^3/uL Baso # (Auto) 0.0 (0.0-0.1) 10^3/uL Sodium 141 (136-145) mmol/L Potassium 4.1 (3.3-5.3) mmol/L Chloride 104 (98-115) mmol/L Carbon Dioxide 25.5 (21.0-32.0) mmol/L BUN 19 (6-25) mg/dL Creatinine 0.78 (0.51-1.17) mg/dL Est Cr Clr Drug Dosing 61.93 mL/min Estimated GFR (MDRD) > 60 mL/min Glucose 112 H (70-110) mg/dL Lactic Acid 1.9 (0.4-2.0) mmol/L Calcium 8.5 L (8.7-10.3) mg/dL Total Bilirubin 0.8 (0.2-1.0) mg/dL AST 5 L (15-37) U/L ALT 17 (12-78) U/L Alkaline Phosphatase 43 L (46-116) IU/L Total Protein 6.8 (6.4-8.2) g/dL Albumin 3.92 (3.00-4.80) g/dL Specimen Type Urine Color (YELLOW) Urine Appearance (CLEAR) Urine pH (5.0-9.0) Ur Specific [place] (1.005-1.030) Urine Protein (NEGATIVE) mg/dL Urine Glucose (UA) (NEGATIVE) mg/dL Urine Ketones (NEGATIVE) mg/dL Urine Occult Blood (NEGATIVE) Urine Nitrite (NEGATIVE) Urine Bilirubin (NEGATIVE) Urine Urobilinogen (0.2-1.0) E.U./dL Ur Leukocyte Esterase (NEGATIVE) Urine RBC /HPF Urine WBC /HPF Ur Epithelial Cells /LPF Urine Bacteria (NONE TO FEW) /HPF 06/17/17 Range/Units 21:45 WBC (5.0-10.0) 10^3/uL RBC (3.80-5.50) 10^6/uL Hgb (12.0-16.0) g/dL Hct (37.0-47.0) % MCV (82.0-92.0) fL MCH (27.0-31.0) pg MCHC (32.0-36.0) g/dL RDW (11.5-14.5) % Plt Count (150-300) 10^3/uL MPV (7.4-10.4) fL Neut % (Auto) (50.0-70.0) % Lymph % (Auto) (20.0-40.0) % [place] % (Auto) (2.0-8.0) % Eos % (Auto) (1.0-3.0) % Baso % (Auto) (0.0-1.0) % Neut # (Auto) (2.5-7.0) 10^3/uL Lymph # (Auto) (1.0-4.0) 10^3/uL [place] # (Auto) (0.1-0.8) 10^3/uL Eos # (Auto) (0.1-0.3) 10^3/uL Baso # (Auto) (0.0-0.1) 10^3/uL Sodium (136-145) mmol/L Potassium (3.3-5.3) mmol/L Chloride (98-115) mmol/L Carbon Dioxide (21.0-32.0) mmol/L BUN (6-25) mg/dL Creatinine (0.51-1.17) mg/dL Est Cr Clr Drug Dosing mL/min Estimated GFR (MDRD) mL/min Glucose (70-110) mg/dL Lactic Acid (0.4-2.0) mmol/L Calcium (8.7-10.3) mg/dL Total Bilirubin (0.2-1.0) mg/dL AST (15-37) U/L ALT (12-78) U/L Alkaline Phosphatase (46-116) IU/L Total Protein (6.4-8.2) g/dL Albumin (3.00-4.80) g/dL Specimen Type Urinvoid Urine Color Yellow (YELLOW) Urine Appearance Slightly cloudy H (CLEAR) Urine pH 5.5 (5.0-9.0) Ur Specific [place] 1.020 (1.005-1.030) Urine Protein Negative (NEGATIVE) mg/dL Urine Glucose (UA) Negative (NEGATIVE) mg/dL Urine Ketones Negative (NEGATIVE) mg/dL Urine Occult Blood Moderate H (NEGATIVE) Urine Nitrite Positive H (NEGATIVE) Urine Bilirubin Negative (NEGATIVE) Urine Urobilinogen 0.2 (0.2-1.0) E.U./dL Ur Leukocyte Esterase Small H (NEGATIVE) Urine RBC 0-5 /HPF Urine WBC >100 H /HPF Ur Epithelial Cells Few /LPF Urine Bacteria Few (NONE TO FEW) /HPF Med Orders - Current: Current Medications Acetaminophen (Tylenol) 325 - 650 mg PO Q4H PRN PRN Reason: Pain Last Admin: 06/18/17 06:22 Dose: 650 mg Albuterol (Ventolin Hfa) gm INH Q4HR PRN PRN Reason: Shortness of Breath Albuterol/Ipratropium (Duoneb 3.0-0.5 Mg/3 Ml) 3 ml NEB Q6HRRT [facility] Last Admin: 06/18/17 05:53 Dose: 3 ml Albuterol/Ipratropium (Duoneb 3.0-0.5 Mg/3 Ml) 3 ml NEB TIDRT PRN PRN Reason: Shortness of Breath Last Admin: 06/18/17 00:58 Dose: 3 ml Albuterol/Ipratropium (Duoneb 3.0-0.5 Mg/3 Ml) 3 ml NEB Q6HRRT [facility] Cholecalciferol (Vitamin D3) 1,000 units PO DAILY [facility] Citalopram Hydrobromide (Celexa) 10 mg PO DAILY [facility] Cyanocobalamin (Vitamin B12) 500 mcg PO DAILY [facility] Levofloxacin/Dextrose 500 mg/ (Premix) 100 mls @ 100 mls/hr IV Q24H [facility] Last Admin: 06/17/17 22:56 Dose: 100 mls/hr Vancomycin HCl 1 gm/ Sodium (Chloride) 250 mls @ 167 mls/hr IV Q24H [facility] Last Admin: 06/18/17 00:09 Dose: 167 mls/hr Sodium Chloride (Normal Saline) 50 mls @ 200 mls/hr IV ASDIRECTED [facility] Iopamidol (Isovue-300 (61%)) 75 ml IV ONETIME ONE Stop: 06/18/17 08:21 Lorazepam (Ativan) 1 mg PO QID PRN PRN Reason: Anxiety Last Admin: 06/18/17 00:48 Dose: 1 mg Non-Formulary Medication (Ondansetron) 8 mg PO Q6H PRN PRN Reason: Nausea Non-Formulary Medication (Trazodone Hcl [Trazodone Hcl]) 50 - 100 mg PO BEDTIME [facility] Non-Formulary Medication (Voriconazole [Voriconazole]) 200 mg PO ASDIRECTED [facility] Polyethylene Glycol (Miralax) gm PO DAILY PRN PRN Reason: Constipation Sodium Chloride (Syrex Flush) 5 ml FLUSH Q8HR PRN PRN Reason: Keep Vein Open Trazodone HCl (Trazodone) 50 mg PO BEDTIME [facility] Last Admin: 06/17/17 23:44 Dose: 50 mg Discontinued Medications Acetaminophen (Tylenol Extra Strength) 1,000 mg PO ONETIME ONE Stop: 06/17/17 20:45 Last Admin: 06/17/17 21:00 Dose: 1,000 mg Albuterol/Ipratropium (Duoneb 3.0-0.5 Mg/3 Ml) 3 ml NEB ONETIME ONE Stop: 06/17/17 20:52 Last Admin: 06/17/17 21:22 Dose: 3 ml Sodium Chloride (Normal Saline) 1,000 mls @ 999 mls/hr IV .BOLUS ONE Stop: 06/17/17 21:44 Last Admin: 06/17/17 21:00 Dose: 999 mls/hr Non-Formulary Medication (Citalopram Hydrobromide [Celexa]) 20 mg PO DAILY [facility] Sodium Chloride (Syrex Flush) 5 ml FLUSH Q8HR PRN PRN Reason: Keep Vein Open - Exam Quality Assessment: Supplemental Oxygen General: Alert, Oriented, Cooperative, No Acute Distress Lungs: Decreased Breath Sounds, Crackles (Left lower lung base.) Cardiovascular: Regular Rate, Regular Rhythm, No Murmurs GI/Abdominal Exam: Normal Bowel Sounds, Soft, Non-Tender, No Organomegaly Extremities: Normal Inspection, No Pedal Edema - Problem List & Annotations (1) UTI (urinary tract infection) SNOMED Code(s): 08706263 Code(s): N39.0 - URINARY TRACT INFECTION, SITE NOT SPECIFIED Status: Acute Current Visit: Yes (2) Anemia SNOMED Code(s): 327033176 Code(s): D64.9 - ANEMIA, UNSPECIFIED Status: Acute Current Visit: No Qualifiers: Anemia type: other cause (3) MDS (myelodysplastic syndrome) SNOMED Code(s): 255241090 Code(s): D46.9 - MYELODYSPLASTIC SYNDROME, UNSPECIFIED Status: Acute Current Visit: No (4) Neutropenic fever SNOMED Code(s): 640371262 Code(s): D70.9 - NEUTROPENIA, UNSPECIFIED; R50.81 - FEVER PRESENTING WITH CONDITIONS CLASSIFIED ELSEWHERE Status: Acute Current Visit: No (5) Thrombocytopenia SNOMED Code(s): 062155249 Code(s): D69.6 - THROMBOCYTOPENIA, UNSPECIFIED Status: Acute Current Visit: No (6) Aspergillosis SNOMED Code(s): 56910955 Code(s): B44.9 - ASPERGILLOSIS, UNSPECIFIED Status: Acute Current Visit: Yes (7) Depression SNOMED Code(s): 96322618 Code(s): F32.9 - MAJOR DEPRESSIVE DISORDER, SINGLE EPISODE, UNSPECIFIED Status: Chronic Current Visit: No - Problem List Review Problem List Initiated/Reviewed/Updated: Yes - My Orders Last 24 Hours: My Active Orders 06/18/17 08:20 Iopamidol [Isovue-300 (61%)] 75 ml IV ONETIME ONE 06/18/17 08:22 CULTURE URINE [RM] Routine 06/18/17 08:23 Albuterol [Ventolin HFA] 1 - 2 puff INH Q4HR PRN Ondansetron 8 mg PO Q6H PRN Polyethylene Glycol 3350 [MiraLAX] 1 pack PO DAILY PRN 06/18/17 08:30 Sodium Chloride 0.9% [Normal Saline] 50 ml IV ASDIRECTED Voriconazole [Voriconazole] 200 mg PO ASDIRECTED 06/18/17 08:42 Transfuse PRBC [Transfuse Red Blood Cells] [COMM] Urgent 06/18/17 09:00 Cholecalciferol (Vitamin D3) [Vitamin D3] 1,000 units PO DAILY Citalopram [Celexa] 10 mg PO DAILY Cyanocobalamin (Vitamin B12) [Vitamin B12] 500 mcg PO DAILY Fluticasone/Vilanterol [Breo Ellipta 200-25 MCG Inhalation Kit] 1 puff IH DAILY 06/18/17 11:00 Albuterol/Ipratropium [DuoNeb 3.0-0.5 MG/3 ML] 3 ml NEB Q6HRRT 06/18/17 21:00 traZODone HCl [Trazodone HCl] 50 - 100 mg PO BEDTIME - Assessment Assessment:: Neutropenic fever. UTI. Thrombocytopenia. Anemia. MDS. Aspergillosis. Depression. - Plan Plan:: Neutropenic fever. Tylenol PRN for fever. Continue vancomycin and levofloxacin until culture return and antibiotics can be tailored based on sensitivities. UTI. Antibiotics as above, urine culture pending. Thrombocytopenia. Platelets today (1 unit/6 pack), if her 2nd unit comes today will also give that as well. Anemia. Transfuse 1 unit PRBC's today. Daily labs, transfuse for hgb <7. MDS. Continue with chemotherapy per protocol. Aspergillosis. Will start her voriconazole. Depression. Continue with citalopram 10 mg PO daily and lorazepam PRN.
[2017-06-18] MEDS ORDERED: Non-Formulary Medication 1 Each (Citalopram Hydrobromide [Celexa] 20 MG) PO SCH (09:00)
[2017-06-18] MEDS ORDERED: diphenhydrAMINE 25 MG Cap PO ONE (09:25)
[2017-06-18] MEDS ORDERED: Acetaminophen 325 MG Tab PO ONE (09:25)
[2017-06-18 09:28] LABS: CHLORIDE,CL 107 mmol/L (98-115); SODIUM,NA 143 mmol/L (136-145)
[2017-06-18] MEDS: Sodium Chloride 0.9% 5 ML Syringe FLUSH PRN ×2 (09:48→21:30)
[2017-06-18] MEDS: BREO ELLIPTA INH SCH (09:49)
[2017-06-18] MEDS: Iopamidol 612 MG/ML 75 ML Bottle IV ONE ×2 (09:49→17:07)
[2017-06-18] MEDS: Cyanocobalamin (Vitamin B12) 500 MCG Tab PO SCH (09:49)
[2017-06-18] MEDS: Citalopram 20 MG Tab PO SCH (09:49)
[2017-06-18] MEDS: Cholecalciferol (Vitamin D3) 1,000 Unit Tab PO SCH (09:49)
[2017-06-18] MEDS: Sodium Chloride 0.9% 250 ML IV SCH (15:39)
[2017-06-18] MEDS: VORICONAZOLE 200 MG PO SCH (19:37)
[2017-06-18] MEDS: Levofloxacin/Dextrose 5%-Water 500 MG in Premix Bag 1 BAG IV SCH (21:30)
[2017-06-18] MEDS: traZODone 50 MG Tab PO SCH (21:30)
[2017-06-19] MEDS: Albuterol/Ipratropium 3.0-0.5 MG/3 ML Neb Soln NEB SCH ×4 (05:52→22:42)
[2017-06-19] MEDS: VORICONAZOLE 200 MG PO SCH ×2 (06:10→18:49)
[2017-06-19 08:13] LABS: CHLORIDE,CL 109 mmol/L (98-115); SODIUM,NA 144 mmol/L (136-145)
[2017-06-19] MEDS: BREO ELLIPTA INH SCH (08:22)
[2017-06-19] MEDS: Cholecalciferol (Vitamin D3) 1,000 Unit Tab PO SCH (08:23)
[2017-06-19] MEDS: Cyanocobalamin (Vitamin B12) 500 MCG Tab PO SCH (08:23)
[2017-06-19] MEDS: Citalopram 20 MG Tab PO SCH (08:23)
[2017-06-19] MEDS ORDERED: Acetaminophen 325 MG Tab PO ONE (09:30)
[2017-06-19] MEDS ORDERED: diphenhydrAMINE 25 MG Cap PO ONE (09:30)
[2017-06-19] MEDS: Sodium Chloride 0.9% 250 ML IV SCH ×3 (11:16→20:48)
[2017-06-19] MEDS: LORazepam 0.5 MG Tab PO PRN ×2 (14:07→20:45)
--- NOTE | 2017-06-19 14:55 | PCM.PN ---
- General Info Date of Service: 06/19/17 Functional Status: Reports: Pain Controlled, Ambulating, Other (feeling a little stronger than yesterday and trying to walk around some) - Review of Systems General: Denies: Fever HEENT: Reports: No Symptoms Pulmonary: Reports: No Symptoms Cardiovascular: Denies: Chest Pain, Lightheadedness Gastrointestinal: Reports: Abdominal Pain (from all the chemo injections last week) Genitourinary: Reports: No Symptoms Musculoskeletal: Reports: No Symptoms Skin: Denies: Cyanosis, Jaundice, Mottled, Pallor, Diaphoresis Neurological: Denies: Confusion, Seizure, Syncope - Patient Data Vitals - Most Recent: Last Vital Signs Temp 98.8 F 06/19/17 12:35 Pulse 108 H 06/19/17 12:35 Resp 16 06/19/17 12:35 BP 83/37 L 06/19/17 12:35 Pulse Ox 95 06/19/17 10:30 Weight - Most Recent: 157 lb 11.2 oz I&O - Last 24 Hours: Intake & Output 06/18/17 06/19/17 06/19/17 22:59 06:59 14:59 Intake Total 9613 364 9029 Output Total 1150 1100 700 Balance -136 -430 485 Lab Results Last 24 Hours: Laboratory Results - last 24 hr 06/18/17 06/19/17 06/19/17 Range/Units 08:55 07:20 07:20 WBC 0.8 L* (5.0-10.0) 10^3/uL RBC 2.27 L (3.80-5.50) 10^6/uL Hgb 6.5 L* (12.0-16.0) g/dL Hct 20.1 L (37.0-47.0) % MCV 88.3 (82.0-92.0) fL MCH 28.6 (27.0-31.0) pg MCHC 32.4 (32.0-36.0) g/dL RDW 14.9 H (11.5-14.5) % Plt Count 3 L* (150-300) 10^3/uL MPV 5.1 L (7.4-10.4) fL Neut % (Auto) 25.2 L (50.0-70.0) % Lymph % (Auto) 71.4 H (20.0-40.0) % [place] % (Auto) 2.6 (2.0-8.0) % Eos % (Auto) 0.6 L (1.0-3.0) % Baso % (Auto) 0.2 (0.0-1.0) % Neut # (Auto) 0.2 L (2.5-7.0) 10^3/uL Lymph # (Auto) 0.6 L (1.0-4.0) 10^3/uL [place] # (Auto) 0.0 L (0.1-0.8) 10^3/uL Eos # (Auto) 0.0 L (0.1-0.3) 10^3/uL Baso # (Auto) 0.0 (0.0-0.1) 10^3/uL Sodium 144 (136-145) mmol/L Potassium 4.3 (3.3-5.3) mmol/L Chloride 109 (98-115) mmol/L Carbon Dioxide 26.8 (21.0-32.0) mmol/L BUN 14 (6-25) mg/dL Creatinine 0.65 (0.51-1.17) mg/dL Est Cr Clr Drug Dosing 74.31 mL/min Estimated GFR (MDRD) > 60 mL/min Glucose 113 H (70-110) mg/dL Calcium 8.4 L (8.7-10.3) mg/dL Vancomycin Trough (10-20) ug/mL Blood Type O POSITIVE Gel Antibody Screen Negative Crossmatch See Detail 06/19/17 Range/Units 12:00 WBC (5.0-10.0) 10^3/uL RBC (3.80-5.50) 10^6/uL Hgb (12.0-16.0) g/dL Hct (37.0-47.0) % MCV (82.0-92.0) fL MCH (27.0-31.0) pg MCHC (32.0-36.0) g/dL RDW (11.5-14.5) % Plt Count (150-300) 10^3/uL MPV (7.4-10.4) fL Neut % (Auto) (50.0-70.0) % Lymph % (Auto) (20.0-40.0) % [place] % (Auto) (2.0-8.0) % Eos % (Auto) (1.0-3.0) % Baso % (Auto) (0.0-1.0) % Neut # (Auto) (2.5-7.0) 10^3/uL Lymph # (Auto) (1.0-4.0) 10^3/uL [place] # (Auto) (0.1-0.8) 10^3/uL Eos # (Auto) (0.1-0.3) 10^3/uL Baso # (Auto) (0.0-0.1) 10^3/uL Sodium (136-145) mmol/L Potassium (3.3-5.3) mmol/L Chloride (98-115) mmol/L Carbon Dioxide (21.0-32.0) mmol/L BUN (6-25) mg/dL Creatinine (0.51-1.17) mg/dL Est Cr Clr Drug Dosing mL/min Estimated GFR (MDRD) mL/min Glucose (70-110) mg/dL Calcium (8.7-10.3) mg/dL Vancomycin Trough 10.9 (10-20) ug/mL Blood Type Gel Antibody Screen Crossmatch Manuel Results Last 24 Hours: Microbiology 06/17/17 21:45 Urine Culture - Final Urine, Bladder 06/17/17 21:05 Aerobic Blood Culture - Preliminary Blood - Venous NO GROWTH AFTER 1 DAY Anaerobic Blood Culture - Preliminary NO GROWTH AFTER 1 DAY 06/17/17 20:45 Aerobic Blood Culture - Preliminary Blood - Venous - Lab Draw NO GROWTH AFTER 1 DAY Anaerobic Blood Culture - Preliminary NO GROWTH AFTER 1 DAY Med Orders - Current: Current Medications Acetaminophen (Tylenol) 325 - 650 mg PO Q4H PRN PRN Reason: Pain Last Admin: 06/18/17 23:11 Dose: 650 mg Albuterol (Ventolin Hfa) 0 gm INH Q4H PRN PRN Reason: Shortness of Breath Albuterol/Ipratropium (Duoneb 3.0-0.5 Mg/3 Ml) 3 ml NEB TIDRT PRN PRN Reason: Shortness of Breath Last Admin: 06/18/17 00:58 Dose: 3 ml Albuterol/Ipratropium (Duoneb 3.0-0.5 Mg/3 Ml) 3 ml NEB Q6HRRT [facility] Last Admin: 06/19/17 11:09 Dose: 3 ml Cholecalciferol (Vitamin D3) 1,000 units PO DAILY [facility] Last Admin: 06/19/17 08:23 Dose: 1,000 units Citalopram Hydrobromide (Celexa) 10 mg PO DAILY [facility] Last Admin: 06/19/17 08:23 Dose: 10 mg Cyanocobalamin (Vitamin B12) 500 mcg PO DAILY [facility] Last Admin: 06/19/17 08:23 Dose: 500 mcg Levofloxacin/Dextrose 500 mg/ (Premix) 100 mls @ 100 mls/hr IV Q24H [facility] Last Admin: 06/18/17 21:30 Dose: 100 mls/hr Vancomycin HCl 1 gm/ Sodium (Chloride) 270 mls @ 180.367 mls/hr IV Q12H [facility] Last Admin: 06/19/17 13:12 Dose: 180.367 mls/hr Sodium Chloride (Normal Saline) 250 mls @ 20 mls/hr IV ASDIRECTED [facility] Last Admin: 06/19/17 11:16 Dose: 20 mls/hr Lorazepam (Ativan) 1 mg PO QID PRN PRN Reason: Anxiety Last Admin: 06/19/17 14:07 Dose: 1 mg Ondansetron HCl (Zofran Odt) 8 mg PO Q6H PRN PRN Reason: Nausea Ptom Breo Ellipta 200/25mcg Inhaler 1 each INH DAILY [facility] Last Admin: 06/19/17 08:22 Dose: 1 each Ptom Voriconazole 200 Mg Tablet 1 each PO Q12H [facility] Last Admin: 06/19/17 06:10 Dose: 1 each Polyethylene Glycol (Miralax) 17 gm PO DAILY PRN PRN Reason: Constipation Sodium Chloride (Syrex Flush) 5 ml FLUSH Q8HR PRN PRN Reason: Keep Vein Open Last Admin: 06/18/17 21:30 Dose: 5 ml Trazodone HCl (Trazodone) 50 - 100 mg PO BEDTIME [facility] Last Admin: 06/18/17 21:30 Dose: 50 mg Vancomycin HCl (Pharmacy To Dose - Vancomycin) 0 dose .XX ASDIRECTED [facility] Discontinued Medications Acetaminophen (Tylenol Extra Strength) 1,000 mg PO ONETIME ONE Stop: 06/17/17 20:45 Last Admin: 06/17/17 21:00 Dose: 1,000 mg Acetaminophen (Tylenol) 650 mg PO NOW ONE Stop: 06/18/17 09:26 Last Admin: 06/18/17 09:50 Dose: 650 mg Acetaminophen (Tylenol) 650 mg PO NOW ONE Stop: 06/19/17 09:31 Last Admin: 06/19/17 09:28 Dose: 650 mg Albuterol/Ipratropium (Duoneb 3.0-0.5 Mg/3 Ml) 3 ml NEB ONETIME ONE Stop: 06/17/17 20:52 Last Admin: 06/17/17 21:22 Dose: 3 ml Albuterol/Ipratropium (Duoneb 3.0-0.5 Mg/3 Ml) 3 ml NEB Q6HRRT [facility] Last Admin: 06/18/17 05:53 Dose: 3 ml Diphenhydramine HCl (Benadryl) 25 mg PO ONETIME ONE Stop: 06/18/17 09:26 Last Admin: 06/18/17 09:49 Dose: 25 mg Diphenhydramine HCl (Benadryl) 25 mg PO ONETIME ONE Stop: 06/19/17 09:31 Last Admin: 06/19/17 09:28 Dose: 25 mg Sodium Chloride (Normal Saline) 1,000 mls @ 999 mls/hr IV .BOLUS ONE Stop: 06/17/17 21:44 Last Admin: 06/17/17 21:00 Dose: 999 mls/hr Vancomycin HCl 1 gm/ Sodium (Chloride) 250 mls @ 167 mls/hr IV Q24H [facility] Last Admin: 06/18/17 00:09 Dose: 167 mls/hr Sodium Chloride (Normal Saline) 50 mls @ 200 mls/hr IV ASDIRECTED [facility] Stop: 06/18/17 11:00 Last Admin: 06/18/17 17:08 Dose: 200 mls/hr Vancomycin HCl 1 gm/ Sodium (Chloride) 270 mls @ 180.367 mls/hr IV Q12H [facility] Last Admin: 06/18/17 11:39 Dose: Not Given Iopamidol (Isovue-300 (61%)) 75 ml IV ONETIME ONE Stop: 06/18/17 08:21 Last Admin: 06/18/17 17:07 Dose: 75 ml Non-Formulary Medication (Citalopram Hydrobromide [Celexa]) 20 mg PO DAILY [facility] Sodium Chloride (Syrex Flush) 5 ml FLUSH Q8HR PRN PRN Reason: Keep Vein Open Trazodone HCl (Trazodone) 50 mg PO BEDTIME [facility] Last Admin: 06/17/17 23:44 Dose: 50 mg - Exam General: Alert, Oriented HEENT: Pupils Equal Lungs: Clear to Auscultation, Normal Respiratory Effort Cardiovascular: Regular Rate, Regular Rhythm GI/Abdominal Exam: Soft, Non-Tender, No Organomegaly, No Distention Extremities: Normal Inspection, Normal Range of Motion, Non-Tender, No Pedal Edema Skin: Warm, Dry, Intact - Problem List Review Problem List Initiated/Reviewed/Updated: No - Assessment Assessment:: Neutropenic fever. UTI. Thrombocytopenia. Anemia. MDS. Aspergillosis. Depression. Patient is feeling a little stronger today and seems in good spirits. Her labs have improved some with the platelets and PRBCs. More of each will be administered today and labs rechecked tomorrow. - Plan Plan:: Neutropenic fever. Tylenol PRN for fever. Continue vancomycin and levofloxacin until culture return and antibiotics can be tailored based on sensitivities. UTI. Antibiotics as above, urine culture pending. Thrombocytopenia. Platelets today (1 unit/6 pack), if her 2nd unit comes today will also give that as well. Anemia. Transfuse 1 unit PRBC's today. Daily labs, transfuse for hgb <7. MDS. Continue with chemotherapy per protocol. Aspergillosis. Will start her voriconazole. Depression. Continue with citalopram 10 mg PO daily and lorazepam PRN. above and in assessment.
[2017-06-19] MEDS: traZODone 50 MG Tab PO SCH (20:45)
[2017-06-19] MEDS: Levofloxacin/Dextrose 5%-Water 500 MG in Premix Bag 1 BAG IV SCH (20:48)
[2017-06-20] MEDS: Albuterol/Ipratropium 3.0-0.5 MG/3 ML Neb Soln NEB SCH ×4 (06:10→22:27)
[2017-06-20] MEDS: VORICONAZOLE 200 MG PO SCH ×2 (07:04→19:53)
[2017-06-20 07:54] LABS: CHLORIDE,CL 109 mmol/L (98-115); SODIUM,NA 145 mmol/L (136-145)
[2017-06-20] MEDS: Citalopram 20 MG Tab PO SCH (08:27)
[2017-06-20] MEDS: Cholecalciferol (Vitamin D3) 1,000 Unit Tab PO SCH (08:27)
[2017-06-20] MEDS: BREO ELLIPTA INH SCH (08:27)
[2017-06-20] MEDS: Cyanocobalamin (Vitamin B12) 500 MCG Tab PO SCH (08:27)
[2017-06-20] MEDS: Sodium Chloride 0.9% 5 ML Syringe FLUSH PRN (11:00)
--- NOTE | 2017-06-20 15:37 | PCM.PN ---
- General Info Date of Service: 06/20/17 Functional Status: Reports: Pain Controlled - Review of Systems General: Reports: Weakness (still feeling weak and no energy), Other (she is trying to drink a lot of water and eat but appetite isn't very good). Denies: Fever Pulmonary: Denies: Shortness of Breath Cardiovascular: Denies: Chest Pain, Lightheadedness Gastrointestinal: Denies: Abdominal Pain, Vomiting Genitourinary: Denies: Dysuria Musculoskeletal: Reports: No Symptoms Skin: Denies: Cyanosis, Jaundice, Mottled, Pallor, Diaphoresis Neurological: Denies: Confusion, Dizziness, Seizure, Syncope, Trouble Speaking Psychiatric: Denies: Confusion - Patient Data Vitals - Most Recent: Last Vital Signs Temp 98.7 F 06/20/17 11:00 Pulse 107 H 06/20/17 11:05 Resp 20 06/20/17 11:00 BP 130/59 L 06/20/17 11:00 Pulse Ox 98 06/20/17 11:05 Weight - Most Recent: 157 lb 11.2 oz I&O - Last 24 Hours: Intake & Output 06/20/17 06/20/17 06/20/17 06:59 14:59 22:59 Intake Total 480 315 Output Total 1300 Balance -820 315 Lab Results Last 24 Hours: Laboratory Results - last 24 hr 06/18/17 06/20/17 06/20/17 Range/Units 08:55 07:15 07:15 WBC 0.8 L* (5.0-10.0) 10^3/uL RBC 2.76 L (3.80-5.50) 10^6/uL Hgb 7.7 L (12.0-16.0) g/dL Hct 24.2 L (37.0-47.0) % MCV 87.9 (82.0-92.0) fL MCH 28.0 (27.0-31.0) pg MCHC 31.9 L (32.0-36.0) g/dL RDW 15.1 H (11.5-14.5) % Plt Count 14 L* (150-300) 10^3/uL MPV 6.4 L (7.4-10.4) fL Neut % (Auto) 19.6 L (50.0-70.0) % Lymph % (Auto) 77.0 H (20.0-40.0) % Giles % (Auto) 2.4 (2.0-8.0) % Eos % (Auto) 0.7 L (1.0-3.0) % Baso % (Auto) 0.3 (0.0-1.0) % Neut # (Auto) 0.2 L (2.5-7.0) 10^3/uL Lymph # (Auto) 0.6 L (1.0-4.0) 10^3/uL Giles # (Auto) 0.0 L (0.1-0.8) 10^3/uL Eos # (Auto) 0.0 L (0.1-0.3) 10^3/uL Baso # (Auto) 0.0 (0.0-0.1) 10^3/uL Sodium 145 (136-145) mmol/L Potassium 4.5 (3.3-5.3) mmol/L Chloride 109 (98-115) mmol/L Carbon Dioxide 27.3 (21.0-32.0) mmol/L BUN 17 (6-25) mg/dL Creatinine 0.71 (0.51-1.17) mg/dL Est Cr Clr Drug Dosing 68.03 mL/min Estimated GFR (MDRD) > 60 mL/min Glucose 101 (70-110) mg/dL Calcium 8.7 (8.7-10.3) mg/dL Blood Type O POSITIVE Gel Antibody Screen Negative Crossmatch See Detail Manuel Results Last 24 Hours: Microbiology 06/17/17 21:05 Aerobic Blood Culture - Preliminary Blood - Venous NO GROWTH AFTER 2 DAYS Anaerobic Blood Culture - Preliminary NO GROWTH AFTER 2 DAYS 06/17/17 20:45 Aerobic Blood Culture - Preliminary Blood - Venous - Lab Draw NO GROWTH AFTER 2 DAYS Anaerobic Blood Culture - Preliminary NO GROWTH AFTER 2 DAYS Med Orders - Current: Current Medications Acetaminophen (Tylenol) 325 - 650 mg PO Q4H PRN PRN Reason: Pain Last Admin: 06/18/17 23:11 Dose: 650 mg Albuterol (Ventolin Hfa) 0 gm INH Q4H PRN PRN Reason: Shortness of Breath Albuterol/Ipratropium (Duoneb 3.0-0.5 Mg/3 Ml) 3 ml NEB TIDRT PRN PRN Reason: Shortness of Breath Last Admin: 06/18/17 00:58 Dose: 3 ml Albuterol/Ipratropium (Duoneb 3.0-0.5 Mg/3 Ml) 3 ml NEB Q6HRRT [facility] Last Admin: 06/20/17 10:58 Dose: 3 ml Cholecalciferol (Vitamin D3) 1,000 units PO DAILY [facility] Last Admin: 06/20/17 08:27 Dose: 1,000 units Citalopram Hydrobromide (Celexa) 10 mg PO DAILY [facility] Last Admin: 06/20/17 08:27 Dose: 10 mg Cyanocobalamin (Vitamin B12) 500 mcg PO DAILY [facility] Last Admin: 06/20/17 08:27 Dose: 500 mcg Levofloxacin/Dextrose 500 mg/ (Premix) 100 mls @ 100 mls/hr IV Q24H [facility] Last Admin: 06/19/17 20:48 Dose: 100 mls/hr Sodium Chloride (Normal Saline) 250 mls @ 20 mls/hr IV ASDIRECTED [facility] Last Admin: 06/19/17 20:48 Dose: 20 mls/hr Vancomycin HCl 1 gm/ Sodium (Chloride) 270 mls @ 180.367 mls/hr IV Q12H [facility] Last Admin: 06/20/17 10:59 Dose: 180.367 mls/hr Lorazepam (Ativan) 1 mg PO QID PRN PRN Reason: Anxiety Last Admin: 06/19/17 20:45 Dose: 1 mg Ondansetron HCl (Zofran Odt) 8 mg PO Q6H PRN PRN Reason: Nausea Ptom Breo Ellipta 200/25mcg Inhaler 1 each INH DAILY [facility] Last Admin: 06/20/17 08:27 Dose: 1 each Ptom Voriconazole 200 Mg Tablet 1 each PO Q12H [facility] Last Admin: 06/20/17 07:04 Dose: 1 each Polyethylene Glycol (Miralax) 17 gm PO DAILY PRN PRN Reason: Constipation Last Admin: 06/19/17 17:12 Dose: 17 gm Sodium Chloride (Syrex Flush) 5 ml FLUSH Q8HR PRN PRN Reason: Keep Vein Open Last Admin: 06/20/17 11:00 Dose: 5 ml Trazodone HCl (Trazodone) 50 - 100 mg PO BEDTIME [facility] Last Admin: 06/19/17 20:45 Dose: 50 mg Vancomycin HCl (Pharmacy To Dose - Vancomycin) 0 dose .XX ASDIRECTED [facility] Discontinued Medications Acetaminophen (Tylenol Extra Strength) 1,000 mg PO ONETIME ONE Stop: 06/17/17 20:45 Last Admin: 06/17/17 21:00 Dose: 1,000 mg Acetaminophen (Tylenol) 650 mg PO NOW ONE Stop: 06/18/17 09:26 Last Admin: 06/18/17 09:50 Dose: 650 mg Acetaminophen (Tylenol) 650 mg PO NOW ONE Stop: 06/19/17 09:31 Last Admin: 06/19/17 09:28 Dose: 650 mg Albuterol/Ipratropium (Duoneb 3.0-0.5 Mg/3 Ml) 3 ml NEB ONETIME ONE Stop: 06/17/17 20:52 Last Admin: 06/17/17 21:22 Dose: 3 ml Albuterol/Ipratropium (Duoneb 3.0-0.5 Mg/3 Ml) 3 ml NEB Q6HRRT [facility] Last Admin: 06/18/17 05:53 Dose: 3 ml Diphenhydramine HCl (Benadryl) 25 mg PO ONETIME ONE Stop: 06/18/17 09:26 Last Admin: 06/18/17 09:49 Dose: 25 mg Diphenhydramine HCl (Benadryl) 25 mg PO ONETIME ONE Stop: 06/19/17 09:31 Last Admin: 06/19/17 09:28 Dose: 25 mg Sodium Chloride (Normal Saline) 1,000 mls @ 999 mls/hr IV .BOLUS ONE Stop: 06/17/17 21:44 Last Admin: 06/17/17 21:00 Dose: 999 mls/hr Vancomycin HCl 1 gm/ Sodium (Chloride) 250 mls @ 167 mls/hr IV Q24H [facility] Last Admin: 06/18/17 00:09 Dose: 167 mls/hr Sodium Chloride (Normal Saline) 50 mls @ 200 mls/hr IV ASDIRECTED [facility] Stop: 06/18/17 11:00 Last Admin: 06/18/17 17:08 Dose: 200 mls/hr Vancomycin HCl 1 gm/ Sodium (Chloride) 270 mls @ 180.367 mls/hr IV Q12H [facility] Last Admin: 06/18/17 11:39 Dose: Not Given Vancomycin HCl 1 gm/ Sodium (Chloride) 270 mls @ 180.367 mls/hr IV Q12H [facility] Last Admin: 06/20/17 01:07 Dose: 180.367 mls/hr Iopamidol (Isovue-300 (61%)) 75 ml IV ONETIME ONE Stop: 06/18/17 08:21 Last Admin: 06/18/17 17:07 Dose: 75 ml Non-Formulary Medication (Citalopram Hydrobromide [Celexa]) 20 mg PO DAILY [facility] Sodium Chloride (Syrex Flush) 5 ml FLUSH Q8HR PRN PRN Reason: Keep Vein Open Trazodone HCl (Trazodone) 50 mg PO BEDTIME [facility] Last Admin: 06/17/17 23:44 Dose: 50 mg - Exam Quality Assessment: Supplemental Oxygen General: Alert, Oriented HEENT: Pupils Equal, EOMI Lungs: Clear to Auscultation, Normal Respiratory Effort Cardiovascular: Regular Rate, Regular Rhythm GI/Abdominal Exam: Soft, Non-Tender, No Organomegaly, No Distention Back Exam: Normal Inspection Extremities: Normal Inspection, Non-Tender Skin: Warm, Dry, Intact Neurological: No New Focal Deficit Psy/Mental Status: Alert, Normal Affect, Normal Mood - Problem List Review Problem List Initiated/Reviewed/Updated: No - Assessment Assessment:: Neutropenic fever. UTI. Thrombocytopenia. Anemia. MDS. Aspergillosis. Depression. Patient is feeling a little stronger today and seems in good spirits. Her labs have improved some with the platelets and PRBCs. More of each will be administered today and labs rechecked tomorrow. 06-20-17 Platelets and hemoglobin are up from yesterday. She will work on water and food intake to boost her energy level. Will continue current regimen. - Plan Plan:: Neutropenic fever. Tylenol PRN for fever. Continue vancomycin and levofloxacin until culture return and antibiotics can be tailored based on sensitivities. UTI. Antibiotics as above, urine culture pending. Thrombocytopenia. Platelets today (1 unit/6 pack), if her 2nd unit comes today will also give that as well. Anemia. Transfuse 1 unit PRBC's today. Daily labs, transfuse for hgb <7. MDS. Continue with chemotherapy per protocol. Aspergillosis. Will start her voriconazole. Depression. Continue with citalopram 10 mg PO daily and lorazepam PRN. above and in assessment. 06-20-17 see assessment
[2017-06-20] MEDS: Levofloxacin/Dextrose 5%-Water 500 MG in Premix Bag 1 BAG IV SCH (21:36)
[2017-06-20] MEDS: LORazepam 0.5 MG Tab PO PRN (21:36)
[2017-06-20] MEDS: traZODone 50 MG Tab PO SCH (21:36)
[2017-06-21] MEDS: VORICONAZOLE 200 MG PO SCH (06:32)
[2017-06-21 06:36] VITALS: BP 106/53
[2017-06-21] MEDS: Albuterol/Ipratropium 3.0-0.5 MG/3 ML Neb Soln NEB SCH ×2 (06:42→11:19)
[2017-06-21 07:47] LABS: CHLORIDE,CL 109 mmol/L (98-115); SODIUM,NA 144 mmol/L (136-145)
[2017-06-21] MEDS: BREO ELLIPTA INH SCH (08:21)
[2017-06-21] MEDS: Cyanocobalamin (Vitamin B12) 500 MCG Tab PO SCH (08:21)
[2017-06-21] MEDS: Cholecalciferol (Vitamin D3) 1,000 Unit Tab PO SCH (08:21)
[2017-06-21] MEDS: Citalopram 20 MG Tab PO SCH (08:22)
--- NOTE | 2017-06-21 16:49 | DISCH ---
This is 72-year-old female who was admitted through the emergency room with a neutropenic fever on 06/17/2017. She was loera cultured. She was found to have a urinary tract infection and was treated with Levaquin as well as vancomycin. Prior to her discharge, on 06/15/2017, Dr. Evelin Ibarra did see her while she was getting her chemo. She was having no fevers at that time. She was treated prophylactically with azithromycin. She developed a fever on 06/17/2017 and presented to the emergency room. Chest x-ray showed a left upper lobe abnormality, which was originally reported as right upper lobe abnormality, but corrected. CT scan was performed on 06/18/2017, which showed a rapidly developing finding of a 2 cm ill-defined density, apical posterior segment of the left upper lobe. This was felt to be more infective in origin than neoplastic. This can be followed on an outpatient basis with chest x-ray. The patient has been on citalopram in the past. Her admission dosage of citalopram was 20 mg daily. This is reduced to 10 mg during her hospitalization and upon discharge due to the fact that there is risk with the use of the citalopram in addition to voriconazole, which is an antifungal that the patient has recently started taking. The patient was short of breath on admission, as well as having a productive cough with hemoptysis, this has improved. She has received 1 unit of platelets as well as 1 unit of packed RBCs. Her parameters for transfusion of platelets are less than 10 and a hemoglobin of less than 7. Dr. Evelin Ibarra has been in contact with the patient's geosciences professor, Dr. Granados, and he agreed with all findings. Dr. Granados was in agreement with all that was being done. The patient has been afebrile for greater than 24 hours. PHYSICAL EXAMINATION: VITAL SIGNS: Temp is 97.5, pulse is 80, respirations 18, blood pressure 106/53, O2 saturation is 92% on 2 L of oxygen. SKIN: Warm and dry to touch. Some ecchymotic areas are evident. CARDIAC: Reveals S1, S2 to be normal. Rate and rhythm are regular. No murmur, click, or gallop is auscultated. LUNGS: Clear without rales, wheezes, or rhonchi. There is minimal pedal edema. IMPRESSION: 1. Neutropenic fever. She has been afebrile for 24 hours. 2. Urinary tract infection. She is receiving Levaquin as well as vancomycin. She will receive one dose of vancomycin prior to discharge. She will be discharged on Levaquin 500 mg daily for 7 days. 3. Thrombocytopenia. She did receive platelets last on 06/20/2017. 4. Anemia. She did receive 1 unit of packed RBCs yesterday as well. 5. Myelodysplastic syndrome. Continue with chemotherapy per protocol. 6. Aspergillosis. She will continue with the voriconazole. 7. Depression. She will continue citalopram at a new dose of 10 mg daily. Lorazepam is being given on an as-needed basis. 8. New development of a 2 cm left upper lobe developing density which was felt to be infective in origin. This will be followed on an outpatient basis. The patient will follow up in one weeks time with Evelin Ibarra, who is her primary care provider. She has been urged to call the clinic or hospital with any concerns she may have. The patient is in agreement. She is extremely concerned in regard to the new finding on her chest x-ray and then confirmed with CAT scan. Reassurance was given. However, she will continue to worry this until followup studies are done. This will be left up to the discretion of Dr. Evelin Briones. I have spoken with Dr. Evelin Briones regarding the patient's condition and the plan for discharge and she is in agreement and suggestions taken for antibiotics placed into the patient's plan of care. /[id number]/MODL
== END 2017-06-21 13:40 | disposition home or self-care (01) | DRG 809 ==
LOC: KA.ED 20:24 → KA.MS 22:30
PROVIDERS: ADMIT Internal Medicine; ATTEND Internal Medicine
PROC: 30233N1 Transfusion of Nonautologous Red Blood Cells into Peripheral Vein, Percutaneous Approach (ICD-10-PCS; principal; 2017-06-18)
PROC: 30233R1 Transfusion of Nonautologous Platelets into Peripheral Vein, Percutaneous Approach (ICD-10-PCS; 2017-06-18)
DX: D70.9 Neutropenia, unspecified (principal); N39.0 Urinary tract infection, site not specified; B44.9 Aspergillosis, unspecified; R50.81 Fever presenting with conditions classified elsewhere; D69.6 Thrombocytopenia, unspecified; D64.9 Anemia, unspecified; D46.9 Myelodysplastic syndrome, unspecified; R91.8 Other nonspecific abnormal finding of lung field; I10 Essential (primary) hypertension; J44.9 Chronic obstructive pulmonary disease, unspecified; F41.8 Other specified anxiety disorders; Z88.0 Allergy status to penicillin; Z79.899 Other long term (current) drug therapy; Z86.718 Personal history of other venous thrombosis and embolism; Z87.891 Personal history of nicotine dependence
CPT/HCPCS: 36415; 36430; 71046; 71260; 80048; 80053; 80202; 81001; 83605; 85025; 86850; 86900; 86901; 86920; 86922; 87040; 87070; 87086; 87088; 87205; 94640; 96360; 99285; A9270-GY; J1956; J3370; J7030; J7050; P9016; P9034; Q9967

== ENCOUNTER 2017-08-02 10:30 | Inpatient (IN) | payer MEDICARE ==
[2017-08-02] MEDS ORDERED: Acetaminophen 500 MG Tab PO ONE (11:22)
[2017-08-02] MEDS ORDERED: Ondansetron 4 MG/2 ML SDV IVPUSH ONE (11:22)
--- NOTE | 2017-08-02 11:22 | EDM.PDOC ---
ED HPI GENERAL MEDICAL PROBLEM - General Chief Complaint: Fever Stated Complaint: not feeling good Time Seen by Provider: 08/02/17 11:00 Source of Information: Reports: Patient History Limitations: Reports: No Limitations - History of Present Illness INITIAL COMMENTS - FREE TEXT/NARRATIVE: 72 YO WF presents to ER with fever and generalized malaise with associated nonproductive cough x 1 day. Pt reports mild amount of hemoptysis and increased shortness of breath. Pt denies chest pain or vomiting. Pt denies any rectal bleeding or hematuria. Pt has MDS and had her blood drawn this am. Hgb 7.6 [place] [address]. Onset Date: 08/01/17 Duration: Day(s): (1) Location: Reports: Generalized Severity: Mild Improves with: Reports: Rest Worsens with: Reports: Movement Associated Symptoms: Reports: Cough, Fever/Chills, Loss of Appetite, Malaise, Nausea/Vomiting, Shortness of Breath, Weakness. Denies: Confusion, Chest Pain, cough w sputum, Diaphoresis, Headaches, Rash, Seizure, Syncope - Related Data Allergies Allergy/AdvReac Type Severity Reaction Status Date / Time Penicillins Allergy Respiratory Verified 08/02/17 10:37 Distress Home Meds: Home Meds traZODone HCl [Trazodone HCl] 50 - 100 mg PO BEDTIME 09/08/16 [History] Cholecalciferol (Vitamin D3) [Vitamin D3] 1,000 units PO DAILY 12/09/16 [History ] Cyanocobalamin (Vitamin B12) [Vitamin B12] 500 mcg PO DAILY 12/09/16 [History] Fluticasone/Vilanterol [Breo Ellipta 200-25 Mcg INH] 1 puff INH DAILY 12/29/16 [ History] Ondansetron HCl [Ondansetron] 8 mg PO Q6H PRN 02/15/17 [History] Albuterol [Ventolin HFA] 1 - 2 puff INH Q4HR PRN 04/19/17 [History] Polyethylene Glycol 3350 [Miralax] 17 gram PO DAILY PRN 06/08/17 [History] LORazepam 1 mg PO QID PRN 06/11/17 [History] Voriconazole 200 mg PO BID 06/11/17 [History] Albuterol/Ipratropium [DuoNeb 3.0-0.5 MG/3 ML] 3 ml NEB Q6HRRT PRN 06/18/17 [ History] Acetaminophen [Tylenol] 325 - 650 mg PO Q4H PRN tablet 06/21/17 [Rx] Albuterol/Ipratropium [DuoNeb 3.0-0.5 MG/3 ML] 3 ml NEB TIDRT PRN neb 06/21/17 [Rx] DULoxetine [Cymbalta] 30 mg PO DAILY 08/02/17 [History] Past Medical History HEENT History: Reports: Impaired Vision Cardiovascular History: Reports: Blood Clots/VTE/DVT, Hypertension, SOB on Exertion Respiratory History: Reports: COPD, SOB, Other (See Below) Other Respiratory History: Home oxygen prn, fungal lung infection. Gastrointestinal History: Reports: Chronic Diarrhea Genitourinary History: Reports: None [employer] History: Reports: Musculoskeletal History: Reports: Arthritis Neurological History: Reports: None Psychiatric History: Reports: Addiction, Anxiety, Depression, Panic Attack Hematologic History: Reports: Other (See Below) Other Hematologic History: MDS, standing orders for platelet and PRBC transfusions. Immunologic History: Reports: Immunosuppression Oncologic (Cancer) History: Reports: Other (See Below) Other Oncologic History: MDS Dermatologic History: Reports: Psoriasis - Infectious Disease History Infectious Disease History: Reports: Chicken Pox, Measles, Mumps, Shingles - Past Surgical History HEENT Surgical History: Reports: None Cardiovascular Surgical History: Reports: None Respiratory Surgical History: Reports: None GI Surgical History: Reports: Cholecystectomy, Colonoscopy, EGD Female Surgical History: Reports: Hysterectomy Musculoskeletal Surgical History: Reports: None Other Oncologic Surgeries/Procedures: Bone Marrow Biopsy completed first week of March 2017. Dermatological Surgical History: Reports: None Social & Family History - Family History Family Medical History: Noncontributory - Caffeine Use Caffeine Use: Reports: Coffee, Soda, Tea ED ROS GENERAL - Review of Systems Review Of Systems: See Below Constitutional: Reports: Fever, Chills, Malaise, Weakness, Fatigue HEENT: Reports: No Symptoms Respiratory: Reports: Shortness of Breath, Cough, Hemoptysis Cardiovascular: Reports: No Symptoms Endocrine: Reports: No Symptoms GI/Abdominal: Reports: Nausea : Reports: No Symptoms Musculoskeletal: Reports: No Symptoms Skin: Reports: No Symptoms Neurological: Reports: No Symptoms Psychiatric: Reports: No Symptoms Hematologic/Lymphatic: Reports: No Symptoms Immunologic: Reports: No Symptoms ED EXAM, GENERAL - Physical Exam Exam: See Below Exam Limited By: No Limitations General Appearance: Alert, WD/WN, No Apparent Distress Head: Atraumatic, Normocephalic Neck: Normal Inspection, Supple, Non-Tender, Full Range of Motion Respiratory/Chest: No Respiratory Distress, No Accessory Muscle Use, Chest Non- Tender, Crackles. No: Respiratory Distress, Decreased Breath Sounds, Rales, Rhonchi, Wheezing, Stridor, Pleural Rub, Accessory Muscle Use, Retractions, Splinting, Prolonged Expiration Cardiovascular: Normal Peripheral Pulses, Regular Rate, Rhythm, No Edema, No Gallop, No JVD, No Murmur, No Rub GI/Abdominal: Normal Bowel Sounds, Soft, Non-Tender, No Organomegaly, No Distention, No Abnormal Bruit, No Mass Back Exam: Normal Inspection, Full Range of Motion, NT Extremities: Normal Inspection, Normal Range of Motion, Non-Tender, Normal Capillary Refill, No Pedal Edema Neurological: Alert, Oriented, CN II-XII Intact, Normal Cognition, Normal Gait, Normal Reflexes, No Motor/Sensory Deficits Psychiatric: Normal Affect, Normal Mood Skin Exam: Warm, Dry, Intact, Normal Color, No Rash Lymphatic: No Adenopathy Course - Vital Signs Last Recorded V/S: Last Vital Signs Temp 38.4 C H 08/02/17 12:28 Pulse 98 08/02/17 11:59 Resp 18 08/02/17 11:59 BP 95/34 L 08/02/17 11:59 Pulse Ox 92 L 08/02/17 11:59 - Orders/Labs/Meds Orders: Active Orders 24 hr Category Date Time Status RT Aerosol Therapy [RC] ASDIRECTED Care 08/02/17 11:31 Active Chest 2V [CR] Stat Exams 08/02/17 10:52 Taken CULTURE BLOOD [BC] Stat Lab 08/02/17 11:15 Received CULTURE BLOOD [BC] Stat Lab 08/02/17 11:55 Received RESPIRATORY CULT [MREF] Routine Lab 08/02/17 11:43 Received URINALYSIS W/MICROSCOPIC [UA W/MICROSCOPIC] [URIN] Stat Lab 08/02/17 10:52 Ordered Sodium Chloride 0.9% [Normal Saline] 1,000 ml Med 08/02/17 12:30 Active IV ASDIRECTED Blood Culture x2 Reflex Set [OM.PC] Stat Oth 08/02/17 10:51 Ordered Medication Orders Sodium Chloride (Normal Saline) 1,000 mls @ 125 mls/hr IV ASDIRECTED [facility] Last Admin: 08/02/17 12:26 Dose: 125 mls/hr Labs: Laboratory Tests 08/02/17 08/02/17 08/02/17 Range/Units 10:52 11:15 11:15 Sodium 140 (136-145) mmol/L Potassium 4.1 (3.3-5.3) mmol/L Chloride 104 (98-115) mmol/L Carbon Dioxide 23.3 (21.0-32.0) mmol/L BUN 22 (6-25) mg/dL Creatinine 0.78 (0.51-1.17) mg/dL Est Cr Clr Drug Dosing 61.93 mL/min Estimated GFR (MDRD) > 60 mL/min Glucose 116 H (70-110) mg/dL Lactic Acid 1.5 (0.4-2.0) mmol/L Calcium 8.4 L (8.7-10.3) mg/dL Total Bilirubin 1.6 H (0.2-1.0) mg/dL AST 8 L (15-37) U/L ALT 14 (12-78) U/L Alkaline Phosphatase 41 L (46-116) IU/L Total Protein 6.8 (6.4-8.2) g/dL Albumin 3.97 (3.00-4.80) g/dL Specimen Type Urincc Urine Color Yellow (YELLOW) Urine Appearance Clear (CLEAR) Urine pH 5.0 (5.0-9.0) Ur Specific [place] 1.020 (1.005-1.030) Urine Protein Trace H (NEGATIVE) mg/dL Urine Glucose (UA) Negative (NEGATIVE) mg/dL Urine Ketones Trace H (NEGATIVE) mg/dL Urine Occult Blood Negative (NEGATIVE) Urine Nitrite Negative (NEGATIVE) Urine Bilirubin Small H (NEGATIVE) Urine Urobilinogen 0.2 (0.2-1.0) E.U./dL Ur Leukocyte Esterase Negative (NEGATIVE) Urine RBC 0-5 /HPF Urine WBC 0-5 /HPF Ur Epithelial Cells Few /LPF Urine Bacteria Few (NONE TO FEW) /HPF Meds: Medications Generic Name Dose Route Start Last Admin Trade Name Freq PRN Reason Stop Dose Admin Sodium Chloride 1,000 mls @ 125 mls/hr 08/02/17 12:30 08/02/17 12:26 Normal Saline IV 125 mls/hr ASDIRECTED [facility] Administration Discontinued Medications Generic Name Dose Route Start Last Admin Trade Name Lexy PRN Reason Stop Dose Admin Acetaminophen 1,000 mg 08/02/17 11:22 08/02/17 11:30 Tylenol Extra Strength PO 08/02/17 11:23 1,000 mg ONETIME ONE Administration Albuterol/Ipratropium 3 ml 08/02/17 11:30 08/02/17 11:37 Duoneb 3.0-0.5 Mg/3 Ml NEB 08/02/17 11:31 3 ml ONETIME ONE Administration Sodium Chloride 1,000 mls @ 999 mls/hr 08/02/17 11:38 08/02/17 11:07 Normal Saline IV 08/02/17 12:38 999 mls/hr .BOLUS ONE Administration Ondansetron HCl 4 mg 08/02/17 11:22 08/02/17 11:31 Zofran IVPUSH 08/02/17 11:23 4 mg ONETIME ONE Administration - Radiology Interpretation Free Text/Narrative:: CXR- NAD Departure - Departure Time of Disposition: 12:29 Disposition: Admitted As Inpatient 67 Condition: Fair Clinical Impression: Thrombocytopenia, Leukopenia Anemia Qualifiers: Anemia type: other cause Fever Qualifiers: Fever type: unspecified Qualified Code(s): R50.9 - Fever, unspecified - Discharge Information Referrals: Evelin Briones MD [Primary Care Provider] - Forms: ED Department Discharge, ED Department Discharge - My Orders Last 24 Hours: My Active Orders 08/02/17 10:51 Blood Culture x2 Reflex Set [OM.PC] Stat 08/02/17 10:52 Chest 2V [CR] Stat URINALYSIS W/MICROSCOPIC [UA W/MICROSCOPIC] [URIN] Stat 08/02/17 11:15 CULTURE BLOOD [BC] Stat 08/02/17 11:31 RT Aerosol Therapy [RC] ASDIRECTED 08/02/17 11:43 RESPIRATORY CULT [MREF] Routine 08/02/17 11:55 CULTURE BLOOD [BC] Stat 08/02/17 12:30 Sodium Chloride 0.9% [Normal Saline] 1,000 ml IV ASDIRECTED - Assessment/Plan Last 24 Hours: My Active Orders 08/02/17 10:51 Blood Culture x2 Reflex Set [OM.PC] Stat 08/02/17 10:52 Chest 2V [CR] Stat URINALYSIS W/MICROSCOPIC [UA W/MICROSCOPIC] [URIN] Stat 08/02/17 11:15 CULTURE BLOOD [BC] Stat 08/02/17 11:31 RT Aerosol Therapy [RC] ASDIRECTED 08/02/17 11:43 RESPIRATORY CULT [MREF] Routine 08/02/17 11:55 CULTURE BLOOD [BC] Stat 08/02/17 12:30 Sodium Chloride 0.9% [Normal Saline] 1,000 ml IV ASDIRECTED Assessment:: 1. Fever 2. Leukopenia 3. Thrombocytopenia 4. Anemia Plan: 1. Admit- Dr Ibarra 2. Vanco/Levaquin 3. IVF NS@125cc/hr 4. supportive care
[2017-08-02] MEDS ORDERED: Albuterol/Ipratropium 3.0-0.5 MG/3 ML Neb Soln NEB ONE (11:30)
[2017-08-02] MEDS ORDERED: Sodium Chloride 0.9% 1,000 ML IV ONE (11:38)
[2017-08-02 11:53] LABS: CHLORIDE,CL 104 mmol/L (98-115); SODIUM,NA 140 mmol/L (136-145)
[2017-08-02] MEDS ORDERED: Sodium Chloride 0.9% 1,000 ML IV SCH ×2 (12:30→13:00)
[2017-08-02] MEDS ORDERED: Ondansetron 4 MG/2 ML SDV IV PRN (12:53)
[2017-08-02] MEDS ORDERED: Acetaminophen 325 MG Tab PO PRN ×2 (12:53→16:02)
[2017-08-02] MEDS ORDERED: Albuterol/Ipratropium 3.0-0.5 MG/3 ML Neb Soln NEB PRN ×2 (12:53→16:02)
[2017-08-02] MEDS: Levofloxacin/Dextrose 5%-Water 500 MG in Premix Bag 1 BAG IV SCH (13:38)
[2017-08-02] MEDS ORDERED: Polyethylene Glycol 3350 Powder 17 GM Packet PO PRN (16:02)
[2017-08-02] MEDS ORDERED: Albuterol HFA 18 Gm Inhaler INH PRN (16:02)
[2017-08-02] MEDS ORDERED: Ondansetron 4 MG Tab.DIS PO PRN (16:02)
[2017-08-02] MEDS: VORICONAZOLE 200 MG PO SCH (22:09)
[2017-08-02] MEDS: Cholecalciferol (Vitamin D3) 1,000 Unit Tab PO SCH (22:09)
[2017-08-02] MEDS: Cyanocobalamin (Vitamin B12) 500 MCG Tab PO SCH (22:10)
[2017-08-02] MEDS: traZODone 50 MG Tab PO SCH (22:10)
[2017-08-03] MEDS: Albuterol/Ipratropium 3.0-0.5 MG/3 ML Neb Soln NEB PRN ×2 (06:31→16:32)
[2017-08-03 08:12] LABS: CHLORIDE,CL 109 mmol/L (98-115); SODIUM,NA 142 mmol/L (136-145)
[2017-08-03] MEDS: DULoxetine 30 MG Cap PO SCH (08:23)
[2017-08-03] MEDS: VORICONAZOLE 200 MG PO SCH ×2 (08:24→21:27)
[2017-08-03] MEDS ORDERED: Acetaminophen 325 MG Tab PO SCH (08:45)
[2017-08-03] MEDS ORDERED: diphenhydrAMINE 25 MG Cap PO SCH (08:45)
--- NOTE | 2017-08-03 09:11 | PCM.PN ---
- General Info Date of Service: 08/03/17 Admission Dx/Problem (Free Text): Neutropenic fever. Subjective Update: Phyllis is seen today on inpatient rounds. She states she is feeling a lot better today. She was admitted 08/02/17 with neutropenic fever. Temp at home was 100.4 , WBC was 2.1 on admission but today is 1.8. Platelets dropped from 13 to 12 and hemoglobin down from 7 to 6.1. BMP largely unremarkable. She has been afebrile here. UA negative. [place] cultures pending. CXR negative. She is on IVF's and was started on levofloxacin and vancomycin avoiding zosyn due to her PCN allergy. She is on voriconazole as an outpatient for treatment of pulmonary aspergillosis. She recently started on duloxetine due to depression worsening after discontinuing citalopram for depression due to medication interaction with her voriconazole. She has no other concerns at this time. - Patient Data Vitals - Most Recent: Last Vital Signs Temp 98.5 F 08/03/17 06:35 Pulse 76 08/03/17 06:35 Resp 18 08/03/17 06:35 BP 97/41 L 08/03/17 06:35 Pulse Ox 98 08/03/17 06:35 Weight - Most Recent: 156 lb 3.2 oz I&O - Last 24 Hours: Intake & Output 08/02/17 08/03/17 08/03/17 22:59 06:59 14:59 Intake Total 740 420 Output Total 500 900 Balance 240 -480 Lab Results Last 24 Hours: Laboratory Results - last 24 hr 08/02/17 08/02/17 08/02/17 Range/Units 10:52 11:15 11:15 WBC (5.0-10.0) 10^3/uL RBC (3.80-5.50) 10^6/uL Hgb (12.0-16.0) g/dL Hct (37.0-47.0) % MCV (82.0-92.0) fL MCH (27.0-31.0) pg MCHC (32.0-36.0) g/dL RDW (11.5-14.5) % Plt Count (150-300) 10^3/uL MPV Neut % (Auto) (50.0-70.0) % Lymph % (Auto) (20.0-40.0) % [place] % (Auto) (2.0-8.0) % Eos % (Auto) (1.0-3.0) % Baso % (Auto) (0.0-1.0) % Neut # (Auto) (2.5-7.0) 10^3/uL Lymph # (Auto) (1.0-4.0) 10^3/uL [place] # (Auto) (0.1-0.8) 10^3/uL Eos # (Auto) (0.1-0.3) 10^3/uL Baso # (Auto) (0.0-0.1) 10^3/uL Sodium 140 (136-145) mmol/L Potassium 4.1 (3.3-5.3) mmol/L Chloride 104 (98-115) mmol/L Carbon Dioxide 23.3 (21.0-32.0) mmol/L BUN 22 (6-25) mg/dL Creatinine 0.78 (0.51-1.17) mg/dL Est Cr Clr Drug Dosing 61.93 mL/min Estimated GFR (MDRD) > 60 mL/min Glucose 116 H (70-110) mg/dL Lactic Acid 1.5 (0.4-2.0) mmol/L Calcium 8.4 L (8.7-10.3) mg/dL Total Bilirubin 1.6 H (0.2-1.0) mg/dL AST 8 L (15-37) U/L ALT 14 (12-78) U/L Alkaline Phosphatase 41 L (46-116) IU/L Total Protein 6.8 (6.4-8.2) g/dL Albumin 3.97 (3.00-4.80) g/dL Specimen Type Urincc Urine Color Yellow (YELLOW) Urine Appearance Clear (CLEAR) Urine pH 5.0 (5.0-9.0) Ur Specific [place] 1.020 (1.005-1.030) Urine Protein Trace H (NEGATIVE) mg/dL Urine Glucose (UA) Negative (NEGATIVE) mg/dL Urine Ketones Trace H (NEGATIVE) mg/dL Urine Occult Blood Negative (NEGATIVE) Urine Nitrite Negative (NEGATIVE) Urine Bilirubin Small H (NEGATIVE) Urine Urobilinogen 0.2 (0.2-1.0) E.U./dL Ur Leukocyte Esterase Negative (NEGATIVE) Urine RBC 0-5 /HPF Urine WBC 0-5 /HPF Ur Epithelial Cells Few /LPF Urine Bacteria Few (NONE TO FEW) /HPF 08/03/17 08/03/17 Range/Units 07:20 07:20 WBC 1.8 L* (5.0-10.0) 10^3/uL RBC 1.99 L (3.80-5.50) 10^6/uL Hgb 6.1 L* D (12.0-16.0) g/dL Hct 18.7 L* (37.0-47.0) % MCV 93.7 H (82.0-92.0) fL MCH 30.5 (27.0-31.0) pg MCHC 32.5 (32.0-36.0) g/dL RDW 21.0 H (11.5-14.5) % Plt Count 12 L* (150-300) 10^3/uL MPV TNP Neut % (Auto) 33.9 L (50.0-70.0) % Lymph % (Auto) 61.6 H (20.0-40.0) % [place] % (Auto) 4.1 (2.0-8.0) % Eos % (Auto) 0.2 L (1.0-3.0) % Baso % (Auto) 0.2 (0.0-1.0) % Neut # (Auto) 0.6 L (2.5-7.0) 10^3/uL Lymph # (Auto) 1.1 (1.0-4.0) 10^3/uL [place] # (Auto) 0.1 (0.1-0.8) 10^3/uL Eos # (Auto) 0.0 L (0.1-0.3) 10^3/uL Baso # (Auto) 0.0 (0.0-0.1) 10^3/uL Sodium 142 (136-145) mmol/L Potassium 4.7 (3.3-5.3) mmol/L Chloride 109 (98-115) mmol/L Carbon Dioxide 23.9 (21.0-32.0) mmol/L BUN 20 (6-25) mg/dL Creatinine 0.66 (0.51-1.17) mg/dL Est Cr Clr Drug Dosing 73.19 mL/min Estimated GFR (MDRD) > 60 mL/min Glucose 144 H (70-110) mg/dL Lactic Acid (0.4-2.0) mmol/L Calcium 8.2 L (8.7-10.3) mg/dL Total Bilirubin (0.2-1.0) mg/dL AST (15-37) U/L ALT (12-78) U/L Alkaline Phosphatase (46-116) IU/L Total Protein (6.4-8.2) g/dL Albumin (3.00-4.80) g/dL Specimen Type Urine Color (YELLOW) Urine Appearance (CLEAR) Urine pH (5.0-9.0) Ur Specific [place] (1.005-1.030) Urine Protein (NEGATIVE) mg/dL Urine Glucose (UA) (NEGATIVE) mg/dL Urine Ketones (NEGATIVE) mg/dL Urine Occult Blood (NEGATIVE) Urine Nitrite (NEGATIVE) Urine Bilirubin (NEGATIVE) Urine Urobilinogen (0.2-1.0) E.U./dL Ur Leukocyte Esterase (NEGATIVE) Urine RBC /HPF Urine WBC /HPF Ur Epithelial Cells /LPF Urine Bacteria (NONE TO FEW) /HPF Manuel Results Last 24 Hours: Microbiology 08/02/17 11:43 - Final Sputum - Expectorated 08/02/17 11:50 Influenza Type A Antigen Screen - Final Nasal, Unspecified NEGATIVE INFLUENZA A VIRUS AG Influenza Type B Antigen Screen - Final NEGATIVE INFLUENZA B VIRUS AG Med Orders - Current: Current Medications Acetaminophen (Tylenol) 325 - 650 mg PO Q4H PRN PRN Reason: Pain Last Admin: 08/02/17 19:11 Dose: 650 mg Acetaminophen (Tylenol) 650 mg PO ONETIME [facility] Albuterol (Ventolin Hfa) 0 gm INH Q4HR PRN PRN Reason: Shortness of Breath Albuterol/Ipratropium (Duoneb 3.0-0.5 Mg/3 Ml) 3 ml NEB Q6HRRT PRN PRN Reason: Dyspnea Last Admin: 08/03/17 06:31 Dose: 3 ml Cholecalciferol (Vitamin D3) 1,000 units PO BEDTIME [facility] Last Admin: 08/02/17 22:09 Dose: 1,000 units Cyanocobalamin (Vitamin B12) 500 mcg PO BEDTIME [facility] Last Admin: 08/02/17 22:10 Dose: 500 mcg Diphenhydramine HCl (Benadryl) 25 mg PO ONETIME [facility] Duloxetine HCl (Cymbalta) 30 mg PO DAILY [facility] Last Admin: 08/03/17 08:23 Dose: 30 mg Levofloxacin/Dextrose 500 mg/ (Premix) 100 mls @ 100 mls/hr IV Q24H [facility] Last Admin: 08/02/17 13:38 Dose: 100 mls/hr Vancomycin HCl 1 gm/ Sodium (Chloride) 270 mls @ 180 mls/hr IV Q12H [facility] Last Admin: 08/03/17 02:55 Dose: 180 mls/hr Lorazepam (Ativan) 1 mg PO QID PRN PRN Reason: Anxiety Ondansetron HCl (Zofran Odt) 8 mg PO Q6H PRN PRN Reason: Nausea Ptom Voriconazole 200 Mg Tablet 1 each PO BID [facility] Last Admin: 08/03/17 08:24 Dose: 1 each Polyethylene Glycol (Miralax) 17 gm PO DAILY PRN PRN Reason: Constipation Trazodone HCl (Trazodone) 50 - 100 mg PO BEDTIME [facility] Last Admin: 08/02/17 22:10 Dose: 50 mg Vancomycin HCl (Pharmacy To Dose - Vancomycin) 1 dose .XX ASDIRECTED [facility] Discontinued Medications Acetaminophen (Tylenol Extra Strength) 1,000 mg PO ONETIME ONE Stop: 08/02/17 11:23 Last Admin: 08/02/17 11:30 Dose: 1,000 mg Albuterol/Ipratropium (Duoneb 3.0-0.5 Mg/3 Ml) 3 ml NEB ONETIME ONE Stop: 08/02/17 11:31 Last Admin: 08/02/17 11:37 Dose: 3 ml Albuterol/Ipratropium (Duoneb 3.0-0.5 Mg/3 Ml) 3 ml NEB Q4H PRN PRN Reason: Shortness Of Breath/wheezing Sodium Chloride (Normal Saline) 1,000 mls @ 999 mls/hr IV .BOLUS ONE Stop: 08/02/17 12:38 Last Admin: 08/02/17 11:07 Dose: 999 mls/hr Sodium Chloride (Normal Saline) 1,000 mls @ 125 mls/hr IV ASDIRECTED [facility] Last Admin: 08/02/17 12:26 Dose: 125 mls/hr Ondansetron HCl (Zofran) 4 mg IVPUSH ONETIME ONE Stop: 08/02/17 11:23 Last Admin: 08/02/17 11:31 Dose: 4 mg - Exam Quality Assessment: Supplemental Oxygen General: Alert, Oriented, Cooperative, No Acute Distress Lungs: Decreased Breath Sounds (Dimished breath sounds at the apices, otherwise clear throughout.) Cardiovascular: Regular Rate, Regular Rhythm, Murmurs (2/6 systolic murmur.) GI/Abdominal Exam: Normal Bowel Sounds, Soft, Non-Tender - Problem List & Annotations (1) Pancytopenia SNOMED Code(s): 831226221 Code(s): D61.818 - OTHER PANCYTOPENIA Status: Acute Current Visit: Yes (2) MDS (myelodysplastic syndrome) SNOMED Code(s): 998867215 Code(s): D46.9 - MYELODYSPLASTIC SYNDROME, UNSPECIFIED Status: Acute Current Visit: No (3) Neutropenic fever SNOMED Code(s): 548164701 Code(s): D70.9 - NEUTROPENIA, UNSPECIFIED; R50.81 - FEVER PRESENTING WITH CONDITIONS CLASSIFIED ELSEWHERE Status: Acute Current Visit: No (4) COPD (chronic obstructive pulmonary disease) SNOMED Code(s): 53270970 Code(s): J44.9 - CHRONIC OBSTRUCTIVE PULMONARY DISEASE, UNSPECIFIED Status : Chronic Current Visit: No - Problem List Review Problem List Initiated/Reviewed/Updated: Yes - My Orders Last 24 Hours: My Active Orders 08/02/17 16:02 Acetaminophen [Tylenol] 325 - 650 mg PO Q4H PRN Albuterol [Ventolin HFA] 0 gm INH Q4HR PRN Albuterol/Ipratropium [DuoNeb 3.0-0.5 MG/3 ML] 3 ml NEB Q6HRRT PRN LORazepam [Ativan] 1 mg PO QID PRN Ondansetron [Zofran ODT] 8 mg PO Q6H PRN Polyethylene Glycol 3350 [MiraLAX] 17 gm PO DAILY PRN 08/02/17 21:00 Cholecalciferol (Vitamin D3) [Vitamin D3] 1,000 units PO BEDTIME Cyanocobalamin (Vitamin B12) [Vitamin B12] 500 mcg PO BEDTIME Patient's Own Medication [Ptom] 1 each PO BID traZODone 50 - 100 mg PO BEDTIME 08/03/17 08:36 RED BLOOD CELLS LP [BBK] Routine TYPE AND SCREEN [BBK] Routine Transfuse Red Blood Cells [COMM] Routine 08/03/17 08:37 Verify Patient Consent Obtain [RC] ASDIRECTED 08/03/17 08:45 Acetaminophen [Tylenol] 650 mg PO ONETIME diphenhydrAMINE [Benadryl] 25 mg PO ONETIME 08/03/17 09:00 DULoxetine [Cymbalta] 30 mg PO DAILY Fluticasone/Vilanterol [Breo Ellipta 200-25 MCG Inhalation Kit] 1 each IH DAILY 08/04/17 14:30 VANCOMYCIN TROUGH [CHEM] Routine - Assessment Assessment:: Neutropenic fever. MDS. Pancytopenia. Depression. COPD. - Plan Plan:: Neutropenic fever. Continue levofloxacin and vancomycin until cultures are negative. MDS. Continue chemotherapy per outpatient schedule. Pancytopenia. Per standing orders, will administer PRBC's 2 units today. Repeat CBC and BMP in the AM. Depression. Continue duloxetine. COPD. Continue oxygen and outpatient inhalation regimen.
[2017-08-03] MEDS: Fluticasone/Vilanterol 200 MCG/25 MCG Inhalation Powder Kit of 14 IH SCH (09:56)
[2017-08-03] MEDS ORDERED: Sodium Chloride 0.9% 250 ML IV SCH (10:30)
[2017-08-03] MEDS ORDERED: Nicotine Polacrilex 4 MG Gum CHEW PRN (12:58)
[2017-08-03] MEDS: LORazepam 0.5 MG Tab PO PRN (20:22)
[2017-08-03] MEDS: Levofloxacin/Dextrose 5%-Water 500 MG in Premix Bag 1 BAG IV SCH (20:24)
[2017-08-03] MEDS: traZODone 50 MG Tab PO SCH (21:26)
[2017-08-03] MEDS: Cholecalciferol (Vitamin D3) 1,000 Unit Tab PO SCH (21:26)
[2017-08-03] MEDS: Cyanocobalamin (Vitamin B12) 500 MCG Tab PO SCH (21:26)
[2017-08-04] MEDS: Levofloxacin/Dextrose 5%-Water 500 MG in Premix Bag 1 BAG IV SCH ×2 (03:15→13:03)
[2017-08-04] MEDS: Fluticasone/Vilanterol 200 MCG/25 MCG Inhalation Powder Kit of 14 IH SCH ×2 (07:54→08:59)
[2017-08-04] MEDS: DULoxetine 30 MG Cap PO SCH ×2 (07:54→09:17)
[2017-08-04] MEDS: Albuterol/Ipratropium 3.0-0.5 MG/3 ML Neb Soln NEB PRN ×2 (09:00→20:55)
[2017-08-04] MEDS: VORICONAZOLE 200 MG PO SCH ×2 (09:17→20:56)
[2017-08-04] MEDS: LORazepam 0.5 MG Tab PO PRN ×3 (09:39→21:16)
--- NOTE | 2017-08-04 10:25 | PCM.PN ---
- General Info Date of Service: 08/04/17 Admission Dx/Problem (Free Text): Neutropenic fever. - Review of Systems Systems Review Comment:: Phyllis is seen today on inpatient rounds. She is getting vancomycin and levofloxacin for neutropenic fever. She had a blood transfusion on 08/03/17 due to a hemoglobin of 6.1. Hemoglobin is 8.5 today. She has had temps of 99 but nothing over 100. She feels "really wiped out" today. Cough is better. CXR negative, blood cultures negative x 1 day. No pain. - Patient Data Vitals - Most Recent: Last Vital Signs Temp 97.9 F 08/04/17 06:08 Pulse 68 08/04/17 09:00 Resp 18 08/04/17 06:08 BP 98/45 L 08/04/17 06:08 Pulse Ox 98 08/04/17 09:00 Weight - Most Recent: 156 lb 3.2 oz I&O - Last 24 Hours: Intake & Output 08/03/17 08/04/17 08/04/17 22:59 06:59 14:59 Intake Total 1666 415 Output Total 475 1100 Balance 1191 -685 Lab Results Last 24 Hours: Laboratory Results - last 24 hr 08/03/17 08/04/17 Range/Units 07:20 09:20 WBC 1.3 L* (5.0-10.0) 10^3/uL RBC 2.93 L (3.80-5.50) 10^6/uL Hgb 8.5 L D (12.0-16.0) g/dL Hct 26.5 L (37.0-47.0) % MCV 90.5 D (82.0-92.0) fL MCH 29.1 (27.0-31.0) pg MCHC 32.1 (32.0-36.0) g/dL RDW 20.5 H (11.5-14.5) % Plt Count 16 L* (150-300) 10^3/uL MPV 7.2 L (7.4-10.4) fL Neut % (Auto) 45.4 L (50.0-70.0) % Lymph % (Auto) 49.2 H (20.0-40.0) % [place] % (Auto) 4.8 (2.0-8.0) % Eos % (Auto) 0.2 L (1.0-3.0) % Baso % (Auto) 0.4 (0.0-1.0) % Neut # (Auto) 0.6 L (2.5-7.0) 10^3/uL Lymph # (Auto) 0.6 L (1.0-4.0) 10^3/uL [place] # (Auto) 0.1 (0.1-0.8) 10^3/uL Eos # (Auto) 0.0 L (0.1-0.3) 10^3/uL Baso # (Auto) 0.0 (0.0-0.1) 10^3/uL Blood Type O POSITIVE Gel Antibody Screen Negative Crossmatch See Detail Manuel Results Last 24 Hours: Microbiology 08/02/17 11:55 Aerobic Blood Culture - Preliminary Blood - Venous - Lab Draw NO GROWTH AFTER 1 DAY Anaerobic Blood Culture - Preliminary NO GROWTH AFTER 1 DAY 08/02/17 11:15 Aerobic Blood Culture - Preliminary Blood - Venous NO GROWTH AFTER 1 DAY Anaerobic Blood Culture - Preliminary NO GROWTH AFTER 1 DAY 08/02/17 11:43 - Final Sputum - Expectorated Med Orders - Current: Current Medications Acetaminophen (Tylenol) 325 - 650 mg PO Q4H PRN PRN Reason: Pain Last Admin: 08/02/17 19:11 Dose: 650 mg Albuterol (Ventolin Hfa) 0 gm INH Q4HR PRN PRN Reason: Shortness of Breath Albuterol/Ipratropium (Duoneb 3.0-0.5 Mg/3 Ml) 3 ml NEB Q6HRRT PRN PRN Reason: Dyspnea Last Admin: 08/04/17 09:00 Dose: 3 ml Cholecalciferol (Vitamin D3) 1,000 units PO BEDTIME [facility] Last Admin: 08/03/17 21:26 Dose: 1,000 units Cyanocobalamin (Vitamin B12) 500 mcg PO BEDTIME [facility] Last Admin: 08/03/17 21:26 Dose: 500 mcg Duloxetine HCl (Cymbalta) 30 mg PO DAILY [facility] Last Admin: 08/04/17 09:17 Dose: Not Given Levofloxacin/Dextrose 500 mg/ (Premix) 100 mls @ 100 mls/hr IV Q24H [facility] Last Admin: 08/04/17 03:15 Dose: Not Given Vancomycin HCl 1 gm/ Sodium (Chloride) 270 mls @ 180 mls/hr IV Q12H [facility] Last Admin: 08/04/17 03:16 Dose: 180 mls/hr Lorazepam (Ativan) 1 mg PO QID PRN PRN Reason: Anxiety Last Admin: 08/04/17 09:39 Dose: 1 mg Nicotine Polacrilex (Nicorelief) 4 mg CHEW Q2H PRN PRN Reason: smoking cessation Last Admin: 08/03/17 20:23 Dose: 4 mg Ondansetron HCl (Zofran Odt) 8 mg PO Q6H PRN PRN Reason: Nausea Ptom Voriconazole 200 Mg Tablet 1 each PO BID [facility] Last Admin: 08/04/17 09:17 Dose: 1 each Polyethylene Glycol (Miralax) 17 gm PO DAILY PRN PRN Reason: Constipation Trazodone HCl (Trazodone) 50 - 100 mg PO BEDTIME [facility] Last Admin: 08/03/17 21:26 Dose: 50 mg Vancomycin HCl (Pharmacy To Dose - Vancomycin) 1 dose .XX ASDIRECTED [facility] Discontinued Medications Acetaminophen (Tylenol Extra Strength) 1,000 mg PO ONETIME ONE Stop: 08/02/17 11:23 Last Admin: 08/02/17 11:30 Dose: 1,000 mg Acetaminophen (Tylenol) 650 mg PO ONETIME [facility] Stop: 08/03/17 14:00 Last Admin: 08/03/17 10:23 Dose: 650 mg Albuterol/Ipratropium (Duoneb 3.0-0.5 Mg/3 Ml) 3 ml NEB ONETIME ONE Stop: 08/02/17 11:31 Last Admin: 08/02/17 11:37 Dose: 3 ml Albuterol/Ipratropium (Duoneb 3.0-0.5 Mg/3 Ml) 3 ml NEB Q4H PRN PRN Reason: Shortness Of Breath/wheezing Diphenhydramine HCl (Benadryl) 25 mg PO ONETIME [facility] Stop: 08/03/17 14:00 Last Admin: 08/03/17 10:23 Dose: 25 mg Sodium Chloride (Normal Saline) 1,000 mls @ 999 mls/hr IV .BOLUS ONE Stop: 08/02/17 12:38 Last Admin: 08/02/17 11:07 Dose: 999 mls/hr Sodium Chloride (Normal Saline) 1,000 mls @ 125 mls/hr IV ASDIRECTED [facility] Last Admin: 08/02/17 12:26 Dose: 125 mls/hr Sodium Chloride (Normal Saline) 250 mls @ 125 mls/hr IV ASDIRECTED [facility] Stop: 08/03/17 15:00 Last Admin: 08/03/17 14:00 Dose: 125 mls/hr Ondansetron HCl (Zofran) 4 mg IVPUSH ONETIME ONE Stop: 08/02/17 11:23 Last Admin: 08/02/17 11:31 Dose: 4 mg - Exam General: Alert, Oriented, Cooperative, No Acute Distress Lungs: Clear to Auscultation, Normal Respiratory Effort, Decreased Breath Sounds (Decreased breath sounds at the apices.) Cardiovascular: Regular Rate, Regular Rhythm, Murmurs (2/6 systolic murmur, unchanged.) GI/Abdominal Exam: Normal Bowel Sounds Extremities: Normal Inspection, No Pedal Edema - Problem List & Annotations (1) Pancytopenia SNOMED Code(s): 804947411 Code(s): D61.818 - OTHER PANCYTOPENIA Status: Acute Current Visit: Yes (2) MDS (myelodysplastic syndrome) SNOMED Code(s): 295794570 Code(s): D46.9 - MYELODYSPLASTIC SYNDROME, UNSPECIFIED Status: Acute Current Visit: No (3) Neutropenic fever SNOMED Code(s): 933041059 Code(s): D70.9 - NEUTROPENIA, UNSPECIFIED; R50.81 - FEVER PRESENTING WITH CONDITIONS CLASSIFIED ELSEWHERE Status: Acute Current Visit: No (4) COPD (chronic obstructive pulmonary disease) SNOMED Code(s): 73172019 Code(s): J44.9 - CHRONIC OBSTRUCTIVE PULMONARY DISEASE, UNSPECIFIED Status : Chronic Current Visit: No - Problem List Review Problem List Initiated/Reviewed/Updated: Yes - My Orders Last 24 Hours: My Active Orders 08/03/17 12:58 Nicotine Polacrilex [Nicorelief] 4 mg CHEW Q2H PRN 08/04/17 09:20 BMP [BASIC METABOLIC PANEL,BMP] [CHEM] Routine 08/04/17 14:30 VANCOMYCIN TROUGH [CHEM] Routine - Assessment Assessment:: Neutropenic fever. MDS. Pancytopenia. Depression. COPD. - Plan Plan:: Neutropenic fever. Blood cultures negative, will discontinue the vancomycin, low risk for MRSA. Continue levofloxacin. I did speak with Dr. Roberta Gregg' s nurse and she said Phyllis is near her tj after chemo therapy and that is why the WBC is decreasing. Encouraging that her hemoglobin improved with the transfusion and her platelets have improved on their own. MDS. Continue chemotherapy per outpatient schedule. Pancytopenia. Per standing orders, will administer PRBC's 2 units today. Repeat CBC and BMP in the AM. Depression. Continue duloxetine. COPD. Continue oxygen and outpatient inhalation regimen. Anticipate discharge in AM on 08/05/17.
[2017-08-04 14:42] LABS: SODIUM,NA 142
[2017-08-04 14:47] LABS: CHLORIDE,CL 109
[2017-08-04] MEDS: Cholecalciferol (Vitamin D3) 1,000 Unit Tab PO SCH (20:55)
[2017-08-04] MEDS: Cyanocobalamin (Vitamin B12) 500 MCG Tab PO SCH (20:55)
[2017-08-04] MEDS: traZODone 50 MG Tab PO SCH (21:00)
[2017-08-05 07:10] VITALS: BP 107/59
[2017-08-05] MEDS: Albuterol/Ipratropium 3.0-0.5 MG/3 ML Neb Soln NEB PRN (07:17)
[2017-08-05 07:41] LABS: CHLORIDE,CL 110 mmol/L (98-115)
[2017-08-05 07:47] LABS: SODIUM,NA 146 mmol/L (136-145)
[2017-08-05] MEDS: Fluticasone/Vilanterol 200 MCG/25 MCG Inhalation Powder Kit of 14 IH SCH (08:10)
[2017-08-05] MEDS: DULoxetine 30 MG Cap PO SCH (08:11)
[2017-08-05] MEDS: VORICONAZOLE 200 MG PO SCH (08:12)
[2017-08-05] MEDS: Levofloxacin/Dextrose 5%-Water 500 MG in Premix Bag 1 BAG IV SCH (11:00)
--- NOTE | 2017-08-06 08:09 | DISCH ---
HISTORY OF PRESENT ILLNESS: She was admitted to the emergency room on 08/02/2017 with a neutropenic fever. Her initial symptoms were generalized malaise, fever, and a nonproductive cough for the past day. She did have some associated hemoptysis as well as increased shortness of breath. She was loera cultured with all cultures coming back no growth. She has been treated with both vancomycin and Levaquin. Vancomycin was discontinued yesterday. Her white count has diminished in response to her chemotherapy. White blood cell count today is 1.1. Her platelet count has improved to 19,000. She is on outpatient treatment for pulmonary aspergillosis with Voriconazole. She has had some depression and has been treated with duloxetine. Hemoglobin today is 8.4. She did receive 2 units of packed RBCs yesterday. She was feeling quite fatigued yesterday and was kept in the hospital for one more day for continued antibiotics as well as determination of blood culture results. Dr. Evelin Hamlin spoke with Dr. Roberta Gregg's nurse. [place] said that Phyllis is near her tj after chemotherapy, and that is why her white blood cell count is decreasing. She also felt it was encouraging that her hemoglobin improved with the transfusion and her platelets improved on their own. She is ready for discharge, is feeling quite a bit better. All of her lab results have been reviewed. Chemistries are normal today with the exception of an elevated sodium of 146. PHYSICAL EXAMINATION: VITAL SIGNS: Temperature is 97.5, pulse 64, respirations 20, blood pressure 107/59, O2 saturation is 96% on 2 L of oxygen. SKIN: Pale, warm, dry to touch. CARDIAC: Reveals S1, S2 to be normal. Rate and rhythm are regular. No murmur, click, or gallop is auscultated. LUNGS: Clear without rales, wheezes, or rhonchi. There is minimal pedal edema. IMPRESSION: Neutropenic fever, improved with IV antibiotics. I do have a message in to Dr. Ibarra in regard to continuing Levaquin. She has had 3 days of intravenous Levaquin as well as 3 days of vancomycin, which was discontinued yesterday. She will continue all her home medications as before and follow up with Dr. Ibarra next week. She will continue outpatient chemotherapy as before. /[id number]/MODL
== END 2017-08-05 12:10 | disposition home or self-care (01) | DRG 809 ==
LOC: KA.ED 10:30 → KA.MS 12:53
PROVIDERS: ADMIT Physician Assistant Medical; ATTEND Internal Medicine
PROC: 30233N1 Transfusion of Nonautologous Red Blood Cells into Peripheral Vein, Percutaneous Approach (ICD-10-PCS; principal; 2017-08-03)
DX: D70.9 Neutropenia, unspecified (principal); D72.819 Decreased white blood cell count, unspecified; B44.1 Other pulmonary aspergillosis; D64.9 Anemia, unspecified; R50.9 Fever, unspecified; R50.81 Fever presenting with conditions classified elsewhere; D46.9 Myelodysplastic syndrome, unspecified; D69.6 Thrombocytopenia, unspecified; I10 Essential (primary) hypertension; J44.9 Chronic obstructive pulmonary disease, unspecified; F41.8 Other specified anxiety disorders; Z88.0 Allergy status to penicillin; Z79.899 Other long term (current) drug therapy; Z86.718 Personal history of other venous thrombosis and embolism
CPT/HCPCS: 36415; 36430; 71046; 80048; 80053; 81001; 83605; 85025; 86850; 86900; 86901; 86920; 86922; 87040; 87070; 87205; 87804; 94640; 94640-76; 96361; 96374; 99285; A9270-GY; J1956; J2405; J3370; J7030; J7050; P9016

== ENCOUNTER 2018-05-23 16:50 | Inpatient (IN) | payer MEDICARE ==
[2018-05-23] MEDS ORDERED: Acetaminophen 325 MG Tab PO ONE (17:16)
[2018-05-23] MEDS ORDERED: Albuterol 0.083% 2.5 MG/3 ML Neb Soln ONE (18:49)
[2018-05-23] MEDS ORDERED: Albuterol 0.083% 2.5 MG/3 ML Neb Soln NEB ONE (18:58)
[2018-05-23 19:40] LABS: CHLORIDE,CL 99 mmol/L (98-115); SODIUM,NA 135 mmol/L (136-145)
[2018-05-23] MEDS ORDERED: Piperacillin/Tazobactam/Dext 3.375 GM in Premix Bag 1 BAG IV SCH (20:00)
[2018-05-23] MEDS ORDERED: Sodium Chloride 0.9% 100 ML ONE (21:01)
[2018-05-23] MEDS: BUDESONIDE INH SCH ×2 (21:40→21:47)
[2018-05-23] MEDS: FORMOTEROL INH SCH ×2 (21:40→21:47)
[2018-05-23] MEDS ORDERED: LORazepam 0.5 MG Tab PO ONE (22:44)
[2018-05-24] MEDS ORDERED: Acetaminophen 325 MG Tab ONE (00:16)
[2018-05-24] MEDS: Albuterol/Ipratropium 3.0-0.5 MG/3 ML Neb Soln NEB PRN ×2 (00:30→07:30)
[2018-05-24] MEDS: Piperacillin/Tazobactam/Dext 3.375 GM in Premix Bag 1 BAG IV SCH ×2 (00:45→11:56)
[2018-05-24] MEDS: Acetaminophen 325 MG Tab PO PRN ×4 (06:10→20:39)
[2018-05-24] MEDS ORDERED: Ondansetron 4 MG Tab.DIS PO PRN (08:20)
[2018-05-24] MEDS ORDERED: Nicotine Polacrilex 4 MG Gum CHEW PRN (08:20)
[2018-05-24] MEDS ORDERED: Polyethylene Glycol 3350 Powder 17 GM Packet PO PRN (08:20)
[2018-05-24] MEDS ORDERED: LORazepam 0.5 MG Tab PO PRN (08:20)
[2018-05-24] MEDS ORDERED: Non-Formulary Medication 1 Each (Albuterol 0 PUFF) INH PRN (08:20)
[2018-05-24] MEDS ORDERED: Acetaminophen 325 MG Tab PO PRN (08:20)
[2018-05-24] MEDS ORDERED: Albuterol/Ipratropium 3.0-0.5 MG/3 ML Neb Soln NEB PRN (08:20)
--- NOTE | 2018-05-24 08:25 | CR ---
[id number] RAD/RAD Chest PA And Lateral EXAM: RAD Chest PA And Lateral CLINICAL DATA: CRACKLES AT LUNG BASES COMPARISON: CORRELATION IS MADE WITH THE EXAM OF MAY 16, 2018. FINDINGS: An extensive infiltrate is seen at the left lung base. A small infiltrate is seen at the right lung base. There is underlying centrilobular emphysema. The cardiomediastinal contour is stable. A right-sided PICC line again is seen. Compression deformities are seen involving the lower thoracic spine. IMPRESSION: SIGNIFICANT BIBASILAR PNEUMONIA, LEFT GREATER THAN RIGHT. Randy Marsh MD 05/24/18 0824 Thank you for allowing us to participate in the care of your patient.
[2018-05-24] MEDS: BUDESONIDE INH SCH (08:49)
[2018-05-24] MEDS: FORMOTEROL INH SCH (08:49)
[2018-05-24] MEDS ORDERED: [UNRECOGNIZED DRUG - OTHER] PO SCH (09:00)
[2018-05-24] MEDS ORDERED: diphenhydrAMINE 25 MG Cap PO ONE (09:00)
[2018-05-24] MEDS ORDERED: Acetaminophen 325 MG Tab PO ONE (09:00)
[2018-05-24] MEDS ORDERED: [UNRECOGNIZED DRUG - OTHER] PO SCH (09:00)
[2018-05-24] MEDS ORDERED: SODIUM CHLORIDE IV SCH ×2 (09:00)
[2018-05-24] MEDS ORDERED: Omeprazole 20 MG Cap.CR PO SCH ×2 (09:00→10:30)
[2018-05-24] MEDS: DULoxetine 30 MG Cap PO SCH (09:34)
[2018-05-24] MEDS ORDERED: Iopamidol 755 Mg/ML 75 ML Bottle IVPUSH ONE (09:38)
[2018-05-24] MEDS: Sodium Chloride 0.9% 100 ML IV ONE ×2 (09:45→12:06)
[2018-05-24 10:11] LABS: ANION GAP 28.7 mmol/L (5-15); CHLORIDE,CL 97 mmol/L (98-115); SODIUM,NA 147 mmol/L (136-145)
[2018-05-24] MEDS: SYMBICORT INH SCH ×2 (10:23→21:23)
[2018-05-24] MEDS: Levofloxacin/Dextrose 5%-Water 100 ML IV SCH (10:43)
[2018-05-24] MEDS: Vitamin E (dl-alpha-tocopherol acetate) 400 Unit Cap PO SCH (10:48)
[2018-05-24] MEDS: Omeprazole 20 MG Cap.CR PO SCH (10:48)
--- NOTE | 2018-05-24 11:14 | CT ---
[id number] CT/CT Chest W IV EXAM: CT Chest W IV CLINICAL DATA: HEMOPTYSIS. COMPARISON: Chest CT from June 18, 2017. FINDINGS: LUNGS: Patchy areas of dense parenchymal opacification scattered throughout both lungs. Findings are most prominent in the left upper lobe lingula. Some of these areas are nodular in appearance with irregular margins. For example, there is a subpleural nodule measuring 16 x 18 x 7 mm (series 2 image 85). Bilobed solid noncalcified nodule with irregular margins in the left lower lobe as well measuring 14 x 9 x 7 mm). Mild parenchymal nodularity was seen on the prior examination. However, findings have markedly progressed since prior examination May 2017. Findings are superimposed on changes of advanced apical predominant parenchymal emphysema. HEART AND GREAT VESSELS: Mild cardiomegaly with small pericardial effusion. Dilation of the central pulmonary vasculature. Thoracic aorta atherosclerosis. No aneurysm or dissection. Bilateral hilar and mediastinal lymphadenopathy. For example, there is a 24 x 30 x 50 mm node in the subcarinal station. Additionally there is a 33 x 22 x 14 mm node in the right hilar station. There are numerous nodes in the prevascular space demonstrating abnormally rounded appearance. UPPER ABDOMINAL ORGANS: Spleen extends beyond the field of view of this examination, however demonstrates marked enlargement consistent with spinal megaly. Small sliding-type hiatus hernia. Other structures are unremarkable. BONES: Appearance of the spine has not significantly changed since the prior examination, again demonstrating diffuse demineralization with numerous chronic compression deformities. Additionally, there is a hemangioma in the T8 vertebral body, similar to the prior examination as well. IMPRESSION: Extensive patchy somewhat nodular appearing parenchymal opacification throughout both lungs. In addition, there is mediastinal and bilateral hilar lymphadenopathy. Imaging appearance is somewhat nonspecific. Differential diagnosis includes neoplasm and/or pneumonia, described in detail above. Quinten Hurtado MD 05/24/18 1113 Thank you for allowing us to participate in the care of your patient.
[2018-05-24] MEDS: Levofloxacin/Dextrose 5%-Water 50 ML IV SCH (11:53)
[2018-05-24] MEDS: VENCLEXTA 100 MG PO SCH (12:02)
[2018-05-24] MEDS: Sodium Chloride 0.9% 250 ML IV SCH (12:05)
[2018-05-24] MEDS: Albuterol 0.083% 2.5 MG/3 ML Neb Soln INH PRN ×3 (13:47→20:38)
[2018-05-24] MEDS: Umeclidinium Bromide 62.5 MCG 30 Puff Inhaler IH SCH (13:49)
[2018-05-24] MEDS ORDERED: diphenhydrAMINE 25 MG Cap PO SCH (16:30)
[2018-05-24] MEDS: diphenhydrAMINE 25 MG Cap PO SCH ×2 (16:37→20:58)
[2018-05-24] MEDS ORDERED: Hydrocortisone 2.5% Crm 30 GM Tube TOP PRN (17:18)
[2018-05-24] MEDS: Furosemide 40 MG/4 ML VIAL IVPUSH ONE ×2 (20:57→21:06)
[2018-05-24] MEDS: LORazepam 0.5 MG Tab PO SCH (20:58)
[2018-05-24] MEDS ORDERED: LEVOFLOXACIN 750 MG PO SCH (21:00)
--- NOTE | 2018-05-24 21:00 | HP ---
HISTORY OF PRESENT ILLNESS: This is 72-year-old female who has a history of myelodysplastic syndrome. She frequently receives blood transfusions for a low hemoglobin as well as platelet transfusions for thrombocytopenia. She has a specialized HLA donors for her platelet transfusions. Apparently, there are only three people in [place] that match her HLA type. She was scheduled to have a platelet transfusion today. I was asked to see her due to the fact that she had a considerable amount of weakness and is deconditioned. She is finding the daily trips to the hospital difficult. She does have COPD and is a current smoker, trying to quit. She uses Incruse Ellipta, DuoNebs, Symbicort, as well as Ventolin HFA. She is on antibiotic prophylaxis with levofloxacin. She has insomnia and anxiety. She takes 2 mg of lorazepam at bedtime and occasional 1 mg during the day if she needs it. She has a history of depression and is taking duloxetine 30 mg daily. Her oncologist is Dr. Sepulveda, at [facility] in [place], [place]. PHYSICAL EXAMINATION: VITAL SIGNS: On exam, temp is 98.1, pulse 114, respirations 14, blood pressure 96/30, O2 saturation is 93% on 2.5 L of oxygen. SKIN: Cool, dry, pale with numerous ecchymotic areas on the upper extremities. HEENT: Normocephalic, facies are symmetrical. External ear canals are clear. Tympanic membranes are pearly rice. Eyes, PERRLA. Extraocular movements are intact. Visual rucker are full. Nasal mucosa is pink and moist without erythema or exudate. Posterior pharynx is pale without erythema or exudate. There is no cervical lymphadenopathy. CARDIAC: Reveals S1, S2 to be normal. Rate and rhythm are regular. No murmur, click, or gallop is auscultated. LUNGS: Clear at the time of this examination. No rales, wheezes, or rhonchi. ABDOMEN: Slightly distended with splenomegaly. Bowel sounds are present in all four quadrants. There is no pedal edema. IMPRESSION: 1. Weakness secondary to myelodysplastic syndrome. There is also some question of whether she may have an infectious process going on. A chest x- ray will be ordered. 2. Blood cultures positive for gram-positive cocci. She was covered empirically with Zosyn as well as vancomycin. 3. Myelodysplastic syndrome with leukopenia, anemia, as well as thrombocytopenia, (pancytopenia.) She is transfusion dependent at this time. She is neutropenic as well. She will be admitted to the hospital and placed on neutropenic precautions. She is due for blood transfusion as well as platelet transfusion tomorrow. I did notify the patient's primary care provider, Dr. Evelin Ibarra, of the patient's admission to the hospital. LABORATORY DATA: Pertinent lab data from today, her white blood cell count was 0.69. Her platelet count was 7000 and improved to 16,000 after platelet transfusion. Comprehensive metabolic panel showed a sodium of 136; normal potassium of 4; BUN and creatinine are normal at 16 and 0.73 with a GFR of greater than 60. Calcium is low at 8.4 with a normal albumin of 3.33. Total bilirubin is slightly elevated at 1.1. She did have blood cultures on 05/22/2018 which grew gram-positive cocci. FAMILY/SOCIAL HISTORY: She lives alone. She is a smoker. Does not use alcohol. She has a son who lives close by. /[id number]/MODL
[2018-05-24] MEDS: Cholecalciferol (Vitamin D3) 1,000 Unit Tab PO SCH (21:06)
[2018-05-25] MEDS: Acetaminophen 325 MG Tab PO PRN ×3 (02:25→20:13)
[2018-05-25] MEDS: Omeprazole 20 MG Cap.CR PO SCH (07:49)
[2018-05-25] MEDS: SYMBICORT INH SCH ×3 (07:51→21:58)
[2018-05-25] MEDS: Umeclidinium Bromide 62.5 MCG 30 Puff Inhaler IH SCH ×2 (07:58→08:53)
[2018-05-25 08:34] LABS: ANION GAP 15.6 mmol/L (5-15); CHLORIDE,CL 101 mmol/L (98-115); SODIUM,NA 140 mmol/L (136-145)
[2018-05-25] MEDS: Albuterol 0.083% 2.5 MG/3 ML Neb Soln INH PRN ×3 (08:50→18:42)
[2018-05-25] MEDS: DULoxetine 30 MG Cap PO SCH (08:52)
[2018-05-25] MEDS: Vitamin E (dl-alpha-tocopherol acetate) 400 Unit Cap PO SCH (08:52)
--- NOTE | 2018-05-25 09:46 | PN ---
05/24/2018 PATIENT NAME: KAM RUTH SUBJECTIVE: This is a 72-year-old female with a past history of myelodysplastic syndrome with pancytopenia, who is PRBC and platelet transfusion dependent. She was admitted to the hospital yesterday for weakness. She was also found to have positive blood cultures and was treated empirically originally with Zosyn as well as vancomycin. She does have an allergy to penicillins, which is a reaction including respiratory distress. She did tolerate the one-time dose of Zosyn. Based on her allergy though, we will change her antibiotics to vancomycin as well as levofloxacin. She was on oral levofloxacin at home as well. She had a chest x-ray performed this morning, which confirmed our suspicion for bibasilar pneumonia. She does have left pneumonia worse than the right. There is an extensive infiltrate seen on the left lung base. Small infiltrate was seen in the right lung base. She did have lab work drawn today, which included a CBC and a CMP. Hemoglobin was 6.7 yesterday and now is 5.8. Platelets have gone from 16,000 to 9000, now to 4000. She is due for platelet transfusion today as well as packed RBCs. She has been running a temp of 100.2. CT of the chest was then ordered based on the findings of the chest x-ray and due to the fact that the patient is having hemoptysis. I was concerned that she may have a pulmonary embolism as well. CT of the chest showed patchy areas of dense parenchymal opacification scattered throughout both lungs. Findings are most prominent in the left upper lobe lingula. Some of these areas are nodular in appearance with irregular margins. For example, there is a subpleural nodule measuring 16 x 18 x 7 mm. Bilobed solid noncalcified nodule with irregular margins in the left lower lobe as well, measuring 14 x 9 x 7 mm. Mild parenchymal nodularity was seen on the prior examination; however, findings had markedly progressed since prior examination of 05/2017. Findings are superimposed on changes of advanced apical predominant parenchymal emphysema. There was bilateral hilar and mediastinal lymphadenopathy. There are numerous nodes in the prevascular space demonstrating abnormally rounded appearance. The spleen extends beyond the field of view of the examination, however, demonstrates marked enlargement consistent with splenomegaly. Final impression; extensive patchy somewhat nodular appearing parenchymal opacifications throughout both lungs. In addition, there was mediastinal and bilateral hilar lymphadenopathy. Imaging appearance was thought to be somewhat nonspecific by the radiologist, Dr. Quinten Hurtado. Differential diagnosis includes neoplasm and/or pneumonia. I did speak personally with the radiologist via telephone and he recommended followup CT as he is concerned that this may be an underlying neoplastic issue. We did add a lactate on to the patient's lab work today, which was normal at 1.5. The patient is actually feeling fairly well in terms of improvement from yesterday. She still feels somewhat exhausted with any little activity. She does feel marginally better than yesterday. OBJECTIVE: VITAL SIGNS: On examination, her temp is 100.2, pulse is 124, respirations 28, blood pressure 128/36, O2 saturation is 92% on 3 L of oxygen. SKIN: Cool, dry, pale with ecchymotic areas on the upper extremities. CARDIAC: Reveals S1, S2 to be normal. Rate and rhythm are regular. No murmur, click, or gallop is auscultated. LUNGS: Have diffuse rhonchi throughout. No wheezes or rales. ABDOMEN: Distended with splenomegaly. Bowel sounds present in all 4 quadrants. EXTREMITIES: There is no pedal edema. IMPRESSION: 1. Weakness, leading to hospital admission secondary to myelodysplastic syndrome. 2. Significant bibasilar pneumonia, left greater than the right. Please refer back to the history of present illness for the findings on the CT as well as the chest x-ray performed today. The patient is being covered with vancomycin as well as levofloxacin. 3. Anemia. We contemplated not giving blood products today due to her fever. However, I did consult with her oncologist, Dr. Aleks Sepulveda, at the [facility]. He recommended giving the blood products as the benefit far outweighs the risk. The patient will also receive platelet transfusion today. She is typed with special platelets to match HLA. There are only three donors in the [place]. 4. I did not include this in her history and physical for admission; however, the patient has decided to become a DNR/DNI. Previously, she was a full code. We did discuss the difference between full code and DNR/DNI status. She is okay with receiving antibiotics as well as blood products. I spoke with Dr. Evelin Ibarra regarding the patient's admission yesterday in her progress or lack thereof today. When I spoke with Dr. Sepulveda regarding the patient, I did notify him that the patient was not interested in coming to [place] for her care and would like to stay here if possible. He thought that was appropriate at this time, but offered that if the patient changed her mind, she would not hesitate to accept her for admission at [facility] in [place] for further care. We will continue to watch closely. I am still waiting the final culture and sensitivity reports on the blood cultures, which grew gram-positive cocci on 05/22/2018. /[id number]/MODL
[2018-05-25] MEDS: Sodium Chloride 0.9% 250 ML IV SCH (10:26)
[2018-05-25] MEDS: Levofloxacin/Dextrose 5%-Water 100 ML IV SCH (10:27)
[2018-05-25] MEDS ORDERED: Sodium Chloride 0.9% 20 ML SDV FLUSH PRN (11:11)
[2018-05-25] MEDS: Levofloxacin/Dextrose 5%-Water 50 ML IV SCH (11:34)
[2018-05-25] MEDS ORDERED: diphenhydrAMINE 25 MG Cap PO ONE (12:10)
[2018-05-25] MEDS: VENCLEXTA 100 MG PO SCH ×2 (12:25→12:32)
[2018-05-25] MEDS: Alum Hydrox/Mag Hydrox/Simeth 40 ML, diphenhydrAMINE 12.5 MG, Lidocaine 2% 40 ML PO SCH ×6 (12:32→16:05)
[2018-05-25] MEDS ORDERED: Sodium Chloride 0.9% 250 ML IV SCH (13:00)
--- NOTE | 2018-05-25 14:34 | PN ---
05/25/2018 PATIENT NAME: FLORYYUELY DANIEL DICTATED BY: Dr. Kam Martini. 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 She has pancytopenia and is dependent on packed RBCs and platelet transfusions. She had a chest x-ray yesterday which showed a significant bibasilar pneumonia, left greater than right. A chest CAT scan was also performed, which showed extensive patchy somewhat nodular-appearing parenchymal opacifications throughout both lungs. In addition, there is mediastinal and bilateral hilar lymphadenopathy. The imaging appearance is somewhat nonspecific; however, the differential diagnosis included neoplasm and/or pneumonia described in detail of the chest CT report of 05/24/2018. I did speak with Dr. Rivera Metcalf, the radiologist who read the CT scan. These CT findings are new since her last CAT scan. The patient is being treated with both vancomycin as well as levofloxacin. She had blood cultures performed on 05/22/2018 and so far the anaerobic cultures have grown a gram-positive cocci. Sample has been sent to [facility] for identification and sensitivities. The aerobic cultures have been negative for 2 days. LABORATORY DATA: Pertinent lab data from today shows a WBC count of 0.43, which is actually improved. Her hemoglobin increased from 5.8 to 7.8. She did receive 2 units of packed RBCs yesterday as well as a unit of platelets. She received 20 mg of Lasix in between the 2 units due to some crackles in her lungs. Her platelets were 4 yesterday, increased to 11 and then this morning, they are 5 again. She does receive HLA platelets with apparently only three donors in the [place]. Comprehensive metabolic panel is reviewed and is stable. Of note, her BUN and creatinine are normal at 15 and 0.60 with a GFR of greater than 60 and a creatinine clearance of 80.51. The patient states she is feeling good today. She stated "at least I do not want to today." She is sleeping well and her appetite has improved somewhat. PHYSICAL EXAMINATION: VITAL SIGNS: Temp is 98.8, pulse is 104, respirations 20, blood pressure 120/34, and O2 saturation is 98% on 6 L of oxygen. Her oxygen was increased last night when she became short of breath with the increased fluid volume of the blood transfusion. SKIN: Cool, dry, pale with several ecchymotic areas especially noted on her upper extremities. Her eyes do look somewhat jaundiced; however, her bilirubin was 1.2 today. CARDIAC: Exam reveals S1, S2 to be normal. Rate and rhythm are regular. No murmur, click, or gallop is auscultated. LUNGS: Upon auscultation, do have expiratory wheezes throughout without rales or rhonchi. GI: Abdomen is distended with splenomegaly. Bowel sounds are present in all four quadrants. There is no pedal edema. IMPRESSION: 1. Weakness, profound, associated with pancytopenia secondary to myelodysplastic syndrome. The patient is receiving platelets again today. She is actually going to receive 2 units of platelets today. They are special HLA matched platelets with only three donors in the [place] who are capable of donating. She did receive 2 units of packed RBCs yesterday with an improvement in her hemoglobin from 5.8 to 7.8. She is feeling somewhat better. 2. Significant bibasilar pneumonia, left greater than right. She is receiving vancomycin as well as levofloxacin. Her blood cultures did grow out gram- positive cocci and I am awaiting bacterial identification as well as sensitivities. 3. DNR DNI status. The patient does want to continue with the blood products as well as antibiotics. She has wishes to not be resuscitated or intubated if such a situation would present itself. 4. New findings on chest CT in regard to possible neoplastic changes. We will follow with repeat CT after this infective process has improved. 5. I have spoken with Dr. Treadwell, the patient's oncologist as well as Dr. Evelin Ibarra who is her primary care provider, who happens to be out of the country at the time. They concur with my findings and medical decision making. /[id number]/MODL
[2018-05-25] MEDS: GI Cocktail 45 ML BOTTLE PO SCH ×2 (17:37→20:18)
[2018-05-25] MEDS: LORazepam 0.5 MG Tab PO SCH (20:10)
[2018-05-25] MEDS: Cholecalciferol (Vitamin D3) 1,000 Unit Tab PO SCH (20:11)
[2018-05-25] MEDS: diphenhydrAMINE 25 MG Cap PO SCH (20:12)
[2018-05-26] MEDS: GI Cocktail 45 ML BOTTLE PO SCH ×4 (01:21→13:18)
[2018-05-26] MEDS: Acetaminophen 325 MG Tab PO PRN (03:36)
[2018-05-26] MEDS: Albuterol 0.083% 2.5 MG/3 ML Neb Soln INH PRN ×2 (04:11→08:39)
[2018-05-26] MEDS: Omeprazole 20 MG Cap.CR PO SCH (07:41)
[2018-05-26] MEDS: Vitamin E (dl-alpha-tocopherol acetate) 400 Unit Cap PO SCH (08:02)
[2018-05-26] MEDS: DULoxetine 30 MG Cap PO SCH (08:02)
[2018-05-26 08:19] LABS: ANION GAP 14.9 mmol/L (5-15); CHLORIDE,CL 103 mmol/L (98-115); SODIUM,NA 141 mmol/L (136-145)
[2018-05-26] MEDS ORDERED: Sodium Chloride 0.9% 10 ML Syringe FLUSH PRN (09:00)
[2018-05-26] MEDS ORDERED: Sodium Chloride 0.9% 10 ML Syringe FLUSH SCH ×3 (09:00)
[2018-05-26] MEDS: SYMBICORT INH SCH (09:43)
[2018-05-26] MEDS: Umeclidinium Bromide 62.5 MCG 30 Puff Inhaler IH SCH (09:44)
[2018-05-26] MEDS: Levofloxacin/Dextrose 5%-Water 100 ML IV SCH (10:47)
[2018-05-26] MEDS: Sodium Chloride 0.9% 250 ML IV SCH (10:49)
[2018-05-26] MEDS: Levofloxacin/Dextrose 5%-Water 50 ML IV SCH (12:02)
[2018-05-26 12:12] VITALS: BP 123/43
[2018-05-26] MEDS ORDERED: diphenhydrAMINE 25 MG Cap PO PRN (12:30)
[2018-05-26] MEDS: VENCLEXTA 100 MG PO SCH (13:06)
--- NOTE | 2018-05-27 10:27 | DISCH ---
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 She has pancytopenia and is dependent on packed RBCs every other day and daily platelet transfusions. On 05/24/2018, chest x-ray showed significant bibasilar pneumonia, left greater than right. Chest CAT scan was also performed, which revealed extensive patchy somewhat nodular appearing parenchymal opacifications throughout both lungs. In addition, there was mediastinal and bilateral hilar lymphadenopathy. The imaging appearance was somewhat nonspecific; however, the differential diagnosis included neoplasm and/or pneumonia. The CT findings are new since her last CAT scan. The patient is being treated with both vancomycin as well as levofloxacin. She had blood cultures performed on 05/22/2018 and so far the anaerobic cultures have grown Gram-positive cocci without identification and sensitivities available as of yet. The aerobic cultures were negative thus far. The patient received a double pack of platelets yesterday. Platelets yesterday morning were 5 and improved to 18 after her platelet transfusion. This morning they are 8. White blood cell count is 0.32. Hemoglobin is 7.5. Chemistries show normal sodium, potassium, chloride, carbon dioxide, anion gap, BUN, creatinine, creatinine clearance, and GFR. Her glucose was elevated at 105. Calcium is low at 8.1. Total bilirubin is 0.9. AST, ALT, alkaline phosphatase, total protein, and albumin are all low. She has changed her code status from full code to DNR/DNI, however, wants to continue blood transfusions as well as antibiotic therapy. She is awaiting a bone marrow biopsy, which was to be performed on 05/30/2018 in this facility. She is at a high risk of bleeding as well as compromise from a pulmonary standpoint. I am not even sure that she will be able to have her bone marrow biopsy in this facility. It would be disappointing if the patient waited until Wednesday to have her bone marrow biopsy and only to find out that she could not have this done. She continues on oral chemotherapy as well. She is awaiting the results of the bone marrow biopsy to determine whether she wants to continue with blood products as well as chemotherapy. She has developed oral ulcerations secondary to her chemotherapy and is receiving GI cocktails every 4 hours. The patient reports she feels weak. She is very weepy during her interview today. She is unable to eat due to the ulcerations in her mouth. She know she has decisions to make in regard to continuing care. The platelets she receives are HLA matched, and there are only three donors in the [place] that are qualified to donate these platelets for her. She is followed by Oncology at [facility] in [place], namely Dr. Aleks Sepulveda. I have spoken with Dr. Sepulveda daily since the patient's admission to update him on her progress or lack thereof. I did have a very socrates conversation with the patient today in regard to transferring to [place] to be closer to Oncology Specialty, blood products, as well as possibility for bone marrow biopsy to be performed in a more timely fashion. The patient is agreeable to this. PHYSICAL EXAM ON DISCHARGE: VITAL SIGNS: Temperature is 99.2, pulse 89, respirations 20, blood pressure 123/43, O2 saturation is 93% on 4 L of oxygen. SKIN: Cool, dry, pale with ecchymotic areas on her upper extremities. CARDIAC: S1, S2 to be normal. Rate and rhythm are regular. No murmur, click, or gallop is auscultated. LUNGS: Improved from auscultation yesterday. Right lower lobe does have some expiratory wheeze. She had just received respiratory therapy treatment. I do not auscultate any rales or rhonchi. ABDOMEN: Distended with splenomegaly. There is no pedal edema. IMPRESSION: 1. Mild weakness secondary to myelodysplastic syndrome and some question also of progression of her disease. 2. Significant bibasilar pneumonia, left greater than right. She has been receiving vancomycin as well as levofloxacin. Anaerobic blood culture grew out Gram-positive cocci, and I am still waiting bacterial identification as well as sensitivities. 3. Oral ulcers from oral chemotherapy inhibiting adequate oral intake. 4. New findings on chest CT in regard to possible neoplastic changes. CT will need to be repeated after infective process has improved if deemed necessary. 5. Need for bone marrow biopsy for the patient to determine whether she wants to continue oral chemotherapy and blood product transfusion. I spoke with Dr. Sepulveda via telephone. He had informed me when he learned of the patient's hospital admission that he would be happy to take the patient in transfer at any point in time. He is still willing to accept the patient in transfer. I do believe that this is in the best interest of the patient to be closer to Oncology, specialty care with neutropenia and pancytopenia actually, closer proximity to blood products for transfusion and possibility of bone marrow transplant to be done in a more timely fashion, so the patient can make a determination of further treatment. Her prognosis is deemed to be quite poor. If the patient does decide to withhold treatment and it is acceptable to Dr. Sepulveda, we would be more than happy to have her come back here as she does prefer smaller hospital venue where everyone is familiar with her. /[id number]/MODL MTDD
== END 2018-05-26 13:45 | DRG 811 ==
LOC: KA.MS 16:50
PROC: 30233R1 Transfusion of Nonautologous Platelets into Peripheral Vein, Percutaneous Approach (ICD-10-PCS; principal; 2018-05-24)
PROC: 30233N1 Transfusion of Nonautologous Red Blood Cells into Peripheral Vein, Percutaneous Approach (ICD-10-PCS; 2018-05-25)
DX: D46.9 Myelodysplastic syndrome, unspecified (principal); J15.9 Unspecified bacterial pneumonia; D61.818 Other pancytopenia; Z66 Do not resuscitate; J44.9 Chronic obstructive pulmonary disease, unspecified; F41.9 Anxiety disorder, unspecified; G47.00 Insomnia, unspecified; R59.0 Localized enlarged lymph nodes; K12.1 Other forms of stomatitis; F32.9 Major depressive disorder, single episode, unspecified; F17.200 Nicotine dependence, unspecified, uncomplicated
CPT/HCPCS: 36415; 36430; 71046; 71260; 80053; 80202; 83605; 85025; 85049; 86850; 86900; 86901; 86920; 86922; 94640; 99000; A9270-GY; J1940; J1956; J2543; J3370; J7050; J7613-GY; J7620-GY; P9016; P9037; Q9967

== ENCOUNTER 2018-06-03 11:46 | Inpatient (IN) | payer MEDICARE ==
[2018-06-03] MEDS ORDERED: Sodium Chloride 0.9% 10 ML Syringe FLUSH PRN (13:54)
[2018-06-03] MEDS: Morphine 2 MG/ML Syringe IVPUSH PRN ×3 (18:28→23:04)
[2018-06-03] MEDS: LORazepam 2 MG/ML SDV IVPUSH PRN ×2 (18:28→23:02)
[2018-06-03] MEDS ORDERED: Non-Formulary Medication 1 Each (Ondansetron 8 MG) PO PRN (20:11)
[2018-06-03] MEDS ORDERED: Acetaminophen 325 MG Tab PO PRN (20:11)
[2018-06-03] MEDS: Albuterol/Ipratropium 3.0-0.5 MG/3 ML Neb Soln NEB PRN (20:30)
--- NOTE | 2018-06-03 20:31 | PCM.HP ---
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 She was initally admitted 05/23/18 after being seen by NHUNG Kendrick, when she was reportedly weak and had a fever when she came in for a blood product transfusion. She had imaging done which indicated a bibasilar PNA and was started on levofloxacin and vancomycin. She continued to decline clinically and was due to have a bone marrow biopsy on 05/30/18 but Phyllis wanted to have this done sooner to see if she wanted to continue treatment. She was transferred to [facility], on 05/26/18 where she was admitted and to their oncology service. After reviewing her imaging she was started on voricaonzole, due to her hx of aspergillosis, as well as continuing her levofloxacin and her vancomycin. She had been treated for her AML with azacitidine for her MDS and then eventually received arabinoside/Venoteclax as an outpatient. She had poor response to transfusion, despite switching to HLA-matched donors. When she was transferred to [place] her antibiotics were switched to cefepime and vancomycin. She had stomatitis as well, which was herpes positive, and she received Valacyclovir, currently she is asymptomatic from this. Bone marrow aspirate was performed on 05/27/18 which showed progression of her disease despite chemotherapy. She had a PICC line changed on 05/31/18. Phyllis decided on 06/02/18 that she did not want to do any further transfusions and wanted to be kept comfortable and be transferred back to [place]. When I see her today, she is alert, oriented and is able to interact with me. She is obviously tearful knowing that her disease will take her life and wants to avoid any pain. She is currently on morphine PRN as well as lorazepam PRN. She wants to continue with her inhaled COPD meds and no other meds. She would like to have a palacio catheter placed for comfort. She has not decided on a nayana to visit her but will think about this. She denies pain currently. She is obviously sad about her circumstance. - Related Data Allergies/Adverse Reactions: Allergies Allergy/AdvReac Type Severity Reaction Status Date / Time Penicillins Allergy Respiratory Verified 06/03/18 15:04 Distress Home Medications: Home Meds Cholecalciferol (Vitamin D3) [Vitamin D3] 1,000 units PO 209912/09/16 [History] Ondansetron HCl [Ondansetron] 8 mg PO Q6H PRN 02/15/17 [History] Albuterol [Ventolin HFA] 1 - 2 puff INH Q4HR PRN 04/19/17 [History] Polyethylene Glycol 3350 [Miralax] 17 gram PO DAILY PRN 06/08/17 [History] LORazepam 1 mg PO QID PRN 06/11/17 [History] Albuterol/Ipratropium [DuoNeb 3.0-0.5 MG/3 ML] 3 ml NEB Q6HRRT PRN 06/18/17 [ History] Acetaminophen [Tylenol] 325 - 650 mg PO Q4H PRN tablet 06/21/17 [Rx] DULoxetine [Cymbalta] 30 mg PO 0908/02/17 [History] Nicotine Polacrilex [Nicorelief] 4 mg CHEW Q2H PRN gum 08/05/17 [Rx] Budesonide/Formoterol Fumarate [Symbicort 160-4.5 Mcg Inhaler] 2 puff INH BID [History] Levofloxacin 750 mg PO 209903/23/18 [History] Omeprazole 20 mg PO 89903/23/18 [History] Umeclidinium [place] [Incruse Ellipta*] 1 puff INH 89903/23/18 [History] Cumen 1 tab PO 89904/01/18 [History] [place]umerac 1 [place] 89904/01/18 [History] Venetoclax [Venclexta] 100 mg PO 89904/01/18 [History] Vitamin E 400 unit PO DAILY 04/01/18 [History] diphenhydrAMINE HCl [Benadryl] 25 mg PO 2099 PRN 04/01/18 [History] LORazepam 2 mg PO 209905/23/18 [History] Past Medical History HEENT History: Reports: Impaired Vision Cardiovascular History: Reports: Blood Clots/VTE/DVT, Hypertension, SOB on Exertion Respiratory History: Reports: COPD, SOB, Other (See Below) Other Respiratory History: Home oxygen prn, fungal lung infection. Gastrointestinal History: Reports: Chronic Diarrhea Genitourinary History: Reports: None [employer]PLI[employer]ES S[employer]KER History: Reports: Musculoskeletal History: Reports: Arthritis Neurological History: Reports: None Psychiatric History: Reports: Addiction, Anxiety, Depression, Panic Attack Hematologic History: Reports: Other (See Below) Other Hematologic History: MDS, standing orders for platelet and PRBC transfusions. Immunologic History: Reports: Immunosuppression Oncologic (Cancer) History: Reports: Other (See Below) Other Oncologic History: MDS Dermatologic History: Reports: Psoriasis - Infectious Disease History Infectious Disease History: Reports: Chicken Pox, Measles, Mumps, Shingles - Past Surgical History HEENT Surgical History: Reports: None Cardiovascular Surgical History: Reports: None Respiratory Surgical History: Reports: None GI Surgical History: Reports: Cholecystectomy, Colonoscopy, EGD Female Surgical History: Reports: Hysterectomy Neurological Surgical History: Reports: None Musculoskeletal Surgical History: Reports: None Oncologic Surgical History: Reports: Bone Marrow Aspiration Other Oncologic Surgeries/Procedures: Bone Marrow Biopsy completed 02/28/18 Dermatological Surgical History: Reports: None Social & Family History - Family History Family Medical History: Noncontributory - Caffeine Use Caffeine Use: Reports: Coffee H&P Review of Systems - Review of Systems: Review Of Systems: ROS reveals no pertinent complaints other than HPI. Exam - Exam Exam: See Below - Exam Quality Assessment: Supplemental Oxygen General: Alert, Oriented, Cooperative, Other (Tearful) HEENT: Conjunctiva Clear Neck: Supple Lungs: Clear to Auscultation, Normal Respiratory Effort Cardiovascular: Regular Rate, Regular Rhythm GI/Abdominal Exam: Normal Bowel Sounds Extremities: Pedal Edema - Problem List (1) Comfort measures only status SNOMED Code(s): 38057264387251 ICD Code: Z51.5 - ENCOUNTER FOR PALLIATIVE CARE Status: Acute Current Visit: Yes (2) AML (acute myelogenous leukemia) SNOMED Code(s): 31657576 ICD Code: C92.00 - ACUTE MYELOBLASTIC LEUKEMIA, NOT HAVING ACHIEVED REMISSION Status: Acute Current Visit: Yes (3) Pneumonia SNOMED Code(s): 174689888 ICD Code: J18.9 - PNEUMONIA, UNSPECIFIED ORGANISM Status: Acute Current Visit: Yes (4) COPD (chronic obstructive pulmonary disease) SNOMED Code(s): 22722818 ICD Code: J44.9 - CHRONIC OBSTRUCTIVE PULMONARY DISEASE, UNSPECIFIED Status : Chronic Current Visit: No (5) Depression SNOMED Code(s): 63132073 ICD Code: F32.9 - MAJOR DEPRESSIVE DISORDER, SINGLE EPISODE, UNSPECIFIED Status: Chronic Current Visit: No (6) Insomnia SNOMED Code(s): 461213293 ICD Code: G47.00 - INSOMNIA, UNSPECIFIED Status: Chronic Current Visit: No Problem List Initiated/Reviewed/Updated: Yes Orders Last 24hrs: Active Orders 24 hr Category Date Time Status Patient Status [ADT] Routine ADT 06/03/18 13:54 Ordered Patient Status [ADT] Routine ADT 06/03/18 20:13 Ordered Bedrest Bathroom Privileges [RC] ASDIRECTED Care 06/03/18 13:54 Active Oxygen Therapy [RC] PRN Care 06/03/18 20:13 Active VTE/DVT Education [RC] PER UNIT ROUTINE Care 06/03/18 13:54 Active VTE/DVT Education [RC] PER UNIT ROUTINE Care 06/03/18 20:13 Active Vital Signs [RC] PER UNIT ROUTINE Care 06/03/18 13:54 Active Vital Signs [RC] Q4H Care 06/03/18 20:13 Active Consult to Spiritual Care [CONS] Routine Cons 06/03/18 20:13 Active Regular Diet [DIET] Diet 06/03/18 Dinner Active Acetaminophen [Tylenol] Med 06/03/18 20:11 Ordered 325 - 650 mg PO Q4H PRN Albuterol Med 06/03/18 20:11 Ordered 1 - 2 puff INH Q4HR PRN Albuterol/Ipratropium [DuoNeb 3.0-0.5 MG/3 ML] Med 06/03/18 20:11 Ordered 3 ml NEB Q6HRRT PRN Budesonide/Formoterol Fumarate Med 06/03/18 21:00 Ordered 2 puff INH BID DULoxetine [Cymbalta] Med 06/04/18 09:00 Ordered 30 mg PO 0900 Glycopyrrolate [Robinul] Med 06/03/18 15:54 Active 1 mg IVPUSH Q4H PRN LORazepam [Ativan] Med 06/03/18 15:57 Active 1 mg IVPUSH Q4H PRN Morphine Med 06/03/18 15:57 Active 2 mg IVPUSH Q2H PRN Omeprazole Med 06/04/18 09:00 Ordered 20 mg PO 0900 Ondansetron Med 06/03/18 20:11 Ordered 8 mg PO Q6H PRN Sodium Chloride 0.9% [Normal Saline] Med 06/03/18 17:00 Active 20 ml FLUSH Q8H Umeclidinium [place] [Incruse Ellipta] Med 06/04/18 09:00 Ordered DOSE mcg IH 0900 Peripheral IV Insertion Adult [OM.PC] Routine Oth 06/03/18 13:54 Ordered Resuscitation Status Routine Resus Stat 06/03/18 13:54 Ordered Medication Orders Acetaminophen (Tylenol) 325 - 650 mg PO Q4H PRN PRN Reason: Pain Albuterol/Ipratropium (Duoneb 3.0-0.5 Mg/3 Ml) 3 ml NEB Q6HRRT PRN PRN Reason: Dyspnea Duloxetine HCl (Cymbalta) 30 mg PO 0900 MIKIE Glycopyrrolate (Robinul) 1 mg IVPUSH Q4H PRN PRN Reason: secretions Lorazepam (Ativan) 1 mg IVPUSH Q4H PRN PRN Reason: Anxiety Last Admin: 06/03/18 18:28 Dose: 1 mg Morphine Sulfate (Morphine) 2 mg IVPUSH Q2H PRN PRN Reason: Pain Last Admin: 06/03/18 18:28 Dose: 2 mg Non-Formulary Medication (Albuterol) 1 - 2 puff INH Q4HR PRN PRN Reason: Shortness of Breath Non-Formulary Medication (Budesonide/Formoterol Fumarate) 2 puff INH BID MIKIE Non-Formulary Medication (Ondansetron) 8 mg PO Q6H PRN PRN Reason: Nausea Omeprazole (Omeprazole) 20 mg PO 0900 MIKIE Sodium Chloride (Normal Saline) 20 ml FLUSH Q8H MIKIE Umeclidinium [place] (Incruse Ellipta) mcg IH 0900 MIKIE Assessment/Plan Comment:: Comfort Care. Morphine and lorazepam PRN for comfort. AML. Discontinuing treatment and transfusions. COPD. Will continue with inhaled and nebulized meds for comfort. Depression. Continue cymbalta.
[2018-06-03] MEDS ORDERED: Albuterol 8 GM Inhaler INH PRN (21:01)
[2018-06-03] MEDS ORDERED: Ondansetron 4 MG Tab.DIS PO PRN ×2 (22:04→22:05)
[2018-06-03] MEDS: Sodium Chloride 0.9% 20 ML SDV FLUSH SCH (22:54)
[2018-06-03] MEDS: Budesonide/Formoterol 80-4.5 MCG/Puff 6.9 GM Inhaler INH SCH (23:34)
[2018-06-04] MEDS: Morphine 2 MG/ML Syringe IVPUSH PRN ×5 (01:22→10:20)
[2018-06-04] MEDS: Sodium Chloride 0.9% 20 ML SDV FLUSH SCH ×5 (02:24→22:13)
[2018-06-04] MEDS: LORazepam 2 MG/ML SDV IVPUSH PRN ×7 (03:48→23:08)
[2018-06-04] MEDS: Albuterol/Ipratropium 3.0-0.5 MG/3 ML Neb Soln NEB PRN (06:12)
[2018-06-04] MEDS: Omeprazole 20 MG Cap.CR PO SCH ×2 (06:13→12:13)
[2018-06-04] MEDS: Umeclidinium Bromide 62.5 MCG 30 Puff Inhaler IH SCH (12:13)
[2018-06-04] MEDS: DULoxetine 30 MG Cap PO SCH (12:13)
[2018-06-04] MEDS: Budesonide/Formoterol 80-4.5 MCG/Puff 6.9 GM Inhaler INH SCH ×2 (12:14→21:29)
[2018-06-04] MEDS: Morphine 4 MG/ML Syringe IVPUSH PRN ×5 (12:41→20:30)
[2018-06-05] MEDS: Morphine 4 MG/ML Syringe IVPUSH PRN ×6 (01:06→16:10)
[2018-06-05] MEDS: Sodium Chloride 0.9% 20 ML SDV FLUSH SCH ×4 (01:06→16:55)
[2018-06-05] MEDS: Glycopyrrolate 0.2 MG/ML 5 ML MDV IVPUSH PRN ×2 (01:14→16:12)
[2018-06-05] MEDS: LORazepam 2 MG/ML SDV IVPUSH PRN ×3 (02:00→10:40)
[2018-06-05] MEDS ORDERED: Acetaminophen 325 MG Supp RECTAL PRN (04:20)
[2018-06-05] MEDS: Omeprazole 20 MG Cap.CR PO SCH (06:20)
[2018-06-05] MEDS: DULoxetine 30 MG Cap PO SCH (16:21)
[2018-06-05] MEDS: Umeclidinium Bromide 62.5 MCG 30 Puff Inhaler IH SCH (16:21)
[2018-06-05] MEDS: Budesonide/Formoterol 80-4.5 MCG/Puff 6.9 GM Inhaler INH SCH (16:21)
[2018-06-05] MEDS ORDERED: Acetaminophen 650 MG Supp RECTAL PRN (17:05)
[2018-06-05] MEDS ORDERED: Morphine 10 MG/ML Syringe IVPUSH PRN ×2 (17:26→17:44)
[2018-06-05] MEDS: Morphine 10 MG/ML Syringe IVPUSH SCH ×4 (17:53→23:44)
[2018-06-06] MEDS: Sodium Chloride 0.9% 20 ML SDV FLUSH SCH (01:41)
[2018-06-06] MEDS: Morphine 10 MG/ML Syringe IVPUSH SCH (01:42)
--- NOTE | 2018-06-06 08:41 | PCM.DCSUM1 ---
Discharge Summary - Hospital Course Free Text/Narrative:: Jennifer is discharged due to from a swingbed stay of 06/03/18 - 06/06/18. She was admitted after a stay, initally in [place], with transfer to [place] for pneumonia and bone marrow biopsy to assess her response to chemotherapy. She has a diagnosis of AML. After bone marrow biopsy was found to show progression of disease she elected to stop treatment with chemotherapy, antibiotics as well as blood product transfusion. [facility] was [facility] for comfort care. She was managed with lorazepam as well as morphine for anxiety and pain respectively. She was also on oxygen for comfort. She was initially very tearful trying to come to tiffany with the dying process. On 06/05/18 I was notified by nursing staff that she was no longer taking anything orally and so her oral medications were discontinued. She peacefully at approximately 2:00 AM 06/06/18. Discharge Diagnosis: secondary to AML Diagnosis: Stroke: No Modified Evangeline Scale: Modified Evangeline Scale Score: 6 - Discharge Data Discharge Date: 06/06/18 Discharge Disposition: 20 Condition: Undetermined - Discharge Diagnosis/Problem(s) (1) Comfort measures only status SNOMED Code(s): 21509638156082 ICD Code: Z51.5 - ENCOUNTER FOR PALLIATIVE CARE Status: Acute (2) AML (acute myelogenous leukemia) SNOMED Code(s): 57533755 ICD Code: C92.00 - ACUTE MYELOBLASTIC LEUKEMIA, NOT HAVING ACHIEVED REMISSION Status: Acute (3) Pneumonia SNOMED Code(s): 210291334 ICD Code: J18.9 - PNEUMONIA, UNSPECIFIED ORGANISM Status: Acute (4) COPD (chronic obstructive pulmonary disease) SNOMED Code(s): 32092826 ICD Code: J44.9 - CHRONIC OBSTRUCTIVE PULMONARY DISEASE, UNSPECIFIED Status : Chronic (5) Depression SNOMED Code(s): 68763584 ICD Code: F32.9 - MAJOR DEPRESSIVE DISORDER, SINGLE EPISODE, UNSPECIFIED Status: Chronic (6) Insomnia SNOMED Code(s): 912724355 ICD Code: G47.00 - INSOMNIA, UNSPECIFIED Status: Chronic - Patient Summary/Data Consults: Consultations 06/03/18 20:13 Consult to Spiritual Care [CONS] Routine - Discharge Plan *PRESCRIPTION DRUG MONITORING PROGRAM REVIEWED*: Not Applicable *COPY OF PRESCRIPTION DRUG MONITORING REPORT IN PATIENT TEOFILO: Not Applicable Home Medications: Home Meds Cholecalciferol (Vitamin D3) [Vitamin D3] 1,000 units PO 209912/09/16 [History] Ondansetron HCl [Ondansetron] 8 mg PO Q6H PRN 02/15/17 [History] Albuterol [Ventolin HFA] 1 - 2 puff INH Q4HR PRN 04/19/17 [History] Polyethylene Glycol 3350 [Miralax] 17 gram PO DAILY PRN 06/08/17 [History] LORazepam 1 mg PO QID PRN 06/11/17 [History] Albuterol/Ipratropium [DuoNeb 3.0-0.5 MG/3 ML] 3 ml NEB Q6HRRT PRN 06/18/17 [ History] Acetaminophen [Tylenol] 325 - 650 mg PO Q4H PRN tablet 06/21/17 [Rx] DULoxetine [Cymbalta] 30 mg PO 0908/02/17 [History] Nicotine Polacrilex [Nicorelief] 4 mg CHEW Q2H PRN gum 08/05/17 [Rx] Budesonide/Formoterol Fumarate [Symbicort 160-4.5 Mcg Inhaler] 2 puff INH BID [History] Levofloxacin 750 mg PO 209903/23/18 [History] Omeprazole 20 [place] PO 89903/23/18 [History] Umeclidinium [place] [Incruse Ellipta*] 1 puff INH 89903/23/18 [History] Cumen 1 tab PO 89904/01/18 [History] Tumerac 1 tab PO 89904/01/18 [History] Venetoclax [Venclexta] 100 mg PO 89904/01/18 [History] Vitamin E 400 unit PO DAILY 04/01/18 [History] diphenhydrAMINE HCl [Benadryl] 25 mg PO 2099 PRN 04/01/18 [History] LORazepam 2 mg PO 209905/23/18 [History] - Discharge Summary/Plan Comment DC Time >30 min.: No - Patient Data Vitals - Most Recent: Last Vital Signs Temp 99.5 F 06/05/18 06:37 Pulse Resp BP Pulse Ox 95 06/03/18 21:31 Weight - Most Recent: 162 lb 4 oz Med Orders - Current: Current Medications Discontinued Medications Acetaminophen (Tylenol) 325 - 650 mg PO Q4H PRN PRN Reason: Pain Acetaminophen (Tylenol) 325 mg RECTAL Q4H PRN PRN Reason: Fever Greater Than 101 Last Admin: 06/05/18 05:02 Dose: 325 mg Acetaminophen (Tylenol) 650 mg RECTAL Q4H PRN PRN Reason: Fever Albuterol (Ventolin Hfa) 1 - 2 gm INH Q6H PRN PRN Reason: WHEEZING Last Admin: 06/04/18 01:27 Dose: 2 puff Albuterol/Ipratropium (Duoneb 3.0-0.5 Mg/3 Ml) 3 ml NEB Q6HRRT PRN PRN Reason: Dyspnea Last Admin: 06/04/18 06:12 Dose: 3 ml Budesonide/Formoterol Fumarate (Symbicort 80-4.5 Mcg) 2 gm INH BID MIKIE Last Admin: 06/05/18 16:21 Dose: Not Given Duloxetine HCl (Cymbalta) 30 mg PO 0900 MIKIE Last Admin: 06/05/18 16:21 Dose: Not Given Glycopyrrolate (Robinul) 1 mg IVPUSH Q4H PRN PRN Reason: secretions Last Admin: 06/05/18 16:12 Dose: 1 mg Lorazepam (Ativan) 1 mg IVPUSH Q4H PRN PRN Reason: Anxiety Last Admin: 06/04/18 09:10 Dose: 1 mg Lorazepam (Ativan) 2 mg IVPUSH Q1H PRN PRN Reason: Anxiety Last Admin: 06/05/18 10:40 Dose: 2 mg Lorazepam (Lorazepam) 2 mg IVPUSH Q1H PRN PRN Reason: Anxiety Last Admin: 06/05/18 17:38 Dose: 2 mg Morphine Sulfate (Morphine) 2 mg IVPUSH Q2H PRN PRN Reason: Pain Last Admin: 06/04/18 10:20 Dose: 2 mg Morphine Sulfate (Morphine) 2 - 4 mg IVPUSH Q2H PRN PRN Reason: pain, restlessness Last Admin: 06/05/18 16:10 Dose: 4 mg Morphine Sulfate (Morphine) 5 mg IVPUSH Q1H PRN PRN Reason: Pain Morphine Sulfate (Morphine) 5 mg IVPUSH Q2H [facility] Last Admin: 06/06/18 01:42 Dose: 5 mg Morphine Sulfate (Morphine) 5 mg IVPUSH ASDIRECTED PRN PRN Reason: Pain Last Admin: 06/05/18 19:15 Dose: 5 mg Non-Formulary Medication (Ondansetron) 8 mg PO Q6H PRN PRN Reason: Nausea Omeprazole (Omeprazole) 20 mg PO 0700 [facility] Last Admin: 06/05/18 06:20 Dose: Not Given Ondansetron HCl (Zofran Odt) 8 mg PO Q4H PRN PRN Reason: Nausea/Vomiting Ondansetron HCl (Zofran Odt) 8 mg PO Q6H PRN PRN Reason: Nausea/Vomiting Sodium Chloride (Saline Flush) 10 ml FLUSH Q8HR PRN PRN Reason: keep vein open Sodium Chloride (Normal Saline) 20 ml FLUSH Q8H [facility] Last Admin: 06/06/18 01:41 Dose: 20 ml Umeclidinium [place] (Incruse Ellipta) 0 mcg IH 0900 [facility] Last Admin: 06/05/18 16:21 Dose: Not Given
== END 2018-06-06 02:05 | disposition expired | DRG 834 ==
LOC: KA.MS 18:14
PROVIDERS: ADMIT Internal Medicine; ATTEND Internal Medicine
PROC: 3E033WL Introduction of Immunosuppressive into Peripheral Vein, Percutaneous (ICD-10-PCS; principal; 2018-06-03)
DX: C92.00 Acute myeloblastic leukemia, not having achieved remission (principal); J18.9 Pneumonia, unspecified organism; J44.0 Chronic obstructive pulmonary disease with (acute) lower respiratory infection; Z51.5 Encounter for palliative care; K52.9 Noninfective gastroenteritis and colitis, unspecified; M19.90 Unspecified osteoarthritis, unspecified site; F41.0 Panic disorder [episodic paroxysmal anxiety]; F32.9 Major depressive disorder, single episode, unspecified; H54.7 Unspecified visual loss; D46.9 Myelodysplastic syndrome, unspecified; G47.00 Insomnia, unspecified; I10 Essential (primary) hypertension; Z86.718 Personal history of other venous thrombosis and embolism; Z99.81 Dependence on supplemental oxygen; Z79.899 Other long term (current) drug therapy; Z88.0 Allergy status to penicillin; Z90.49 Acquired absence of other specified parts of digestive tract; Z90.710 Acquired absence of both cervix and uterus
CPT/HCPCS: 51702; A9270-GY; J2060; J2270; J3490; J7620-GY